=== PATIENT | male | born 1940 | race Caucasian/White ===

== ENCOUNTER → 2020-01-28 | Outpatient (CLI) | payer MEDICARE, OTHER ==
--- NOTE | 2020-01-28 11:30 | Diagnostic Imaging Report ---
INDICATION: BILATERAL POST TRAUMATIC OSTEOARTHRITIS TECHNIQUE: 2 views of the bilateral knee CORRELATION STUDY: None FINDINGS: Both knees demonstrate rather marked narrowing at the medial and to lesser degree lateral compartment. Medially, there is nearly gpdx-[id number] present of both knees. There is moderate calcinosis of the lateral compartments as well. Very mild marginal osteophyte formation is noted bilaterally. Additionally, there is marked narrowing at the patellofemoral compartments again of both knees. This includes prominent osteophyte formation of the distal anterior femur as well as superior and inferior pole of patella. IMPRESSION: 1. Rather markedly advanced tricompartment degenerative changes of both knees. The overall severity appears to be fairly similar between both sides. Dictated by: Dictated on workstation # [id number]
== END ==
LOC: RAD FS 10:49
PROVIDERS: ATTEND Emergency Medicine
DX: M17.0 Bilateral primary osteoarthritis of knee (principal)

== ENCOUNTER 2022-12-31 15:13 | Inpatient (IN) | payer MEDICARE, OTHER ==
[~2022-12-31] VITALS: Ht 172 cm; Wt 91.1 kg
[2022-12-31] MEDS ORDERED: NS IV 1000 ML 1,000 ML IV STA (15:24)
[2022-12-31] MEDS ORDERED: ASPIRIN 81 MG CHEWABLE TABLET PO ONE (15:30)
--- NOTE | 2022-12-31 15:43 | ED General ---
General Chief Complaint: Neurological Problems Stated Complaint: GEN WEAKNESS Nursing Triage Note: ARRIVED VIA EMS FROM HOME. EMS REPORTS PT BEING IN BED X2 DAYS ET COVERED IN URINE. PT COMPLAINS OF WEAKNESS AND CHEST PAIN. ALERT BUT REPEATS QUESTIONS. Source of Information: Patient, EMS History of Present Illness Date Seen by Provider: Dec 31, 2022 Time Seen by Provider: 15:13 Initial Comments 82-year-old male presenting by EMS with complaints of generalized weakness. He was also complaining of chest pain. He had not been out of bed for 2 days. He had been urinating on himself in bed. He is alert and awake but does ask repetitive questions. He states that he was also having back pain. He had denied any headache or fall or injury. He felt like he was having some shortness of breath. He has a history of hyperlipidemia, hypothyroid, type 2 diabetes, BPH, COPD, arrhythmia and has a pacemaker. He has chronic edema and takes Lasix. He usually follows with Dr. Oswald. He could not say why he could not get up and get out of bed or to walk. Family reports that he does have a history of recurrent urinary tract infections as well. Timing/Duration: 1-2 Days Severity: Severe Associated Systoms: Chest Pain; No Cough, No Diaphoresis, No Fever/Chills, No Headaches, No Loss of Appetite; Malaise; No Nausea/Vomiting, No Rash, No Seizure; Shortness of Air; No Syncope; Weakness Allergies and Home Medications Allergies Coded Allergies: No Known Drug Allergies (Unverified , 12/31/22) Patient Home Medication List Home Medication List Reviewed: Yes Review of Systems Review of Systems Constitutional: No chills, No fever; malaise, weakness EENTM: no symptoms reported Respiratory: see HPI Cardiovascular: see HPI Gastrointestinal: no symptoms reported Genitourinary: No dysuria Musculoskeletal: back pain Skin: no symptoms reported Psychiatric/Neurological: Weakness Past Lzpezse-Ncatol-Xulurv Hx Patient Social History Tobacco Use?: No Substance use?: No Alcohol Use?: Yes Alcohol Frequency: Couple times a week Physical Exam Vital Signs Vital Signs - First Documented 12/31/22 15:13 Temp 36.5 Pulse 39 Resp 16 B/P (MAP) 135/54 (81) Pulse Ox 96 O2 Delivery Room Air Capillary Refill : Less Than 3 Seconds Height, Weight, BMI Height: '" Weight: lbs. oz. kg; 31.00 BMI Method: General Appearance: No Apparent Distress, Other (Disheveled appearance and smells strongly of urine as he is in urine soaked clothing) HEENT: PERRL/EOMI, Pharynx Normal Neck: Full Range of Motion, Normal Inspection, Non Tender, Supple Respiratory: Chest Non Tender, Lungs Clear, Normal Breath Sounds, No Accessory Muscle Use, No Respiratory Distress Cardiovascular: Regular Rate, Rhythm, Normal Peripheral Pulses, Extra Beats Gastrointestinal: Normal Bowel Sounds, No Pulsatile Mass, Non Tender, Soft Rectal: Deferred Extremity: Normal Capillary Refill, Pedal Edema (2 + pitting edema to BLE) Neurologic/Psychiatric: Alert, Oriented x3, No Motor/Sensory Deficits, rolloff driver II- XII Norm as Tested Skin: Warm/Dry, Erythema (mild erythema to groin and buttocks from sitting in urine soaked clothing) Focused Exam Lactate Level 12/31/22 15:25: Lactic Acid Level 2.06*H Lactic Acid Level Laboratory Tests Test 12/31/22 15:25 Lactic Acid Level 2.06 MMOL/L (0.50-2.00) *H Progress/Results/Core Measures Suspected Sepsis SIRS Temperature: Pulse: 39 Respiratory Rate: 16 Laboratory Tests 12/31/22 16:05: White Blood Count 11.8H Blood Pressure 135 /54 Mean: 81 12/31/22 15:25: Lactic Acid Level 2.06*H Laboratory Tests 12/31/22 16:05: Creatinine 1.10, Platelet Count 200, Total Bilirubin 0.6 12/31/22 16:50: INR Comment 1.1 Results/Orders Lab Results Laboratory Tests Test 12/31/22 15:25 12/31/22 15:56 12/31/22 16:05 12/31/22 16:50 Range/Units Urine Color YELLOW Urine Clarity CLEAR Urine pH 5.5 5-9 Urine Specific [place] 1.025 H 1.016-1.022 Urine Protein NEGATIVE NEGATIVE Urine Glucose (UA) NEGATIVE NEGATIVE Urine Ketones 2+ H NEGATIVE Urine Nitrite NEGATIVE NEGATIVE Urine Bilirubin 1+ H NEGATIVE Urine Urobilinogen 0.2 < = 1.0 MG/DL Urine Leukocyte Esterase NEGATIVE NEGATIVE Urine RBC (Auto) NEGATIVE NEGATIVE Urine RBC 10-25 H /HPF Urine WBC 0-2 /HPF Urine Squamous Epithelial Cells NONE /HPF Urine Crystals NONE /LPF Urine Bacteria TRACE /HPF Urine Casts PRESENT /LPF Urine Hyaline Casts 0-2 H /LPF Urine Mucus NEGATIVE /LPF Urine Culture Indicated NO Lactic Acid Level 2.06 *H 0.50-2.00 MMOL/L Urine Opiates Screen NEGATIVE NEGATIVE Urine Oxycodone Screen NEGATIVE NEGATIVE Urine Methadone Screen NEGATIVE NEGATIVE Urine Barbiturates Screen POSITIVE H NEGATIVE Ur Tricyclic Antidepressants Screen NEGATIVE NEGATIVE Urine Phencyclidine Screen NEGATIVE NEGATIVE Urine Amphetamines Screen NEGATIVE NEGATIVE Urine Methamphetamines Screen NEGATIVE NEGATIVE Urine Benzodiazepines Screen NEGATIVE NEGATIVE Urine Cocaine Screen NEGATIVE NEGATIVE Urine Cannabinoids Screen POSITIVE H NEGATIVE Influenza Type A (RT-PCR) Not Detected Not Detecte Influenza Type B (RT-PCR) Not Detected Not Detecte SARS-CoV-2 RNA (RT-PCR) Not Detected Not Detecte White Blood Count 11.8 H 4.3-11.0 10^3/uL Red Blood Count 5.00 4.30-5.52 10^6/uL Hemoglobin 16.1 13.3-17.7 g/dL Hematocrit 49 40-54 % Mean Corpuscular Volume 97 80-99 fL Mean Corpuscular Hemoglobin 32 25-34 pg Mean Corpuscular Hemoglobin Concent 33 32-36 g/dL Red Cell Distribution Width 12.6 10.0-14.5 % Platelet Count 200 130-400 10^3/uL Mean Platelet Volume 9.0 9.0-12.2 fL Immature Granulocyte % (Auto) 1 % Neutrophils (%) (Auto) 87 H 42-75 % Lymphocytes (%) (Auto) 5 L 12-44 % Monocytes (%) (Auto) 7 0-12 % Eosinophils (%) (Auto) 0 0-10 % Basophils (%) (Auto) 0 0-10 % Neutrophils # (Auto) 10.3 H 1.8-7.8 10^3/uL Lymphocytes # (Auto) 0.6 L 1.0-4.0 10^3/uL Monocytes # (Auto) 0.9 0.0-1.0 10^3/uL Eosinophils # (Auto) 0.0 0.0-0.3 10^3/uL Basophils # (Auto) 0.0 0.0-0.1 10^3/uL Immature Granulocyte # (Auto) 0.1 0.0-0.1 10^3/uL Neutrophils % (Manual) 85 % Lymphocytes % (Manual) 7 % Monocytes % (Manual) 8 % Sodium Level 136 135-145 MMOL/L Potassium Level 4.2 3.6-5.0 MMOL/L Chloride Level 99 98-107 MMOL/L Carbon Dioxide Level 24 21-32 MMOL/L Anion Gap 13 5-14 MMOL/L Blood Urea Nitrogen 19 H 7-18 MG/DL Creatinine 1.10 0.60-1.30 MG/DL Estimat Glomerular Filtration Rate 67 BUN/Creatinine Ratio 17 Glucose Level 117 H 70-105 MG/DL Calcium Level 9.4 8.5-10.1 MG/DL Corrected Calcium 9.6 8.5-10.1 MG/DL Magnesium Level 2.3 1.6-2.4 MG/DL Total Bilirubin 0.6 0.1-1.0 MG/DL Aspartate Amino Transf (AST/SGOT) 19 5-34 U/L Alanine Aminotransferase (ALT/SGPT) 17 0-55 U/L Alkaline Phosphatase 96 40-136 U/L Total Creatine Kinase 152 30-200 U/L Myoglobin 99.0 H <72.0 NG/ML Troponin I < 0.30 <0.30 NG/ML Pro-B-Type Natriuretic Peptide 1999.0 H <450.0 PG/ML Total Protein 7.6 6.4-8.2 GM/DL Albumin 3.8 3.2-4.5 GM/DL Lipase 10 8-78 U/L Serum Alcohol < 10 <10 MG/DL Prothrombin Time 14.6 12.2-14.7 SEC INR Comment 1.1 0.8-1.4 Activated Partial Thromboplast Time 25 24-35 SEC D-Dimer 0.64 H 0.00-0.49 UG/ML My Orders Orders - MEET CHAPPELL MD Cbc And Automated Diff (12/31/22 15:19) Magnesium (12/31/22 15:19) Chest 1 View Ap/Pa Only (12/31/22 15:19) Ekg Tracing (12/31/22 15:19) Comprehensive Metabolic Panel (12/31/22 15:19) Myoglobin Serum (12/31/22 15:19) O2 (12/31/22 15:19) Monitor-Rhythm Ecg Trace Only (12/31/22 15:19) Aspirin Chewable Tablet (Aspirin Chewabl (12/31/22 15:30) Ed Iv/Invasive Line Start (12/31/22 15:19) Lipase (12/31/22 15:19) Troponin I Fs (12/31/22 15:19) Probnp Fs (12/31/22 15:19) Ua Culture If Indicated (12/31/22 15:19) Drug Screen Stat (Urine) (12/31/22 15:19) Alcohol (12/31/22 15:19) Blood Culture (12/31/22 15:19) Nichole Cath (12/31/22 15:19) Lactic Acid Analyzer (12/31/22 15:19) Covid 19 Inhouse Test (12/31/22 15:19) Influenza A And B By Pcr (12/31/22 15:19) Ct Head Wo (12/31/22 15:19) Ct Thoracic/Lumbar Spine Wo (12/31/22 15:19) Ns Iv 1000 Ml (Ns Iv 1000 Ml) (12/31/22 15:24) Creatine Kinase (12/31/22 15:55) Manual Differential (12/31/22 16:05) Creatine Kinase Mb (12/31/22 16:05) Protime With Inr (12/31/22 16:50) Partial Thromboplastin Time (12/31/22 16:50) Fibrin Degradation Products (12/31/22 16:50) Ketorolac Injection (Ketorolac Injection (12/31/22 17:22) Ed Admission (Communication) (12/31/22 18:14) Lactated Ringers 1,000 Ml (Lactated Ring (12/31/22 18:14) Medications Given in ED Current Medications Medications Dose Ordered Sig/Lora Route Start Time Stop Time Status Last Admin Dose Admin Aspirin 324 mg ONCE ONCE PO 12/31/22 15:30 12/31/22 15:31 DC 12/31/22 16:26 324 MG Vital Signs/I&O 12/31/22 15:13 Temp 36.5 Pulse 39 Resp 16 B/P (MAP) 135/54 (81) Pulse Ox 96 O2 Delivery Room Air Capillary Refill : Less Than 3 Seconds Blood Pressure Mean: 81 Progress Note #1: Progress Note Differential diagnosis includes stroke, myocardial infarction, electrolyte imbalance, UTI, sepsis, kidney failure, hepatic failure, alcohol abuse, drug abuse. Establish peripheral IV access and send labs for complete blood count, comprehensive metabolic profile, blood cultures, lactic acid, magnesium, troponin, proBNP, CK, CK-MB, myoglobin, alcohol, urinalysis, urine drug screen. Placed Nichole catheter as patient was having weakness where he could not get out of bed. Needed to obtain accurate ALBA's on the patient to see what is urine ou tput was. Concern for possible rhabdomyolysis. Obtain CT scan of the head, spine, Chest xray. Electrocardiogram to evaluate for ischemia, cardiac telemetry and watch his heart rate and rhythm. On my initial interpretation of his cardiac telemetry shows a paced rhythm with a heart rate of 73 bpm and bigeminy. There is no old tracings for comparison. Progress Note #2: Time: 16:35 Progress Note Labs show mild elevation of his white blood cell count of 11.8. He has 87% neutrophils. His comprehensive metabolic profile showed a BUN of 19 with a creatinine of 1.1. Glucose was slightly elevated at 117. Lactic acid was at the upper limit of normal at 2.06. His magnesium was normal at 2.3. Lipase also normal at 10. Alcohol level was normal at less than 10. His swab for COVID and flu was negative. Urinalysis had specific gravity 1.025 with 2+ ketones and 10-25 red blood cells. There is no leukocyte Estrace or nitrates and he had trace bacteria with 0-2 white blood cells. This did not appear to be an infected urine specimen that was obtained by catheterization. It did look like he had some dehydration with this elevated specific gravity. Awaiting imaging and cardiac enzymes. Progress Note #3: Time: 17:45 Progress Note His nephew has been sitting in the room with the patient and states that he has a DURABLE POWER OF WORKERS COMPENSATION CLAIMS ANALYST for the patient. Nephew reports that patient has no other family to help take care of him. Patient usually is living on his own and doing okay. He does state that the patient has been having hallucinations in the room which is new for him. He also stated that the patient has had a tremor for a long time and that he was prescribed medicine to help with that. The patient has never been diagnosed with Parkinson's or dementia. CTA scan imaging did not show any acute abnormality to account for his weakness, debility, delirium and hallucinations. His myoglobin was slightly elevated at 99 with the upper limit of normal at 72. His proBNP was slightly elevated at 1998. There is no previous labs for comparison. He was still too weak to try and stand or move in the room. He could barely sit up in the bed with assistance. [id number] Sheikh, the on-call hospitalist for [facility]. Patient history and presentation was reviewed with him. I reviewed relevant laboratory and imaging results as well as vital signs. Advised that patient was still too weak to get up and move here in the ED. He did want me to clarify with the family about DPOA, Dementia or parkinsons history, other family members or if only his Nephew to check on him. Will admit for delirium and hallucinations with debility and patient will likely require admit to penitentiary at discharge. will place queued orders on the patient. 1929 total CK was not elevated at 152. This helps to go against findings for rhabdomyolysis. 2209 EMS was finally able to come and take the patient for transport to [place]. ECG Initial ECG Impression Date: Dec 31, 2022 Initial ECG Impression Time: 15:31 Initial ECG Rate: 71 Initial ECG Comparisson: No Previous ECG Available Comment Paced rhythm with atrial and ventricular pacemaker. Heart rate 71 bpm. VT in terval [address] elevation. QT interval 445 ms with a QTc interval 467 ms. He has no prior tracing for comparison. He does have some artifact and wander on the tracing. Diagnostic Imaging Diagonstic Imaging: Xray Plain Films/CT/US/NM/MRI: chest Comments [facility]. [place], [place] NAME: HAWK NEVILLE [facility] REC#: [id number] PT STATUS: REG ER : 1940 PHYSICIAN: MEET CHAPPELL MD ADMIT DATE: 12/31/22/ER FS Draft Date of Exam:12/31/22 CHEST 1 VIEW AP/PA ONLY CLINICAL INDICATION: Patient with general weakness. EXAM: Portable chest x-ray upright view. COMPARISON: None. FINDINGS: Lungs/pleura: There is elevation of the right hemidiaphragm. There is mild right basilar atelectasis. There is no definite lung infiltrate. There is no pneumothorax. There is no pleural effusion. Mediastinum: Unremarkable. Pulmonary vasculature: There is mild pulmonary vascular congestion. Heart: There is cardiomegaly. Cardiac pacemaker is seen overlying the left chest with two leads projecting over the heart which appears intact. Bones/extrathoracic soft tissue: There are degenerative spurs involving the thoracic spine. IMPRESSION: 1: There is cardiomegaly with mild pulmonary vascular congestion which could be seen with congestive heart failure. 2: There is elevation of the right hemidiaphragm with mild right lung base atelectasis. Dictated on workstation # [id number] Dict: 12/31/221630 Trans: 12/31/221638 [id number] Interpreted by: JORDAN ESPINOZA MD Electronically signed by: Reviewed: Reviewed by Diagonstic Imaging: CT Plain Films/CT/US/NM/MRI: head Comments [facility] [place], [place] NAME: HAWK [facility]EV[facility]LE [facility] REC#: [id number] PT STATUS: REG ER : 1940 PHYSICIAN: MEET CHAPPELL MD ADMIT DATE: 12/31/22/ER FS Draft Date of Exam:12/31/22 CT HEAD WO PROCEDURE: CT head without contrast. TECHNIQUE: Multiple contiguous axial images were obtained through the brain without the use of intravenous contrast. Auto Exposure Controls were utilized during the CT exam to meet ALARA standards for radiation dose reduction. INDICATION: 68-year-old male with weakness. COMPARISONS: None. FINDINGS: Midline structures are not displaced. There are senescent changes in the brain with involutional changes and generalized atrophy. There is background chronic areas of microvascular ischemic change. Solis-white differentiation is maintained with no sulcal effacement. There are no abnormal extra-axial fluid collections or hemorrhage. Basilar cisterns appear normal. Sinuses, orbits and mastoid air cells are unremarkable. Bone windows show no calvarial changes IMPRESSION: Senescent brain with some mild involutional changes. Otherwise unremarkable nonenhanced CT brain. If symptoms warrant or persist, an MRI may be of further value. Dictated on workstation # [id number] Dict: 12/31/221629 Trans: 12/31/221632 PJE [id number] Interpreted by: GRECIA PERDUE MD Electronically signed by: Reviewed: Reviewed by Me Diagonstic Imaging: CT Plain Films/CT/US/NM/MRI: other (thoracic and lumbar spine) Comments [facility]. [place], [place] NAME: HAWK NEVILLE REC#: [id number] PT STATUS: REG ER : 1940 PHYSICIAN: MEET CHAPPELL MD ADMIT DATE: 12/31/22/ER FS Draft Date of Exam:12/31/22 CT THORACIC/LUMBAR SPINE WO CLINICAL INDICATION: Patient with weakness. Patient not able to get out of bed. Patient has back pain. EXAM: Axial CT scan of the thoracic and lumbar spine performed without IV contrast. Sagittal and coronal reformations were performed. Bone and soft tissue windows were created. Auto Exposure Controls were utilized during the CT exam to meet ALARA standards for radiation dose reduction. COMPARISON: None. FINDINGS: There is no acute thoracic or lumbar fracture or dislocation. There is chronic bilateral L5 spondylolysis with grade 1 anterolisthesis of L5 on S1. There are hypertrophic spurs throughout the thoracic and lumbar spine. There is severe bilateral L5-S1 neuroforamen narrowing. There is atelectasis involving the posterior aspects of both lungs. Thoracic and lumbar spine have normal alignment. The visualized extrathoracic, and lumbar soft tissue structures are unremarkable. IMPRESSION: 1: There is no acute thoracic spine and lumbar spine fracture or dislocation. 2: There is chronic bilateral L5 spondylolysis with grade 1 anterolisthesis of L5 on S1. Dictated on workstation # [id number] Dict: 12/31/22 1635 Trans: 12/31/[address] [facility] [id number] Interpreted by: JORDAN ESPINOZA MD Electronically signed by: Reviewed: Reviewed by Me Departure Communication (Admissions) Time/Spoke to Admitting Phy: 17:[phone] Sheikh, the on-call hospitalist for [facility]. Patient history and presentation was reviewed with him. I reviewed relevant laboratory and imaging results as well as vital signs. Advised that patient was still too weak to get up and move here in the ED. He did want me to clarify with the family about DPOA, Dementia or parkinsons history, other family members or if only his Nephew to check on him. Will admit for delirium and hallucinations with debility and patient will likely require admit to penitentiary at discharge. will place queued orders on the patient. Impression Primary Impression: Delirium Additional Impressions: Debilitated patient Weakness Dehydration Disposition: 30 STILL A PATIENT Condition: Stable Admissions Decision to Admit Reason: Admit from ER (General) Decision to Admit/Date: Dec 31, 2022 Time/Decision to Admit Time: 17:45 Departure-Patient Inst. Referrals: FEI OSWALD DO (PCP/Family) Primary Care Physician MEET CHAPPELL MD Dec 31, 2022 15:43
[2022-12-31 15:45] LABS: BILIRUBIN,URINE 1+ (NEGATIVE); CLARITY,URINE CLEAR; COLOR,URINE YELLOW; GLUCOSE, URINE (UA) NEGATIVE (NEGATIVE); KETONES,URINE 2+ (NEGATIVE); LEUKOCYTE ESTERASE ,URINE NEGATIVE (NEGATIVE); NITRITE,URINE NEGATIVE (NEGATIVE); PH,URINE 5.5 (5-9); PROTEIN,URINE NEGATIVE (NEGATIVE)
[2022-12-31 15:53] LABS: BACTERIA,URINE TRACE /HPF; HYALINE CASTS, URINE 0-2 /LPF; WBC,URINE 0-2 /HPF
[2022-12-31 15:56] LABS: BARBITURATE SCREEN URINE POSITIVE (NEGATIVE); CANNABINOID SCREEN, URINE POSITIVE (NEGATIVE)
[2022-12-31 15:57] LABS: AMPHETAMINE SCREEN, URINE NEGATIVE (NEGATIVE); COCAINE SCREEN URINE NEGATIVE (NEGATIVE); METHADONE STAT NEGATIVE (NEGATIVE); OPIATE SCREEN URINE NEGATIVE (NEGATIVE); OXYCODONE STAT NEGATIVE (NEGATIVE); TRICYCLIC ANTIDEPRESSANTS SCRE NEGATIVE (NEGATIVE)
[2022-12-31 16:09] LABS: BASOPHILS % (AUTO) 0 % (0-10); EOSINOPHILS % (AUTO) 0 % (0-10); HEMATOCRIT 49 % (40-54); HEMOGLOBIN 16.1 g/dL (13.3-17.7); LYMPHOCYTES # (AUTO) 0.6 10^3/uL (1.0-4.0); LYMPHOCYTES % (AUTO) 5 % (12-44); MEAN CORPUSCULAR HEMOGLOBIN 32 pg (25-34); MEAN CORPUSCULAR HGB CONC 33 g/dL (32-36); MEAN CORPUSCULAR VOLUME 97 fL (80-99); MONOCYTES # (AUTO) 0.9 10^3/uL (0.0-1.0); MONOCYTES % (AUTO) 7 % (0-12); NEUTROPHILS # (AUTO) 10.3 10^3/uL (1.8-7.8); NEUTROPHILS % (AUTO) 87 % (42-75); PLATELET COUNT 200 10^3/uL (130-400); WHITE BLOOD COUNT 11.8 10^3/uL (4.3-11.0)
[2022-12-31 16:30] LABS: BILIRUBIN,TOTAL 0.6 MG/DL (0.1-1.0); CALCIUM 9.4 MG/DL (8.5-10.1); CARBON DIOXIDE 24 MMOL/L (21-32); CHLORIDE 99 MMOL/L (98-107); MAGNESIUM 2.3 MG/DL (1.6-2.4); POTASSIUM 4.2 MMOL/L (3.6-5.0); SODIUM 136 MMOL/L (135-145); TOTAL PROTEIN 7.6 GM/DL (6.4-8.2)
[2022-12-31 16:34] LABS: ALKALINE PHOSPHATASE 96 U/L (40-136); BUN/CREATININE RATIO 17; GFR ESTIMATED 67; GLUCOSE 117 MG/DL (70-105)
--- NOTE | 2022-12-31 16:34 | Diagnostic Imaging Report ---
PROCEDURE: CT head without contrast. TECHNIQUE: Multiple contiguous axial images were obtained through the brain without the use of intravenous contrast. Auto Exposure Controls were utilized during the CT exam to meet ALARA standards for radiation dose reduction. INDICATION: 68-year-old male with weakness. COMPARISONS: None. FINDINGS: Midline structures are not displaced. There are senescent changes in the brain with involutional changes and generalized atrophy. There is background chronic areas of microvascular ischemic change. Solis-white differentiation is maintained with no sulcal effacement. There are no abnormal extra-axial fluid collections or hemorrhage. Basilar cisterns appear normal. Sinuses, orbits and mastoid air cells are unremarkable. Bone windows show no calvarial changes IMPRESSION: Senescent brain with some mild involutional changes. Otherwise unremarkable nonenhanced CT brain. If symptoms warrant or persist, an MRI may be of further value. Dictated by: Dictated on workstation # [id number]
[2022-12-31 16:35] LABS: ALANINE AMINOTRANSFERASE 17 U/L (0-55); ALBUMIN 3.8 GM/DL (3.2-4.5); LIPASE 10 U/L (8-78)
--- NOTE | 2022-12-31 16:39 | Diagnostic Imaging Report ---
CLINICAL INDICATION: Patient with general weakness. EXAM: Portable chest x-ray upright view. COMPARISON: None. FINDINGS: Lungs/pleura: There is elevation of the right hemidiaphragm. There is mild right basilar atelectasis. There is no definite lung infiltrate. There is no pneumothorax. There is no pleural effusion. Mediastinum: Unremarkable. Pulmonary vasculature: There is mild pulmonary vascular congestion. Heart: There is cardiomegaly. Cardiac pacemaker is seen overlying the left chest with two leads projecting over the heart which appears intact. Bones/extrathoracic soft tissue: There are degenerative spurs involving the thoracic spine. IMPRESSION: 1: There is cardiomegaly with mild pulmonary vascular congestion which could be seen with congestive heart failure. 2: There is elevation of the right hemidiaphragm with mild right lung base atelectasis. Dictated by: Dictated on workstation # [id number]
--- NOTE | 2022-12-31 16:47 | Diagnostic Imaging Report ---
CLINICAL INDICATION: Patient with weakness. Patient not able to get out of bed. Patient has back pain. EXAM: Axial CT scan of the thoracic and lumbar spine performed without IV contrast. Sagittal and coronal reformations were performed. Bone and soft tissue windows were created. Auto Exposure Controls were utilized during the CT exam to meet ALARA standards for radiation dose reduction. COMPARISON: None. FINDINGS: There is no acute thoracic or lumbar fracture or dislocation. There is chronic bilateral L5 spondylolysis with grade 1 anterolisthesis of L5 on S1. There are hypertrophic spurs throughout the thoracic and lumbar spine. There is severe bilateral L5-S1 neuroforamen narrowing. There is atelectasis involving the posterior aspects of both lungs. Thoracic and lumbar spine have normal alignment. The visualized extrathoracic, and lumbar soft tissue structures are unremarkable. IMPRESSION: 1: There is no acute thoracic spine and lumbar spine fracture or dislocation. 2: There is chronic bilateral L5 spondylolysis with grade 1 anterolisthesis of L5 on S1. Dictated by: Dictated on workstation # [id number]
[2022-12-31 17:06] LABS: INR 1.1 (0.8-1.4); PROTHROMBIN TIME PATIENT 14.6 SEC (12.2-14.7)
[2022-12-31 17:12] LABS: LYMPHOCYTES % (MANUAL) 7 %; MONOCYTES % (MANUAL) 8 %; NEUTROPHILS % (MANUAL) 85 %
[2022-12-31] MEDS ORDERED: KETOROLAC INJ 15 MG/ML VIAL IVP STA (17:22)
[2022-12-31] MEDS ORDERED: LACTATED RINGERS 1,000 ML 1,000 ML IV STA (18:14)
[2022-12-31] MEDS ORDERED: HALOPERIDOL INJECTION 5 MG/ML VIAL IM PRN (23:30)
[2022-12-31] MEDS ORDERED: ONDANSETRON 4 MG ORAL DISSOLVE TABLET PO PRN (23:30)
[2022-12-31] MEDS ORDERED: LACTULOSE SYRUP 10GM/15ML 30ML UDC PO PRN (23:30)
[2022-12-31] MEDS ORDERED: BISACODYL 10 MG SUPPOSITORY PR PRN (23:30)
[2022-12-31] MEDS ORDERED: ANTACID SUSPENSION 30 ML UDC PO PRN (23:30)
[2022-12-31] MEDS ORDERED: ONDANSETRON INJECTION 4 MG/2 ML (SDV) IV PRN (23:30)
[2023-01-01] VITALS (7 sets, daily range): BP systolic 103–142; BP diastolic 60–73
[2023-01-01 05:42] LABS: BASOPHILS % (AUTO) 0 % (0-10); EOSINOPHILS % (AUTO) 0 % (0-10); HEMATOCRIT 40 % (40-54); HEMOGLOBIN 13.5 g/dL (13.3-17.7); LYMPHOCYTES # (AUTO) 0.6 10^3/uL (1.0-4.0); LYMPHOCYTES % (AUTO) 6 % (12-44); MEAN CORPUSCULAR HEMOGLOBIN 32 pg (25-34); MEAN CORPUSCULAR HGB CONC 34 g/dL (32-36); MEAN CORPUSCULAR VOLUME 96 fL (80-99); MEAN PLATELET VOLUME 9.1 fL (9.0-12.2); MONOCYTES # (AUTO) 1.1 10^3/uL (0.0-1.0); MONOCYTES % (AUTO) 11 % (0-12); NEUTROPHILS # (AUTO) 8.5 10^3/uL (1.8-7.8); NEUTROPHILS % (AUTO) 83 % (42-75); PLATELET COUNT 178 10^3/uL (130-400); WHITE BLOOD COUNT 10.3 10^3/uL (4.3-11.0)
[2023-01-01 05:51] LABS: POTASSIUM 3.9 MMOL/L (3.6-5.0)
[2023-01-01 05:52] LABS: CALCIUM 8.4 MG/DL (8.5-10.1)
[2023-01-01 05:56] LABS: CREATININE SERUM 1.04 MG/DL (0.60-1.30)
[2023-01-01] MEDS: inSUlin ASPART 1 UNIT/0.01 ML (PER UNIT) SC SCH ×4 (06:00→21:18)
[2023-01-01] MEDS: LEVOTHYROXINE 75 MCG TABLET PO SCH (06:01)
[2023-01-01] MEDS: FUROSEMIDE 20 MG TABLET PO SCH ×2 (06:01→17:12)
[2023-01-01] MEDS: DOCUSATE SODIUM 100 MG CAPSULE PO SCH ×2 (08:12→20:51)
[2023-01-01] MEDS: APIXABAN 5 MG TABLET PO SCH ×2 (08:12→20:51)
[2023-01-01] MEDS ORDERED: SPIRONOLACTONE 25 MG TABLET PO SCH (09:00)
[2023-01-01] MEDS: ACETAMINOPHEN 325 MG TABLET PO PRN (09:27)
--- NOTE | 2023-01-01 09:54 | Physical Therapy Evaluation ---
PT Evaluation-General Medical Diagnosis Admission Date Dec 31, 2022 at 23:05 Medical Diagnosis: delirium, weakness, dehydration Onset Date: Dec 31, 2022 Therapy Diagnosis Therapy Diagnosis: debility Precautions Precautions/Isolations: Standard Precautions Weight Bear Status Right Lower Extremity: Right Full Weight Bearing Left Lower Extremity: Left Full Weight Bearing Referral Physician: Kori Reason for Referral: Evaluation/Treatment Medical History Pertinent Medical History: COPD, DM, Hypothroidism Additional Medical History HlP, BPH, arrhythmia, pacemaker, UTIs Current History EMS with c/o generalized weakness, chest pain. Pt. had been in bed for 2 days. Reviewed History: Yes Social History Home: Multilevel Current Living Status: Alone Entry Into Home: Stairs With Railing PT Steps Into Home: 4 PT Steps Inside Home: 10 Prior Prior Level of Function SCALE: Activities may be completed with or without assistive devices. 6-Ucqcfntpgy-tfnzcaq completes the activity by him/herself with no assistance from a helper. 5-Set-up or Clean-up Assistance-helper sets up or cleans up; patient completes activity. [place] assists only prior to or following the activity. 4-Supervision or Touching Assistance-helper provides verbal cues and/or touchin g/steadying and/or contact guard assistance as patient completes activity. Assistance may be provided throughout the activity or intermittently. 3-Partial/Moderate Assistance-helper does LESS THAN HALF the effort. [place] lifts, holds or supports trunk or limbs, but provides less than half the effort. 2-Substantial/Maximal Assistance-helper does MORE THAN HALF the effort. [place] lifts or holds trunk or limbs and provides more than half the effort. 3-Tarjhnxyb-lzghoo does ALL the effort. Patient does none of the effort to complete the activity. Or, the assistance of 2 or more helpers is required for the patient to complete the activity. If activity was not attempted, code reason: 7-Patient Refused. 9-Not Applicable-not attempted and the patient did not perform the activity before the current illness, exacerbation or injury. 10-Not Attempted due to Environmental Limitations-(lack of equipment, weather restraints, etc.). 88-Not Attempted due to Medical Conditions or Safety Concerns. Bed Mobility: 6 Transfers (B,C,W/C): 6 Gait: 6 Stairs: 6 Indoor Mobility (Ambulation): Independent Stairs: Independent Prior Devices Use: Walker PT Evaluation-Current Subjective Pt. c/o R ear/head pain and frequently asks for pain medicine. Nursing notified. Pt. agrees to sit up in chair. Objective Patient Orientation: Person Attachments: Nichole Catheter ROM/Strength ROM Upper Extremities WFL ROM Lower Extremities WFL Strength Upper Extremities n/a Strength Lower Extremities Grossly 2+/5 Integumentary/Posture Integumentary swelling (B) LE's Bowel Incontinence: No Bladder Incontinence: Nichole Cath Posture upright Neuromuscular (Tone, Coordination, Reflexes) diminished, occasional tremors observed Sensory Vision: Functional Hearing: Functional Sensation Right Upper Extremit: Intact Sensation Left Upper Extremity: Intact Sensation Right Lower Extremit: Intact Sensation Left Lower Extremity: Intact Transfers Lying to Sitting/Side of Bed(Q: 1 Sit to Stand (QC): 1 Chair/Obg-ub-Fczqg Xfer(QC): 1 Gait Does the Patient Walk?: No and Walking Goal IS indicated Balance Sitting Static: Fair Sitting Dynamic: Fair Standing Static: Poor Standing Dynamic: Poor Assessment/Needs Pt. is an 82 y.o. male with significant weakness and debility. He currently requires assist of 2-3 for transfers. Lyudmila sling placed under patient to aid in returned to bed from the chair. Pt. did have fair/good sitting balance at edge of bed but inability to stand. Pt. would benefit from skilled PT to improve strength and safe mobility. Likely will need detention care for discharge planning. Rehab Potential: Fair PT Casing Wringer Operator Goals Longterm Goals PT Casing Wringer Operator Goals Time Frame: Jan 08, 2023 Roll Left & Right (QC): 4 Sit to Lying (QC): 4 Lying-Sitting on Side/Bed(QC): 4 Sit to Stand (QC): 3 Chair/Cpx-id-Hswbq Xfer(QC): 3 Does the Patient Walk: Yes Walk 10 feet (QC): 3 PT Plan Problem List Problem List: Activity Tolerance, Functional Strength, Safety, Balance, Gait, Transfer, Bed Mobility, ROM Treatment/Plan Treatment Plan: Continue Plan of Care Treatment Plan: Bed Mobility, Concurrent Therapy, Education, Functional Activity Christelle, Functional Strength, Gait, Safety, Therapeutic Exercise, Transfers Treatment Duration: Jan 08, 2023 Frequency: 6 times per week Estimated Hrs Per Day: .25 hour per day Patient and/or Family Agrees t: Yes Time Time In: 899 Time Out: 924 DATE: Jan 01, 2023 Total Billed Treatment Time: 25 Total Billed Treatment 1, EVH 10', FA 15' BLANCO JOYNER PT Jan 01, 2023 09:54
[2023-01-01] MEDS ORDERED: FINA5TAB6 PO (11:46)
[2023-01-01] MEDS ORDERED: LEVO75TA PO (11:51)
[2023-01-01] MEDS ORDERED: EZET10TA49 PO (11:51)
[2023-01-01] MEDS ORDERED: TMSL.4C PO (11:51)
[2023-01-01] MEDS ORDERED: MIRA50TA PO (12:09)
[2023-01-01] MEDS ORDERED: PRIM125T PO (12:09)
[2023-01-01] MEDS ORDERED: APIX5TAB PO (12:09)
[2023-01-01] MEDS ORDERED: METF-397 PO (12:09)
[2023-01-01] MEDS ORDERED: FURO-124 PO (12:09)
[2023-01-01] MEDS: FINASTERIDE 5 MG TABLET PO SCH (12:24)
[2023-01-01] MEDS: oxyCODONE IMMEDIATE RELEASE 5 MG TABLET PO PRN ×3 (12:25→23:50)
[2023-01-01] MEDS: PRIMIDONE 250MG TABLET PO SCH (12:25)
[2023-01-01] MEDS: TAMSULOSIN 0.4 MG (FLOMAX) CAP PO SCH (17:12)
--- NOTE | 2023-01-01 18:27 | History & Physical-Hospitalist ---
History of Present Illness HPI/Chief Complaint William Flynn is an 82 year old male with PMH HTN, T2DM, HLD, AFib, CHF, pacemaker, BPH, obesity, who presented with weakness. He had reportedly not been out of bed for a couple days. He reportedly had urine on his clothing. He says he is normally able to walk, usually with a walker, but he can get around without any assistive device. He is currently unable to stand. He reports a right sided headache. he denies vision changes. He denies speech changes. He denies chest pain. He denies shortness of breath. He denies abdominal pain, nausea, vomiting, diarrhea. He denies dysuria. Source: patient Exam Limitations: no limitations Date Seen 01/01/23 Time Seen by a Provider: 10:50 Attending Physician Luis Fernando Oswald DO PCP Admitting Physician: Kayla Caro MD Attending Physician: Kayla Caro MD Referring Physician Date of Admission Dec 31, 2022 at 23:05 Home Medications & Allergies Home Medications Reviewed patient Home Medication Reconciliation performed by pharmacy medication reconciliations microbiology technician and/or nursing. Patients Allergies have been reviewed. Allergies Allergies Coded Allergies No Known Drug Allergies (Pmjyapymlb00/10/23) Past Bqqnjpw-Ybasfy-Vawylp Hx Patient Social History Tobacco Use?: No Use of E-Cig and/or Vaping dev: No Substance use?: No Alcohol Use?: Yes Alcohol Frequency: Couple times a week Pt feels they are or have been: No Current Status Advance Directives: Yes Advance Directive Location: Copy placed in chart Communicates: Verbally Primary Language: Malay Preferred Spoken Language: Malay Is interpretation needed?: No Implanted or Applied Medical D: Pacemaker Family Medical History No Pertinent Family Hx Review of Systems Constitutional: weakness Respiratory: no symptoms reported Cardiovascular: no symptoms reported Gastrointestinal: no symptoms reported Physical Exam Physical Exam Vital Signs Vital Signs - First Documented 12/31/22 01/01/23 15:13 09:55 Temp 36.5 Pulse 39 Resp 16 B/P (MAP) 135/54 (81) Pulse Ox 96 O2 Delivery Room Air O2 Flow Rate 0.00 Capillary Refill : Less Than 3 Seconds Height, Weight, BMI Height: '" Weight: lbs. oz. kg; 32.04 BMI Method: General Appearance: No Apparent Distress, Obese HEENT: PERRL/EOMI, Pharynx Normal Neck: Normal Inspection, Supple Respiratory: Lungs Clear, No Respiratory Distress Cardiovascular: Regular Rate, Rhythm, No Murmur Gastrointestinal: Normal Bowel Sounds, Non Tender, Soft Extremity: Normal Inspection, Pedal Edema Neurologic/Psychiatric: Alert, Depressed Affect, Motor Weakness (bilateral lower extremities R>L) Skin: Normal Color, Warm/Dry Results Results/Procedures Labs Laboratory Tests 12/31/22 16:05 01/01/23 05:33 Patient resulted labs reviewed. Imaging: Reviewed Imaging Report Assessment/Plan Admission Diagnosis Weakness Admission Status: Inpatient Order (span 2 midnights) Reason for Inpatient Admission: CHF Assessment and Plan Weakness Stroke like symptoms Debility Confusion CT head without acute abnormalities CT spine without cause for weakness Confusion resolved Aspirin Ezetimibe Lipid panel ordered MRI brain Tuesday Carotid ultrasound Echo with negative bubble study PT/OT Chest pain Elevated BNP Chronic HFpEF Chest pain resoved Troponin negative BNP elevated Echo with EF 70-75% Hold diuretics Lactic acidosis Hold diuretics HTN HLD AFib Pacemaker BPH Obesity Continue home meds as able Diagnosis/Problems Diagnosis/Problems (1) Weakness Status: Acute (2) Stroke-like symptoms Status: Acute (3) Delirium Status: Acute (4) Chest pain Status: Acute (5) Elevated brain natriuretic peptide (BNP) level Status: Acute (6) Chronic heart failure with preserved ejection fraction (HFpEF) Status: Chronic (7) HTN (hypertension) Status: Chronic (8) HLD (hyperlipidemia) (9) Afib Status: Chronic (10) BPH (benign prostatic hyperplasia) Status: Chronic (11) Obesity Status: Chronic (12) T2DM (type 2 diabetes mellitus) Status: Chronic Qualifiers: Diabetes mellitus rat exterminator insulin use: without rat exterminator use KAYLA CARO MD Jan 01, 2023 18:27
[2023-01-01] MEDS: MELATONIN 3 MG TABLET PO PRN (23:50)
[2023-01-02 04:00] VITALS: BP 113/60
[2023-01-02] MEDS: PRIMIDONE 250MG TABLET PO SCH (06:02)
[2023-01-02] MEDS: inSUlin ASPART 1 UNIT/0.01 ML (PER UNIT) SC SCH ×4 (06:02→20:44)
[2023-01-02] MEDS: LEVOTHYROXINE 75 MCG TABLET PO SCH (06:02)
[2023-01-02 06:05] LABS: BASOPHILS % (AUTO) 0 % (0-10); EOSINOPHILS % (AUTO) 0 % (0-10); HEMATOCRIT 40 % (40-54); HEMOGLOBIN 13.3 g/dL (13.3-17.7); LYMPHOCYTES # (AUTO) 0.7 10^3/uL (1.0-4.0); LYMPHOCYTES % (AUTO) 8 % (12-44); MEAN CORPUSCULAR HEMOGLOBIN 32 pg (25-34); MEAN CORPUSCULAR HGB CONC 34 g/dL (32-36); MEAN CORPUSCULAR VOLUME 95 fL (80-99); MEAN PLATELET VOLUME 9.3 fL (9.0-12.2); MONOCYTES % (AUTO) 10 % (0-12); NEUTROPHILS # (AUTO) 7.7 10^3/uL (1.8-7.8); NEUTROPHILS % (AUTO) 81 % (42-75); PLATELET COUNT 184 10^3/uL (130-400); WHITE BLOOD COUNT 9.5 10^3/uL (4.3-11.0)
[2023-01-02 06:24] LABS: POTASSIUM 3.5 MMOL/L (3.6-5.0)
[2023-01-02 06:25] LABS: CALCIUM 8.4 MG/DL (8.5-10.1)
[2023-01-02 06:30] LABS: CREATININE SERUM 1.07 MG/DL (0.60-1.30)
[2023-01-02 07:35] VITALS: BP 126/60
[2023-01-02] MEDS ORDERED: NS IV 500 ML 500 ML IV PRN (08:15)
[2023-01-02] MEDS ORDERED: POTASSIUM CHLORIDE 20 MEQ TABLET PO ONE (08:15)
[2023-01-02] MEDS: FINASTERIDE 5 MG TABLET PO SCH (08:16)
[2023-01-02] MEDS: ACETAMINOPHEN 325 MG TABLET PO PRN ×2 (08:16→14:56)
[2023-01-02] MEDS: oxyCODONE IMMEDIATE RELEASE 5 MG TABLET PO PRN ×3 (08:16→20:43)
[2023-01-02] MEDS: DOCUSATE SODIUM 100 MG CAPSULE PO SCH ×2 (08:16→20:44)
[2023-01-02] MEDS: ASPIRIN enteric coated 81MG TABLET PO SCH (08:16)
[2023-01-02] MEDS: APIXABAN 5 MG TABLET PO SCH ×2 (08:17→20:43)
[2023-01-02 11:30] VITALS: BP 114/72
[2023-01-02 15:22] VITALS: BP 90/57
--- NOTE | 2023-01-02 17:53 | Progress Note - Hospitalist ---
Subjective HPI/CC On Admission Date Seen by Provider: Jan 02, 2023 Time Seen by Provider: 09:55 William Flynn is an 82 year old male with PMH HTN, T2DM, HLD, AFib, CHF, pacemaker, BPH, obesity, who presented with weakness. He had reportedly not been out of bed for a couple days. He reportedly had urine on his clothing. He says he is normally able to walk, usually with a walker, but he can get around without any assistive device. He is currently unable to stand. He reports a right sided headache. he denies vision changes. He denies speech changes. He denies chest pain. He denies shortness of breath. He denies abdominal pain, na usea, vomiting, diarrhea. He denies dysuria. Subjective/Events-last exam He has no new complaints. His legs remain weak. He has no other complaints. Focused Exam Lactate Level 12/31/22 15:25: Lactic Acid Level 2.06*H Objective Exam Vital Signs Vital Signs Date Time Temp Pulse Resp B/P (MAP) Pulse Ox O2 Delivery O2 Flow Rate FiO2 01/02/23 15:22 37.0 65 16 90/57 (68) 94 Room Air 01/02/23 07:15 0.00 Capillary Refill : Less Than 3 Seconds General Appearance: No Apparent Distress, Obese Respiratory: Lungs Clear, No Respiratory Distress Cardiovascular: Regular Rate, Rhythm, No Murmur Gastrointestinal: Normal Bowel Sounds, Soft Extremity: Non Tender, Pedal Edema Neurologic/Psychiatric: Alert, Motor Weakness Skin: Normal Color, Warm/Dry Results/Procedures Lab Laboratory Tests 01/02/23 05:39 Patient resulted labs reviewed. Imaging: Reviewed Imaging Report Assessment/Plan Assessment and Plan Assess & Plan/Chief Complaint Weakness Stroke like symptoms Debility Confusion CT head without acute abnormalities CT spine without cause for weakness Confusion resolved Aspirin Ezetimibe MRI brain Tuesday Carotid ultrasound Echo with negative bubble study PT/OT Chest pain Elevated BNP Chronic HFpEF Chest pain resoved Troponin negative BNP elevated Echo with EF 70-75% Hold diuretics Lactic acidosis Hold diuretics HTN HLD AFib Pacemaker BPH Obesity Continue home meds as able Diagnosis/Problems Diagnosis/Problems (1) Weakness Status: Acute (2) Stroke-like symptoms Status: Acute (3) Delirium Status: Acute (4) Chest pain Status: Acute (5) Elevated brain natriuretic peptide (BNP) level Status: Acute (6) Chronic heart failure with preserved ejection fraction (HFpEF) Status: Chronic (7) HTN (hypertension) Status: Chronic (8) HLD (hyperlipidemia) (9) Afib Status: Chronic (10) BPH (benign prostatic hyperplasia) Status: Chronic (11) Obesity Status: Chronic (12) T2DM (type 2 diabetes mellitus) Status: Chronic Qualifiers: Diabetes mellitus terminal worker insulin use: without terminal worker use FRANCINE CARO MD Jan 02, 2023 17:52
[2023-01-02] MEDS: TAMSULOSIN 0.4 MG (FLOMAX) CAP PO SCH (18:17)
[2023-01-02 19:07] VITALS: BP 117/69
[2023-01-02] MEDS: MELATONIN 3 MG TABLET PO PRN (20:43)
[2023-01-02 23:35] VITALS: BP 140/68
[2023-01-03 03:29] VITALS: BP 134/61
[2023-01-03 04:57] LABS: BASOPHILS % (AUTO) 0 % (0-10); EOSINOPHILS # (AUTO) 0.1 10^3/uL (0.0-0.3); EOSINOPHILS % (AUTO) 1 % (0-10); HEMATOCRIT 38 % (40-54); HEMOGLOBIN 12.7 g/dL (13.3-17.7); LYMPHOCYTES # (AUTO) 0.7 10^3/uL (1.0-4.0); LYMPHOCYTES % (AUTO) 8 % (12-44); MEAN CORPUSCULAR HEMOGLOBIN 31 pg (25-34); MEAN CORPUSCULAR HGB CONC 33 g/dL (32-36); MEAN CORPUSCULAR VOLUME 94 fL (80-99); MEAN PLATELET VOLUME 10.1 fL (9.0-12.2); MONOCYTES # (AUTO) 0.8 10^3/uL (0.0-1.0); MONOCYTES % (AUTO) 9 % (0-12); NEUTROPHILS # (AUTO) 6.9 10^3/uL (1.8-7.8); NEUTROPHILS % (AUTO) 81 % (42-75); PLATELET COUNT 223 10^3/uL (130-400); WHITE BLOOD COUNT 8.5 10^3/uL (4.3-11.0)
[2023-01-03 05:19] LABS: POTASSIUM 4.1 MMOL/L (3.6-5.0)
[2023-01-03 05:20] LABS: CALCIUM 8.4 MG/DL (8.5-10.1)
[2023-01-03 05:24] LABS: CREATININE SERUM 1.07 MG/DL (0.60-1.30)
[2023-01-03 05:27] LABS: MAGNESIUM 2.1 MG/DL (1.6-2.4)
[2023-01-03] MEDS: POTASSIUM CL 10MEQ/50ML IVPB 50 ML IV SCH (05:44)
[2023-01-03] MEDS: POTASSIUM CHLORIDE 20 MEQ TABLET PO SCH (05:44)
[2023-01-03] MEDS: MAGNESIUM 1 GM/100 ML IVPB 100 ML IV SCH (05:44)
[2023-01-03] MEDS: POTASSIUM BICARB 20 MEQ effervescent TABLET PO SCH (05:44)
[2023-01-03] MEDS: inSUlin ASPART 1 UNIT/0.01 ML (PER UNIT) SC SCH ×4 (05:45→21:04)
[2023-01-03] MEDS: LEVOTHYROXINE 75 MCG TABLET PO SCH (06:38)
[2023-01-03] MEDS: PRIMIDONE 250MG TABLET PO SCH (06:38)
[2023-01-03 07:20] VITALS: BP 128/68
[2023-01-03] MEDS: DOCUSATE SODIUM 100 MG CAPSULE PO SCH ×2 (08:14→21:33)
[2023-01-03] MEDS: APIXABAN 5 MG TABLET PO SCH ×2 (08:14→21:33)
[2023-01-03] MEDS: FINASTERIDE 5 MG TABLET PO SCH (08:15)
[2023-01-03] MEDS: ASPIRIN enteric coated 81MG TABLET PO SCH (08:15)
[2023-01-03] MEDS: oxyCODONE IMMEDIATE RELEASE 5 MG TABLET PO PRN ×3 (08:15→21:34)
--- NOTE | 2023-01-03 09:57 | Physical Therapy Daily Note ---
PT Daily Note-Current Subjective Patient reluctantly agrees to PT. Pain Numeric Pain Scale: 10-Worst Possible Pain Location: Soft Tissue Location Body Site: Neck Pain Description: Chronic Section J - Health Conditions 1. Rarely or not at all 2. Occasionally 3. Frequently 4. Almost constantly 8. Unable to answer Pain Effect on Sleep: 4 Pain Interference with Therapy: 4 Pain Interference w/Day-to-Day: 4 Transfers SCALE: Activities may be completed with or without assistive devices. 5-Rlkmxzlzbp-gucsmea completes the activity by him/herself with no assistance from a helper. 5-Set-up or Clean-up Assistance-helper sets up or cleans up; patient completes activity. [place] assists only prior to or following the activity. 4-Supervision or Touching Assistance-helper provides verbal cues and/or touching/steadying and/or contact guard assistance as patient completes activity. Assistance may be provided throughout the activity or intermittently. 3-Partial/Moderate Assistance-helper does LESS THAN HALF the effort. [place] lifts, holds or supports trunk or limbs, but provides less than half the effort. 2-Substantial/Maximal Assistance-helper does MORE THAN HALF the effort. [place] lifts or holds trunk or limbs and provides more than half the effort. 1-Sktxzokxc-xutios does ALL the effort. Patient does none of the effort to complete the activity. Or, the assistance of 2 or more helpers is required for the patient to complete the activity. If activity was not attempted, code reason: 7-Patient Refused. 9-Not Applicable-not attempted and the patient did not perform the activity before the current illness, exacerbation or injury. 10-Not Attempted due to Environmental Limitations-(lack of equipment, weather restraints, etc.). 88-Not Attempted due to Medical Conditions or Safety Concerns. Sit to Lying (QC): 1 (x 2) Lying to Sitting/Side of Bed(Q: 1 (x 2) Sit to Stand (QC): 1 (x 2) Weight Bearing Right Lower Extremity: Right Full Weight Bearing Left Lower Extremity: Left Full Weight Bearing Exercises Seated Therapy Exercises: Long arc quads Seated Reps: 5 Assessment Patient sat EOB for several minutes SBA. Patient unable to perform cervical rotation due to muscle tightness. Patient very resistive with all mobility. Able to perform sit to stand with extreme flexed trunk and bilateral knees max assist of 2. PT Typing Section Chief Goals Intermediate Goals PT Typing Section Chief Goals Time Frame: Jan 08, 2023 Roll Left & Right (QC): 4 Sit to Lying (QC): 4 Lying-Sitting on Side/Bed(QC): 4 Sit to Stand (QC): 3 Chair/Lwc-vk-Iqxek Xfer(QC): 3 Does the Patient Walk: Yes Walk 10 feet (QC): 3 PT Plan Treatment/Plan Treatment Plan: Continue Plan of Care Treatment Plan: Bed Mobility, Concurrent Therapy, Education, Functional Activity Christelle, Functional Strength, Gait, Safety, Therapeutic Exercise, Transfers Treatment Duration: Jan 08, 2023 Frequency: 5 times per week Estimated Hrs Per Day: .25 hour per day Patient and/or Family Agrees t: Yes Time Time In: 855 Time Out: 910 DATE: Jan 03, 2023 Total Billed Treatment Time: 15 Total Billed Treatment 1 visit FA 15 min ALVIN CASIANO PT Jan 03, 2023 09:57
--- NOTE | 2023-01-03 10:07 | Occupational Therapy Eval ---
OT Evaluation-General/PLF Medical Diagnosis Admission Date Dec 31, 2022 at 23:05 Medical Diagnosis: delirium, weakness, dehydration Onset Date: Dec 31, 2022 Therapy Diagnosis Therapy Diagnosis: weakness Precautions Precautions/Isolations: Standard Precautions Weight Bear Status Weight Bearing Restriction: Full Weight Bearing WBS (Ord/Comment): sling under patient, patient is confused Referral Physician: Kori Referral Reason: Evaluation/Treatment Medical History Pertinent Medical History: COPD, DM, Hypothroidism Reviewed History: Yes Social History Home: Multilevel Current Living Status: Alone Entry Into Home: Stairs With Railing Steps Into Home: 4 Steps Inside Home: 10 Patient is inconsistent in hours he has for caregivers ADL-Prior Level of Function SCALE: Activities may be completed with or without assistive devices. 2-Hnesfbquxp-emxzivx completes the activity by him/herself with no assistance from a helper. 5-Set-up or Clean-up Assistance-helper sets up or cleans up; patient completes activity. [place] assists only prior to or following the activity. 4-Supervision or Touching Assistance-helper provides verbal cues and/or touching/steadying and/or contact guard assistance as patient completes activity. Assistance may be provided throughout the activity or intermittently. 3-Partial/Moderate Assistance-helper does LESS THAN HALF the effort. [place] lifts, holds or supports trunk or limbs, but provides less than half the effort. 2-Substantial/Maximal Assistance-helper does MORE THAN HALF the effort. [place] lifts or holds trunk or limbs and provides more than half the effort. 0-Qmhtgrdaj-kbyqxc does ALL the effort. Patient does none of the effort to compl ete the activity. Or, the assistance of 2 or more helpers is required for the patient to complete the activity. If activity was not attempted, code reason: 7-Patient Refused. 9-Not Applicable-not attempted and the patient did not perform the activity before the current illness, exacerbation or injury. 10-Not Attempted due to Environmental Limitations-(lack of equipment, weather restraints, etc.). 88-Not Attempted due to Medical Conditions or Safety Concerns. Self Care: Needed Some Help Functional Cognition: Needed Some Help Drive Self: No OT Current Status Subjective Agreeable to participate, confused w/ events and history timelines. Mental Status/Objective Patient Orientation: Person, Confused Attachments: Nichole Catheter, IV Current Glasses/Contacts: Yes Upper Extremity ROM Observed WFLs, does not fellow instruction for full assessment Upper Extremity Coordination impaired Upper Extremity Sensation impaired Upper Extremity Strength Observed WFLs, does not fellow instruction for full assessment, unable to perform Bed mobility w/o max-dependent care ADL-Treatment Eating (QC): 4 (special diet instruction) Oral Hygiene (QC): 4 Shower/Bathe Self (QC): 7 Upper Body Dressing (QC): 7 Lower Body Dressing (QC): 1 On/Off Footwear (QC): 1 Toileting Hygiene (QC): 1 Education OT Patient Education: Correct positioning, Modified ADL techniques, Progress toward Goal/Update tx plan, Purpose of tx/functional activities, Reviewed preca utions, Rehab process, Safety issues, Transfer techniques, Use of adapted equipment Teaching Recipient: Patient Teaching Methods: Demonstration, Discussion Response to Teaching: Unable to Comprehend OT Pediatric Oncology Nurse Goals Pediatric Oncology Nurse Goals Eating (QC): 4 Oral Hygiene (QC): 4 Toileting Hygiene (QC): 4 Shower/Bathe Self (QC): 3 Upper Body Dressing (QC): 4 Lower Body Dressing (QC): 3 On/Off Footwear (QC): 3 1=Demonstrate adherence to instructed precautions during ADL tasks. 2=Patient will verbalize/demonstrate understanding of assistive devices/modifications for ADL. 3=Patient will improve strength/tolerance for activity to enable patient to perform ADL's. OT Education/Plan Problem List/Assessment Assessment: Decreased Activ Tolerance, Decreased Safety Aware, Decreased UE Strength, Dependent Transfers, Impaired Bed Mobility, Impaired Cognition, Impaired Coordination, Impaired Funct Balance, Impaired Self-Care Skills Discharge Recommendations Plan/Recommendations: Continue POC Therapy Discharge Recommendati: Post Acute OT Treatment Plan/Plan of Care Treatment,Training & Education: Yes Patient would benefit from OT for education, treatment and training to promote independence in ADL's, mobility, safety and/or upper extremity function for ADL's. Plan of Care: ADL Retraining, Functional Mobility, Group Exercise/Act as Ind, UE Funct Exercise/Act, UE Neuromus Re-Ed/Coord Treatment Duration: Jan 07, 2023 Frequency: 3 times per week (3-5 times per week) Estimated Hrs Per Day: .25 hour per day Rehab Potential: Fair Time Start Time: 08:56 Stop Time: 09:11 DATE: Jan 03, 2023 Total Time Billed (hr/min): 15 Billed Treatment Time EVM 15 min HAILE MONROY OT Jan 03, 2023 10:06
[2023-01-03] MEDS ORDERED: FURO20TA4 PO (11:15)
[2023-01-03] MEDS ORDERED: CETI10TA17 PO (11:18)
[2023-01-03] MEDS ORDERED: FLUT1DIS26 IH (11:18)
[2023-01-03 11:27] VITALS: BP 130/67
--- NOTE | 2023-01-03 15:48 | Progress Note - Hospitalist ---
Subjective HPI/CC On Admission Date Seen by Provider: Jan 03, 2023 William Flynn is an 82 year old male with PMH HTN, T2DM, HLD, AFib, CHF, pacemaker, BPH, obesity, who presented with weakness. He had reportedly not been out of bed for a couple days. He reportedly had urine on his clothing. He says he is normally able to walk, usually with a walker, but he can get around without any assistive device. He is currently unable to stand. He reports a right sided headache. he denies vision changes. He denies speech changes. He denies chest pain. He denies shortness of breath. He denies abdominal pain, nausea, vomiting, diarrhea. He denies dysuria. Subjective/Events-last exam Pt reports having a headache. Just received pain medicine for it though. No other complaints. Discussed plan for MRI Objective Exam Vital Signs Vital Signs Date Time Temp Pulse Resp B/P (MAP) Pulse Ox O2 Delivery O2 Flow Rate FiO2 01/03/23 13:01 78 01/03/23 11:27 36.7 16 130/67 (88) 94 Room Air 01/03/23 03:29 0.00 0.00 Capillary Refill : Less Than 3 Seconds General Appearance: No Apparent Distress Respiratory: Lungs Clear Cardiovascular: Regular Rate, Rhythm, No Murmur Neurologic/Psychiatric: Alert, Oriented x3 (but repetitive) Results/Procedures Lab Laboratory Tests 01/03/23 04:42 Patient resulted labs reviewed. Imaging: Reviewed Imaging Report Assessment/Plan Assessment and Plan Assess & Plan/Chief Complaint Weakness Stroke like symptoms Debility Confusion CT head without acute abnormalities CT spine without cause for weakness Confusion resolved Aspirin Ezetimibe MRI brain today Carotid ultrasound pending Echo with negative bubble study PT/OT IRF eval Chest pain Elevated BNP Chronic HFpEF Chest pain resoved Troponin negative BNP elevated Echo with EF 70-75% Hold diuretics Lactic acidosis Hold diuretics HTN HLD AFib Pacemaker BPH Obesity Continue home meds as able AMNA FLOR MD Jan 03, 2023 15:48
[2023-01-03 16:13] VITALS: BP 114/60
[2023-01-03] MEDS: TAMSULOSIN 0.4 MG (FLOMAX) CAP PO SCH (17:00)
--- NOTE | 2023-01-03 17:11 | Diagnostic Imaging Report ---
PROCEDURE: US carotid duplex, bilateral. TECHNIQUE: Multiple real-time grayscale images were obtained over the carotid arteries in various projections, bilaterally. Additional spectral analysis and color Doppler duplex images were also obtained. INDICATION: Acute neurologic deficit. Grayscale images show some atherosclerotic plaque at both carotid bifurcations. There is no alteration of the waveforms or velocities. Vertebral arteries are both patent with antegrade flow. IMPRESSION: Mild atherosclerotic plaque at both carotid bifurcations. There is no hemodynamically significant stenosis. Parameters based on the consensus panel [employer]-Scale and Doppler ultrasound criteria published December 2002, Radiology, Volume 229. DOPPLER (peak systolic velocity M/S Right Left CCA .87 .81 ICA Proximal .85 1.1 ICA Mid .86 .77 ICA Distal UNABLE TO OBTAIN-HIGH BIFURCATION .77 RATIO .97 1.35 ECA 1.8 1.2 VERT .48 .44 Dictated by: Dictated on workstation # [id number]
[2023-01-03 20:00] VITALS: BP 145/64
[2023-01-03] MEDS: MELATONIN 3 MG TABLET PO PRN (21:33)
[2023-01-04] VITALS (7 sets, daily range): BP systolic 115–141; BP diastolic 59–70
[2023-01-04 05:41] LABS: BASOPHILS % (AUTO) 0 % (0-10); EOSINOPHILS # (AUTO) 0.2 10^3/uL (0.0-0.3); EOSINOPHILS % (AUTO) 3 % (0-10); HEMATOCRIT 38 % (40-54); HEMOGLOBIN 12.8 g/dL (13.3-17.7); LYMPHOCYTES # (AUTO) 0.8 10^3/uL (1.0-4.0); LYMPHOCYTES % (AUTO) 14 % (12-44); MEAN CORPUSCULAR HEMOGLOBIN 32 pg (25-34); MEAN CORPUSCULAR HGB CONC 33 g/dL (32-36); MEAN CORPUSCULAR VOLUME 96 fL (80-99); MEAN PLATELET VOLUME 9.2 fL (9.0-12.2); MONOCYTES # (AUTO) 0.7 10^3/uL (0.0-1.0); MONOCYTES % (AUTO) 11 % (0-12); NEUTROPHILS # (AUTO) 4.4 10^3/uL (1.8-7.8); NEUTROPHILS % (AUTO) 73 % (42-75); PLATELET COUNT 222 10^3/uL (130-400); WHITE BLOOD COUNT 6.1 10^3/uL (4.3-11.0)
[2023-01-04 06:07] LABS: CALCIUM 8.8 MG/DL (8.5-10.1); CREATININE SERUM 0.94 MG/DL (0.60-1.30); MAGNESIUM 2.2 MG/DL (1.6-2.4); POTASSIUM 4.2 MMOL/L (3.6-5.0)
[2023-01-04] MEDS: POTASSIUM BICARB 20 MEQ effervescent TABLET PO SCH (06:43)
[2023-01-04] MEDS: POTASSIUM CL 10MEQ/50ML IVPB 50 ML IV SCH (06:43)
[2023-01-04] MEDS: inSUlin ASPART 1 UNIT/0.01 ML (PER UNIT) SC SCH ×4 (06:44→20:14)
[2023-01-04] MEDS: POTASSIUM CHLORIDE 20 MEQ TABLET PO SCH (06:44)
[2023-01-04] MEDS: MAGNESIUM 1 GM/100 ML IVPB 100 ML IV SCH (06:44)
[2023-01-04] MEDS: PRIMIDONE 250MG TABLET PO SCH (06:50)
[2023-01-04] MEDS: LEVOTHYROXINE 75 MCG TABLET PO SCH (06:50)
[2023-01-04] MEDS: APIXABAN 5 MG TABLET PO SCH ×2 (09:02→20:13)
[2023-01-04] MEDS: ASPIRIN enteric coated 81MG TABLET PO SCH (09:02)
[2023-01-04] MEDS: DOCUSATE SODIUM 100 MG CAPSULE PO SCH ×2 (09:03→20:13)
[2023-01-04] MEDS: FINASTERIDE 5 MG TABLET PO SCH (09:24)
--- NOTE | 2023-01-04 10:52 | Progress Note - Hospitalist ---
Subjective HPI/CC On Admission Date Seen by Provider: Jan 04, 2023 William Flynn is an 82 year old male with PMH HTN, T2DM, HLD, AFib, CHF, pacemaker, BPH, obesity, who presented with weakness. He had reportedly not been out of bed for a couple days. He reportedly had urine on his clothing. He says he is normally able to walk, usually with a walker, but he can get around without any assistive device. He is currently unable to stand. He reports a right sided headache. he denies vision changes. He denies speech changes. He denies chest pain. He denies shortness of breath. He denies abdominal pain, nausea, vomiting, diarrhea. He denies dysuria. Subjective/Events-last exam Pt reports doing better today. Still has a headache but not as bad. Planning for MRI today. Objective Exam Vital Signs Vital Signs Date Time Temp Pulse Resp B/P (MAP) Pulse Ox O2 Delivery O2 Flow Rate FiO2 01/04/23 08:15 65 01/04/23 08:00 Room Air 01/04/23 07:17 35.8 16 127/70 (89) 94 01/03/23 03:29 0.00 0.00 Capillary Refill : Less Than 3 Seconds General Appearance: No Apparent Distress, Chronically ill Cardiovascular: Regular Rate, Rhythm, No Murmur Gastrointestinal: Normal Bowel Sounds, Soft Neurologic/Psychiatric: Alert, Oriented x3 Results/Procedures Lab Laboratory Tests 01/04/23 05:15 Patient resulted labs reviewed. Imaging: Reviewed Imaging Report Assessment/Plan Assessment and Plan Assess & Plan/Chief Complaint Weakness Stroke like symptoms Debility Confusion CT head without acute abnormalities CT spine without cause for weakness Aspirin Ezetimibe MRI brain today- was unable to get yesterday Carotid ultrasound mild disease noted Echo with negative bubble study PT/OT IRF eval Chest pain Elevated BNP Chronic HFpEF Chest pain resoved Troponin negative BNP elevated Echo with EF 70-75% Hold diuretics Lactic acidosis Hold diuretics HTN HLD AFib Pacemaker BPH Obesity Continue home meds as able AMNA FLOR MD Jan 04, 2023 10:51
--- NOTE | 2023-01-04 11:39 | Physical Therapy Daily Note ---
PT Daily Note-Current Subjective Patient more cooperative on this date. Agrees to therapy. Pain Section J - Health Conditions 1. Rarely or not at all 2. Occasionally 3. Frequently 4. Almost constantly 8. Unable to answer Pain Effect on Sleep: 2 Pain Interference with Therapy: 2 Pain Interference w/Day-to-Day: 2 Transfers SCALE: Activities may be completed with or without assistive devices. 0-Xnjnieajux-menvqcw completes the activity by him/herself with no assistance from a helper. 5-Set-up or Clean-up Assistance-helper sets up or cleans up; patient completes activity. [place] assists only prior to or following the activity. 4-Supervision or Touching Assistance-helper provides verbal cues and/or touching/steadying and/or contact guard assistance as patient completes activity. Assistance may be provided throughout the activity or intermittently. 3-Partial/Moderate Assistance-helper does LESS THAN HALF the effort. [place] lifts, holds or supports trunk or limbs, but provides less than half the effort. 2-Substantial/Maximal Assistance-helper does MORE THAN HALF the effort. [place] lifts or holds trunk or limbs and provides more than half the effort. 0-Jfhhlofvi-bbvmus does ALL the effort. Patient does none of the effort to com plete the activity. Or, the assistance of 2 or more helpers is required for the patient to complete the activity. If activity was not attempted, code reason: 7-Patient Refused. 9-Not Applicable-not attempted and the patient did not perform the activity before the current illness, exacerbation or injury. 10-Not Attempted due to Environmental Limitations-(lack of equipment, weather restraints, etc.). 88-Not Attempted due to Medical Conditions or Safety Concerns. Lying to Sitting/Side of Bed(Q: 3 Sit to Stand (QC): 3 Chair/Zkc-ob-Uphbi Xfer(QC): 3 mod assist with all mobility on this date. Weight Bearing Right Lower Extremity: Right Full Weight Bearing Left Lower Extremity: Left Full Weight Bearing Gait Training Distance: 5 steps Gait Assistive Device: FWW shuffle gait sequence Exercises Seated Therapy Exercises: Long arc quads Seated Reps: 12 Assessment Patient up in recliner with needs met. Patient much improved on this date. Continue to increase activity. Patient is mod assist with all mobility on this date. PT Government Program Manager Goals Government Program Manager Goals PT [facility]pc Goals Time Frame: Jan 08, 2023 Roll Left & Right (QC): 4 Sit to Lying (QC): 4 Lying-Sitting on Side/Bed(QC): 4 Sit to Stand (QC): 3 Chair/Nxk-zo-Vtgex Xfer(QC): 3 Does the Patient Walk: Yes Walk 10 feet (QC): 3 PT Plan Treatment/Plan Treatment Plan: Continue Plan of Care Treatment Plan: Bed Mobility, Concurrent Therapy, Education, Functional Activity Christelle, Functional Strength, Gait, Safety, Therapeutic Exercise, Transfers Treatment Duration: Jan 08, 2023 Frequency: 5 times per week Estimated Hrs Per Day: .25 hour per day Patient and/or Family Agrees t: Yes Time Time In: 1051 Time Out: 1102 DATE: Jan 04, 2023 Total Billed Treatment Time: 11 Total Billed Treatment 1 visit FA 11 min ALVIN CASIANO PT Jan 04, 2023 11:39
[2023-01-04] MEDS: oxyCODONE IMMEDIATE RELEASE 5 MG TABLET PO PRN ×2 (12:30→19:05)
--- NOTE | 2023-01-04 13:00 | Occupational Ther Daily Note ---
OT Current Status-Daily Note Subjective Required extra time to process request and perform mobility. Mental Status/Objective Patient Orientation: Person, Place, Situation Attachments: Nichole Catheter ADL-Treatment Fumbles with socks. OT dons socks while patient sustains sitting balance EOB. Patient required extensive verbal instruction to position self EOB for ADLS and transfers. Therapy Code Descriptions/Definitions Functional [place] Measure: 0=Not Assessed/NA 4=Minimal Assistance 1=Total Assistance 5=Supervision or Setup 2=Maximal Assistance 6=Modified [place] 3=Moderate Assistance 7=Complete IndependenceSCALE: Activities may be completed with or without assistive devices. 4-Xdqadfdjqx-njfayfq completes the activity by him/herself with no assistance from a helper. 5-Set-up or Clean-up Assistance-helper sets up or cleans up; patient completes activity. [place] assists only prior to or following the activity. 4-Supervision or Touching Assistance-helper provides verbal cues and/or touching/steadying and/or contact guard assistance as patient completes activity. Assistance may be provided throughout the activity or intermittently. 3-Partial/Moderate Assistance-helper does LESS THAN HALF the effort. [place] lifts, holds or supports trunk or limbs, but provides less than half the effort. 2-Substantial/Maximal Assistance-helper does MORE THAN HALF the effort. [place] lifts or holds trunk or limbs and provides more than half the effort. 3-Nvxzoybaa-tbjock does ALL the effort. Patient does none of the effort to complete the activity. Or, the assistance of 2 or more helpers is required for the patient to complete the activity. If activity was not attempted, code reason: 7-Patient Refused. 9-Not Applicable-not attempted and the patient did not perform the activity before the current illness, exacerbation or injury. 10-Not Attempted due to Environmental Limitations-(lack of equipment, weather restraints, etc.). 88-Not Attempted due to Medical Conditions or Safety Concerns. Eating (QC): 5 Oral Hygiene (QC): 4 Lower Body Dressing (QC): 1 On/Off Footwear: 1 Education OT Patient Education: Correct positioning, Modified ADL techniques, Progress toward Goal/Update tx plan, Purpose of tx/functional activities, Reviewed precautions, Rehab process, Safety issues, Transfer techniques, Use of adapted equipment Teaching Recipient: Patient Teaching Methods: Demonstration, Discussion Response to Teaching: Unable to Comprehend, Reinforcement Needed OT Shelter Goals Hyperion Analyst Goals Eating (QC): 4 Oral Hygiene (QC): 4 Toileting Hygiene (QC): 4 Shower/Bathe Self (QC): 3 Upper Body Dressing (QC): 4 Lower Body Dressing (QC): 3 On/Off Footwear (QC): 3 1=Demonstrate adherence to instructed precautions during ADL tasks. 2=Patient will verbalize/demonstrate understanding of assistive devices/modifications for ADL. 3=Patient will improve strength/tolerance for activity to enable patient to perform ADL's. OT Education/Plan Problem List/Assessment Assessment: Decreased Activ Tolerance, Decreased Safety Aware, Decreased UE Strength, Dependent Transfers, Impaired Cognition, Impaired Coordination, Impaired Funct Balance, Impaired Self-Care Skills Discharge Recommendations Plan/Recommendations: Continue POC Treatment Plan/Plan of Care Treatment,Training & Education: Yes Patient would benefit from OT for education, treatment and training to promote independence in ADL's, mobility, safety and/or upper extremity function for ADL's. Plan of Care: ADL Retraining, Functional Mobility, Group Exercise/Act as Ind, UE Funct Exercise/Act, UE Neuromus Re-Ed/Coord Treatment Duration: Jan 07, 2023 Frequency: 3 times per week (3-5 times per week) Estimated Hrs Per Day: .25 hour per day Rehab Potential: Fair Time Start Time: 10:54 Stop Time: 11:05 DATE: Jan 04, 2023 Total Time Billed (hr/min): 16 Billed Treatment Time ADL 16 HAILE MONROY OT Jan 04, 2023 13:00
[2023-01-04] MEDS: ACETAMINOPHEN 325 MG TABLET PO PRN ×2 (16:19→23:33)
[2023-01-04] MEDS: TAMSULOSIN 0.4 MG (FLOMAX) CAP PO SCH (18:01)
[2023-01-05] MEDS: IBUPROFEN 600 MG TABLET PO PRN (01:36)
[2023-01-05] MEDS: MELATONIN 3 MG TABLET PO PRN ×2 (01:37→20:06)
[2023-01-05 04:20] VITALS: BP 136/70
[2023-01-05 05:40] LABS: BASOPHILS % (AUTO) 0 % (0-10); EOSINOPHILS # (AUTO) 0.2 10^3/uL (0.0-0.3); EOSINOPHILS % (AUTO) 3 % (0-10); HEMATOCRIT 37 % (40-54); HEMOGLOBIN 12.1 g/dL (13.3-17.7); LYMPHOCYTES # (AUTO) 1.2 10^3/uL (1.0-4.0); LYMPHOCYTES % (AUTO) 18 % (12-44); MEAN CORPUSCULAR HEMOGLOBIN 31 pg (25-34); MEAN CORPUSCULAR HGB CONC 32 g/dL (32-36); MEAN CORPUSCULAR VOLUME 96 fL (80-99); MEAN PLATELET VOLUME 9.2 fL (9.0-12.2); MONOCYTES # (AUTO) 0.7 10^3/uL (0.0-1.0); MONOCYTES % (AUTO) 10 % (0-12); NEUTROPHILS # (AUTO) 4.5 10^3/uL (1.8-7.8); NEUTROPHILS % (AUTO) 68 % (42-75); PLATELET COUNT 235 10^3/uL (130-400); WHITE BLOOD COUNT 6.6 10^3/uL (4.3-11.0)
[2023-01-05 05:51] LABS: POTASSIUM 4.4 MMOL/L (3.6-5.0)
[2023-01-05 05:53] LABS: CALCIUM 8.4 MG/DL (8.5-10.1)
[2023-01-05 05:57] LABS: CREATININE SERUM 1.04 MG/DL (0.60-1.30)
[2023-01-05 05:59] LABS: MAGNESIUM 2.1 MG/DL (1.6-2.4)
[2023-01-05] MEDS: inSUlin ASPART 1 UNIT/0.01 ML (PER UNIT) SC SCH ×4 (06:03→21:46)
[2023-01-05] MEDS: LEVOTHYROXINE 75 MCG TABLET PO SCH (06:03)
[2023-01-05] MEDS: PRIMIDONE 250MG TABLET PO SCH (06:03)
[2023-01-05] MEDS: POTASSIUM CL 10MEQ/50ML IVPB 50 ML IV SCH (06:08)
[2023-01-05] MEDS: POTASSIUM BICARB 20 MEQ effervescent TABLET PO SCH (06:09)
[2023-01-05] MEDS: MAGNESIUM 1 GM/100 ML IVPB 100 ML IV SCH (06:09)
[2023-01-05] MEDS: POTASSIUM CHLORIDE 20 MEQ TABLET PO SCH (06:09)
[2023-01-05 07:00] VITALS: BP 125/77
[2023-01-05] MEDS: DOCUSATE SODIUM 100 MG CAPSULE PO SCH ×2 (08:56→20:06)
[2023-01-05] MEDS: APIXABAN 5 MG TABLET PO SCH ×2 (08:56→20:06)
[2023-01-05] MEDS: ASPIRIN enteric coated 81MG TABLET PO SCH (08:56)
[2023-01-05] MEDS: FINASTERIDE 5 MG TABLET PO SCH (08:56)
[2023-01-05] MEDS: oxyCODONE IMMEDIATE RELEASE 5 MG TABLET PO PRN ×3 (08:56→23:29)
--- NOTE | 2023-01-05 09:26 | Physical Therapy Progress Note ---
Therapy Progress Note Attempted numerous times to wake patient up for PT. He awoke only to tell this PT to "Leave me alone". Attempted to educate patient on benefits of activity to promote healing, however patient refused to stay awake. Will attempt again tomorrow and progress per patient tolerance. MARIA DE JESUS GILMORE PT Jan 05, 2023 09:26
--- NOTE | 2023-01-05 10:28 | Progress Note - Hospitalist ---
Subjective HPI/CC On Admission Date Seen by Provider: Jan 05, 2023 William Flynn is an 82 year old male with PMH HTN, T2DM, HLD, AFib, CHF, pacemaker, BPH, obesity, who presented with weakness. He had reportedly not been out of bed for a couple days. He reportedly had urine on his clothing. He says he is normally able to walk, usually with a walker, but he can get around without any assistive device. He is currently unable to stand. He reports a right sided headache. he denies vision changes. He denies speech changes. He denies chest pain. He denies shortness of breath. He denies abdominal pain, nausea, vomiting, diarrhea. He denies dysuria. Subjective/Events-last exam Pt reports doing better today. Still h aving a headache but no new complaints. Discussed plan to find out the kind of pacemaker he has and see if we can proc eed with MRI. Updated his nephew Niall as well. Discussed potential DC plan for IRF vs SNF as well. Objective Exam Vital Signs Vital Signs Date Time Temp Pulse Resp B/P (MAP) Pulse Ox O2 Delivery O2 Flow Rate FiO2 01/05/23 07:00 36.4 56 16 125/77 (93) 95 Room Air 01/03/23 03:29 0.00 0.00 Capillary Refill : Less Than 3 Seconds General Appearance: No Apparent Distress Respiratory: Lungs Clear, No Respiratory Distress Cardiovascular: Regular Rate, Rhythm, No Murmur Gastrointestinal: Normal Bowel Sounds, Soft Neurologic/Psychiatric: Alert, Oriented x3 (mentation much better) Results/Procedures Lab Laboratory Tests 01/05/23 04:56 Patient resulted labs reviewed. Imaging: Reviewed Imaging Report Assessment/Plan Assessment and Plan Assess & Plan/Chief Complaint Weakness Stroke like symptoms Debility Confusion CT head without acute abnormalities CT spine without cause for weakness Aspirin Ezetimibe MRI brain today if able to get ahold of [employer] rep- was unable to the last two days Carotid ultrasound mild disease noted Echo with negative bubble study PT/OT IRF eval, had decent improvement from Tuesday to yesterday- await today's PT notes, if denied by IRF may need SNF Chest pain Elevated BNP Chronic HFpEF Chest pain resoved Troponin negative BNP elevated Echo with EF 70-75% Hold diuretics Lactic acidosis Hold diuretics HTN HLD AFib Pacemaker BPH Obesity Continue home meds as able AMNA FLOR MD Jan 05, 2023 10:28
--- NOTE | 2023-01-05 10:34 | Occ Therapy Progress Note ---
[place] [id number], patient request OT return at 0930. OT returned at 1000 and patient again refused. Education for roles of therapy and benefits provided to patient , Patient closed his eyes an OT exited room. OT to attempt next available opportunity HAILE MONROY OT Jan 05, 2023 10:34
[2023-01-05 11:40] VITALS: BP 122/76
--- NOTE | 2023-01-05 14:23 | Diagnostic Imaging Report ---
CHEST 1 VIEW, AP/PA ONLY Indication: Pre-MRI workup for pacemaker clear Comparison: 12/31/2022 Findings: Left pectoral dual chamber pacemaker has intact leads and there are no abandoned leads. A small amount of atelectasis has developed the right midlung. No pleural effusion or pneumothorax. Heart is normal in size. Impression: 1. Pacemaker leads are intact and not abandoned. Okay to proceed with MRI. Dictated by: Dictated on workstation # [id number]
[2023-01-05 15:35] VITALS: BP 136/86
[2023-01-05] MEDS: ACETAMINOPHEN 325 MG TABLET PO PRN (15:36)
--- NOTE | 2023-01-05 16:18 | Diagnostic Imaging Report ---
PROCEDURE: MR imaging of the brain without contrast. TECHNIQUE: Multiplanar, multisequence MR imaging of the brain was performed without contrast. INDICATION: Weakness, pacemaker placement. COMPARISON: CT of the head on 12/31/2022. FINDINGS: Patient motion artifact degrades image quality. No acute infarct. No acute or chronic hemorrhage. Scattered T2/FLAIR hyperintense signal within the periventricular and subcortical white matter. Mild general prominence of ventricles and cortical sulci. No midline shift or mass effect. No intracranial mass or fluid collection. Mild mucosal thickening within the right maxillary sinus. The expected flow voids are maintained. The paranasal sinuses and mastoids are clear. The globes and orbits are normal. Right posterior scalp lipoma is noted. IMPRESSION: No acute infarct, hemorrhage, or hydrocephalus. Mild chronic small vessel ischemic disease. Mild global volume loss. Dictated by: Dictated on workstation # [id number]
[2023-01-05] MEDS: TAMSULOSIN 0.4 MG (FLOMAX) CAP PO SCH (17:44)
[2023-01-05 19:03] VITALS: BP 121/68
[2023-01-05 23:45] VITALS: BP 101/55
[2023-01-06 03:16] VITALS: BP 102/52
[2023-01-06] MEDS: ACETAMINOPHEN 325 MG TABLET PO PRN ×3 (04:04→17:17)
[2023-01-06] MEDS: inSUlin ASPART 1 UNIT/0.01 ML (PER UNIT) SC SCH ×4 (05:21→21:32)
[2023-01-06 05:38] LABS: BASOPHILS % (AUTO) 1 % (0-10); EOSINOPHILS # (AUTO) 0.3 10^3/uL (0.0-0.3); EOSINOPHILS % (AUTO) 4 % (0-10); HEMATOCRIT 36 % (40-54); HEMOGLOBIN 12.1 g/dL (13.3-17.7); LYMPHOCYTES # (AUTO) 1.1 10^3/uL (1.0-4.0); LYMPHOCYTES % (AUTO) 17 % (12-44); MEAN CORPUSCULAR HEMOGLOBIN 32 pg (25-34); MEAN CORPUSCULAR HGB CONC 34 g/dL (32-36); MEAN CORPUSCULAR VOLUME 95 fL (80-99); MONOCYTES # (AUTO) 0.6 10^3/uL (0.0-1.0); MONOCYTES % (AUTO) 9 % (0-12); NEUTROPHILS # (AUTO) 4.4 10^3/uL (1.8-7.8); NEUTROPHILS % (AUTO) 69 % (42-75); PLATELET COUNT 225 10^3/uL (130-400); WHITE BLOOD COUNT 6.4 10^3/uL (4.3-11.0)
[2023-01-06 05:55] LABS: POTASSIUM 4.2 MMOL/L (3.6-5.0)
[2023-01-06 05:56] LABS: CALCIUM 8.3 MG/DL (8.5-10.1)
[2023-01-06 06:00] LABS: CREATININE SERUM 0.87 MG/DL (0.60-1.30)
[2023-01-06 06:02] LABS: MAGNESIUM 1.9 MG/DL (1.6-2.4)
[2023-01-06] MEDS: LEVOTHYROXINE 75 MCG TABLET PO SCH (06:09)
[2023-01-06] MEDS: PRIMIDONE 250MG TABLET PO SCH (06:09)
[2023-01-06] MEDS: MAGNESIUM 1 GM/100 ML IVPB 100 ML IV SCH (06:10)
[2023-01-06] MEDS: POTASSIUM CL 10MEQ/50ML IVPB 50 ML IV SCH (06:10)
[2023-01-06] MEDS: POTASSIUM BICARB 20 MEQ effervescent TABLET PO SCH (06:11)
[2023-01-06] MEDS: POTASSIUM CHLORIDE 20 MEQ TABLET PO SCH (06:11)
[2023-01-06 07:45] VITALS: BP 130/74
[2023-01-06] MEDS: DOCUSATE SODIUM 100 MG CAPSULE PO SCH ×2 (08:35→20:21)
[2023-01-06] MEDS: FINASTERIDE 5 MG TABLET PO SCH (08:36)
[2023-01-06] MEDS: ASPIRIN enteric coated 81MG TABLET PO SCH (08:36)
[2023-01-06] MEDS: APIXABAN 5 MG TABLET PO SCH ×2 (08:36→20:22)
--- NOTE | 2023-01-06 10:31 | Physical Therapy Daily Note ---
PT Daily Note-Current Subjective Patient agrees to therapy. Pain Section J - Health Conditions 1. Rarely or not at all 2. Occasionally 3. Frequently 4. Almost constantly 8. Unable to answer Pain Effect on Sleep: 2 Pain Interference with Therapy: 2 Pain Interference w/Day-to-Day: 2 Transfers SCALE: Activities may be completed with or without assistive devices. 6-Rfekrszesu-saljjsj completes the activity by him/herself with no assistance from a helper. 5-Set-up or Clean-up Assistance-helper sets up or cleans up; patient completes activity. [place] assists only prior to or following the activity. 4-Supervision or Touching Assistance-helper provides verbal cues and/or touching/steadying and/or contact guard assistance as patient completes activity. Assistance may be provided throughout the activity or intermittently. 3-Partial/Moderate Assistance-helper does LESS THAN HALF the effort. [place] lifts, holds or supports trunk or limbs, but provides less than half the effort. 2-Substantial/Maximal Assistance-helper does MORE THAN HALF the effort. [place] lifts or holds trunk or limbs and provides more than half the effort. 3-Kgruvxeqa-mnledc does ALL the effort. Patient does none of the effort to complete the activity. Or, the assistance of 2 or more helpers is required for the patient to complete the activity. If activity was not attempted, code reason: 7-Patient Refused. 9-Not Applicable-not attempted and the patient did not perform the activity before the current illness, exacerbation or injury. 10-Not Attempted due to Environmental Limitations-(lack of equipment, weather restraints, etc.). 88-Not Attempted due to Medical Conditions or Safety Concerns. Lying to Sitting/Side of Bed(Q: 6 Sit to Stand (QC): 3 Chair/Kpu-oa-Ndium Xfer(QC): 3 Weight Bearing Right Lower Extremity: Right Full Weight Bearing Left Lower Extremity: Left Full Weight Bearing Gait Training Distance: 30' Walk 10 feet (QC): 2 Gait Assistive Device: FWW very slow, antalgic gait sequence Assessment Patient much improved on this date. Requires time to complete all functional tasks. Patient up in recliner with chair alarm activated and needs met. Increase activity as tolerated by patient. PT Alf Goals Alf Goals PT Insecticide Expert Goals Time Frame: Jan 08, 2023 Roll Left & Right (QC): 4 Sit to Lying (QC): 4 Lying-Sitting on Side/Bed(QC): 4 Sit to Stand (QC): 3 Chair/Naz-dm-Xtybp Xfer(QC): 3 Does the Patient Walk: Yes Walk 10 feet (QC): 3 PT Plan Treatment/Plan Treatment Plan: Continue Plan of Care Treatment Plan: Bed Mobility, Concurrent Therapy, Education, Functional Activity Christelle, Functional Strength, Gait, Safety, Therapeutic Exercise, Transfers Treatment Duration: Jan 08, 2023 Frequency: 5 times per week Estimated Hrs Per Day: .25 hour per day Patient and/or Family Agrees t: Yes Time Time In: 915 Time Out: 930 DATE: Jan 06, 2023 Total Billed Treatment Time: 15 Total Billed Treatment 1 visit GT 15 min ALVIN CASIANO PT Jan 06, 2023 10:31
--- NOTE | 2023-01-06 10:33 | Occupational Ther Daily Note ---
OT Current Status-Daily Note Subjective Agreeable to participate, unaware of day or days in hospital Mental Status/Objective Patient Orientation: Person, Confused ADL-Treatment Therapy Code Descriptions/Definitions Functional [place] Measure: 0=Not Assessed/NA 4=Minimal Assistance 1=Total Assistance 5=Supervision or Setup 2=Maximal Assistance 6=Modified [place] 3=Moderate Assistance 7=Complete IndependenceSCALE: Activities may be completed with or without assistive devices. 3-Stqlmabkca-kqonexq completes the activity by him/herself with no assistance from a helper. 5-Set-up or Clean-up Assistance-helper sets up or cleans up; patient completes activity. [place] assists only prior to or following the activity. 4-Supervision or Touching Assistance-helper provides verbal cues and/or touching/steadying and/or contact guard assistance as patient completes activity. Assistance may be provided throughout the activity or intermittently. 3-Partial/Moderate Assistance-helper does LESS THAN HALF the effort. [place] lifts, holds or supports trunk or limbs, but provides less than half the effort. 2-Substantial/Maximal Assistance-helper does MORE THAN HALF the effort. [place] lifts or holds trunk or limbs and provides more than half the effort. 5-Iztpfnqit-mxqfai does ALL the effort. Patient does none of the effort to complete the activity. Or, the assistance of 2 or more helpers is required for the patient to complete the activity. If activity was not attempted, code reason: 7-Patient Refused. 9-Not Applicable-not attempted and the patient did not perform the activity before the current illness, exacerbation or injury. 10-Not Attempted due to Environmental Limitations-(lack of equipment, weather restraints, etc.). 88-Not Attempted due to Medical Conditions or Safety Concerns. Other Treatment Visual scanning, safety scenarios, navigation and route planning w/ FWW, requires 2 persons for safety. Education OT Patient Education: Home exercise program, Progress toward Goal/Update tx plan, Purpose of tx/functional activities, Reviewed precautions, Rehab process, Safety issues, Transfer techniques, Use of adapted equipment Teaching Recipient: Patient Teaching Methods: Demonstration, Discussion Response to Teaching: Reinforcement Needed OT Slab Miller Operator Goals Slab Miller Operator Goals Eating (QC): 4 Oral Hygiene (QC): 4 Toileting Hygiene (QC): 4 Shower/Bathe Self (QC): 3 Upper Body Dressing (QC): 4 Lower Body Dressing (QC): 3 On/Off Footwear (QC): 3 1=Demonstrate adherence to instructed precautions during ADL tasks. 2=Patient will verbalize/demonstrate understanding of assistive devices/modifications for ADL. 3=Patient will improve strength/tolerance for activity to enable patient to perform ADL's. OT Education/Plan Problem List/Assessment Assessment: Decreased Activ Tolerance, Decreased Safety Aware, Decreased UE Strength, Impaired Cognition, Impaired Coordination, Impaired Funct Balance, Impaired Self-Care Skills Discharge Recommendations Plan/Recommendations: Continue POC Therapy Discharge Recommendati: Post Acute OT Treatment Plan/Plan of Care Treatment,Training & Education: Yes Patient would benefit from OT for education, treatment and training to promote independence in ADL's, mobility, safety and/or upper extremity function for ADL's. Plan of Care: ADL Retraining, Functional Mobility, Group Exercise/Act as Ind, UE Funct Exercise/Act, UE Neuromus Re-Ed/Coord Treatment Duration: Jan 07, 2023 Frequency: 3 times per week (3-5 times per week) Estimated Hrs Per Day: .25 hour per day Agreement: Yes Rehab Potential: Fair Time Start Time: 09:15 Stop Time: 09:30 DATE: Jan 06, 2023 Total Time Billed (hr/min): 15 Billed Treatment Time FA 15 min HAILE MONROY OT Jan 06, 2023 10:33
[2023-01-06 11:33] VITALS: BP 122/77
[2023-01-06] MEDS: oxyCODONE IMMEDIATE RELEASE 5 MG TABLET PO PRN ×2 (12:48→17:18)
--- NOTE | 2023-01-06 14:49 | Progress Note - Hospitalist ---
Subjective HPI/CC On Admission Date Seen by Provider: Jan 06, 2023 William Flynn is an 82 year old male with PMH HTN, T2DM, HLD, AFib, CHF, pacemaker, BPH, obesity, who presented with weakness. He had reportedly not been out of bed for a couple days. He reportedly had urine on his clothing. He says he is normally able to walk, usually with a walker, but he can get around without any assistive device. He is currently unable to stand. He reports a right sided headache. he denies vision changes. He denies speech changes. He denies chest pain. He denies shortness of breath. He denies abdominal pain, nausea, vomiting, diarrhea. He denies dysuria. Subjective/Events-last exam Pt reports doing ok but having ear pain. No other compalints. Objective Exam Vital Signs Vital Signs Date Time Temp Pulse Resp B/P (MAP) Pulse Ox O2 Delivery O2 Flow Rate FiO2 01/06/23 11:33 36.2 52 16 122/77 (92) 96 Room Air 01/06/23 03:16 0.00 0.00 Capillary Refill : Less Than 3 Seconds General Appearance: No Apparent Distress, Chronically ill Respiratory: Lungs Clear, No Respiratory Distress Cardiovascular: Regular Rate, Rhythm, No Murmur Neurologic/Psychiatric: Alert, Oriented x3 Results/Procedures Lab Laboratory Tests 01/06/23 05:28 Patient resulted labs reviewed. Imaging: Reviewed Imaging Report Assessment/Plan Assessment and Plan Assess & Plan/Chief Complaint Weakness Stroke like symptoms Debility Confusion CT head without acute abnormalities CT spine without cause for weakness Aspirin Ezetimibe MRI brain- no evidence of stroke Carotid ultrasound mild disease noted Echo with negative bubble study PT/OT IRF evaluated and accepted for Tuesday Chest pain Elevated BNP Chronic HFpEF Chest pain resoved Troponin negative BNP elevated Echo with EF 70-75% Lactic acidosis, resolved HTN HLD AFib Pacemaker BPH Obesity Continue home meds as able AMNA FLOR MD Jan 06, 2023 14:49
[2023-01-06] MEDS ORDERED: CARBAMIDE PEROXIDE 6.5% EACH EAR PRN (15:00)
[2023-01-06 16:45] VITALS: BP 129/71
[2023-01-06] MEDS: TAMSULOSIN 0.4 MG (FLOMAX) CAP PO SCH (17:06)
[2023-01-06 19:52] VITALS: BP 119/69
[2023-01-06] MEDS: IBUPROFEN 600 MG TABLET PO PRN (20:22)
[2023-01-07 03:31] VITALS: BP 128/78
[2023-01-07] MEDS: LEVOTHYROXINE 75 MCG TABLET PO SCH (05:11)
[2023-01-07] MEDS: inSUlin ASPART 1 UNIT/0.01 ML (PER UNIT) SC SCH ×4 (05:24→20:28)
[2023-01-07 05:59] LABS: BASOPHILS # (AUTO) 0.1 10^3/uL (0.0-0.1); BASOPHILS % (AUTO) 1 % (0-10); EOSINOPHILS # (AUTO) 0.2 10^3/uL (0.0-0.3); EOSINOPHILS % (AUTO) 3 % (0-10); HEMATOCRIT 38 % (40-54); HEMOGLOBIN 12.5 g/dL (13.3-17.7); LYMPHOCYTES # (AUTO) 0.9 10^3/uL (1.0-4.0); LYMPHOCYTES % (AUTO) 11 % (12-44); MEAN CORPUSCULAR HEMOGLOBIN 31 pg (25-34); MEAN CORPUSCULAR HGB CONC 33 g/dL (32-36); MEAN CORPUSCULAR VOLUME 95 fL (80-99); MEAN PLATELET VOLUME 9.5 fL (9.0-12.2); MONOCYTES # (AUTO) 0.6 10^3/uL (0.0-1.0); MONOCYTES % (AUTO) 8 % (0-12); NEUTROPHILS # (AUTO) 5.7 10^3/uL (1.8-7.8); NEUTROPHILS % (AUTO) 76 % (42-75); PLATELET COUNT 250 10^3/uL (130-400); WHITE BLOOD COUNT 7.6 10^3/uL (4.3-11.0)
[2023-01-07 06:08] LABS: POTASSIUM 4.3 MMOL/L (3.6-5.0)
[2023-01-07 06:09] LABS: CALCIUM 8.3 MG/DL (8.5-10.1)
[2023-01-07 06:13] LABS: CREATININE SERUM 0.86 MG/DL (0.60-1.30)
[2023-01-07] MEDS: POTASSIUM CL 10MEQ/50ML IVPB 50 ML IV SCH (06:14)
[2023-01-07] MEDS: POTASSIUM BICARB 20 MEQ effervescent TABLET PO SCH (06:14)
[2023-01-07] MEDS: POTASSIUM CHLORIDE 20 MEQ TABLET PO SCH (06:14)
[2023-01-07 06:15] LABS: MAGNESIUM 1.9 MG/DL (1.6-2.4)
[2023-01-07] MEDS: PRIMIDONE 250MG TABLET PO SCH (06:17)
[2023-01-07] MEDS: ACETAMINOPHEN 325 MG TABLET PO PRN ×2 (06:18→19:49)
[2023-01-07] MEDS: MAGNESIUM 1 GM/100 ML IVPB 100 ML IV SCH (06:19)
[2023-01-07 07:37] VITALS: BP 124/78
--- NOTE | 2023-01-07 08:40 | Progress Note - Hospitalist ---
Subjective HPI/CC On Admission Date Seen by Provider: Jan 07, 2023 William Flynn is an 82 year old male with PMH HTN, T2DM, HLD, AFib, CHF, pacemaker, BPH, obesity, who presented with weakness. He had reportedly not been out of bed for a couple days. He reportedly had urine on his clothing. He says he is normally able to walk, usually with a walker, but he can get around without any assistive device. He is currently unable to stand. He reports a right sided headache. he denies vision changes. He denies speech changes. He denies chest pain. He denies shortness of breath. He denies abdominal pain, nausea, vomiting, diarrhea. He denies dysuria. Subjective/Events-last exam Pt reports doing well. No complaints. Discussed plan for DC to IRF tomorrow. He is agreeable. Objective Exam Vital Signs Vital Signs Date Time Temp Pulse Resp B/P (MAP) Pulse Ox O2 Delivery O2 Flow Rate FiO2 01/07/23 07:37 36.1 67 18 124/78 (93) 93 Room Air 01/07/23 03:31 0.00 0.00 Capillary Refill : Less Than 3 Seconds General Appearance: No Apparent Distress, WD/WN Respiratory: Lungs Clear, No Respiratory Distress Cardiovascular: Regular Rate, Rhythm, No Murmur Neurologic/Psychiatric: Alert, Oriented x3 Results/Procedures Lab Laboratory Tests 01/07/23 05:17 Patient resulted labs reviewed. Imaging: Reviewed Imaging Report Assessment/Plan Assessment and Plan Assess & Plan/Chief Complaint Weakness Debility Confusion- resolved CT head without acute abnormalities CT spine without cause for weakness Aspirin Ezetimibe MRI brain- no evidence of stroke Carotid ultrasound mild disease noted Echo with negative bubble study PT/OT IRF evaluated and accepted for Tuesday Chest pain Elevated BNP Chronic HFpEF Chest pain resoved Troponin negative BNP elevated Echo with EF 70-75% HTN HLD AFib Pacemaker BPH Obesity Continue home meds as able AMNA FLOR MD Jan 07, 2023 08:40
[2023-01-07] MEDS: APIXABAN 5 MG TABLET PO SCH ×2 (08:59→19:46)
[2023-01-07] MEDS: ASPIRIN enteric coated 81MG TABLET PO SCH (08:59)
[2023-01-07] MEDS: FINASTERIDE 5 MG TABLET PO SCH (08:59)
[2023-01-07] MEDS: oxyCODONE IMMEDIATE RELEASE 5 MG TABLET PO PRN ×2 (08:59→18:35)
[2023-01-07] MEDS: DOCUSATE SODIUM 100 MG CAPSULE PO SCH ×2 (08:59→19:46)
--- NOTE | 2023-01-07 10:17 | Physical Therapy Daily Note ---
PT Daily Note-Current Subjective Patient reluctantly agrees to therapy. Pain Section J - Health Conditions 1. Rarely or not at all 2. Occasionally 3. Frequently 4. Almost constantly 8. Unable to answer Pain Effect on Sleep: 2 Pain Interference with Therapy: 2 Pain Interference w/Day-to-Day: 2 Transfers SCALE: Activities may be completed with or without assistive devices. 8-Klneimjevs-bgnihyo completes the activity by him/herself with no assistance from a helper. 5-Set-up or Clean-up Assistance-helper sets up or cleans up; patient completes activity. [place] assists only prior to or following the activity. 4-Supervision or Touching Assistance-helper provides verbal cues and/or touching/steadying and/or contact guard assistance as patient completes activity. Assistance may be provided throughout the activity or intermittently. 3-Partial/Moderate Assistance-helper does LESS THAN HALF the effort. [place] lifts, holds or supports trunk or limbs, but provides less than half the effort. 2-Substantial/Maximal Assistance-helper does MORE THAN HALF the effort. [place] lifts or holds trunk or limbs and provides more than half the effort. 1-Yiiancoqc-rejeiz does ALL the effort. Patient does none of the effort to complete the activity. Or, the assistance of 2 or more helpers is required for the patient to complete the activity. If activity was not attempted, code reason: 7-Patient Refused. 9-Not Applicable-not attempted and the patient did not perform the activity before the current illness, exacerbation or injury. 10-Not Attempted due to Environmental Limitations-(lack of equipment, weather restraints, etc.). 88-Not Attempted due to Medical Conditions or Safety Concerns. Lying to Sitting/Side of Bed(Q: 4 Sit to Stand (QC): 3 Chair/Imr-bf-Ooiuv Xfer(QC): 3 Weight Bearing Right Lower Extremity: Right Full Weight Bearing Left Lower Extremity: Left Full Weight Bearing Gait Training Distance: 50' Walk 10 feet (QC): 3 Walk 50 ft with 2 Turns(QC): 3 Walk 150 ft (QC): 7 Gait Assistive Device: FWW improved gait sequence Exercises Seated Therapy Exercises: Ankle pumps, Long arc quads, Hip flexion Seated Reps: 15 Assessment Patient tolerated treatment well and is up in recliner with chair alarm activated. PT to increase activity as tolerated by patient. Plan dismissal to [facility] tomorrow per report. PT Detention Goals Detention Goals PT Payroll Professional Goals Time Frame: Jan 08, 2023 Roll Left & Right (QC): 4 Sit to Lying (QC): 4 Lying-Sitting on Side/Bed(QC): 4 Sit to Stand (QC): 3 Chair/Plm-qr-Wkpfv Xfer(QC): 3 Does the Patient Walk: Yes Walk 10 feet (QC): 3 PT Plan Treatment/Plan Treatment Plan: Continue Plan of Care Treatment Plan: Bed Mobility, Concurrent Therapy, Education, Functional Activity Christelle, Functional Strength, Gait, Safety, Therapeutic Exercise, Transfers Treatment Duration: Jan 08, 2023 Frequency: 5 times per week Estimated Hrs Per Day: .25 hour per day Patient and/or Family Agrees t: Yes Time Time In: 855 Time Out: 910 DATE: Jan 07, 2023 Total Billed Treatment Time: 15 Total Billed Treatment 1 visit FA 15 min ALVIN CASIANO PT Jan 07, 2023 10:17
--- NOTE | 2023-01-07 10:34 | Occupational Ther Daily Note ---
OT Current Status-Daily Note Subjective Difficulty w/ participation, Patient request therapy another time. Therapist [id number] therapy now Mental Status/Objective Patient Orientation: Person, Confused ADL-Treatment Sitting EOB performs own sock management. declines al oth DL, assistance require d for PT Therapy Code Descriptions/Definitions Functional Reading Measure: 0=Not Assessed/NA 4=Minimal Assistance 1=Total Assistance 5=Supervision or Setup 2=Maximal Assistance 6=Modified Reading 3=Moderate Assistance 7=Complete IndependenceSCALE: Activities may be completed with or without assistive devices. 7-Ysylxeirtv-muiqana completes the activity by him/herself with no assistance from a helper. 5-Set-up or Clean-up Assistance-helper sets up or cleans up; patient completes activity. [place] assists only prior to or following the activity. 4-Supervision or Touching Assistance-helper provides verbal cues and/or touching/steadying and/or contact guard assistance as patient completes activity. Assistance may be provided throughout the activity or intermittently. 3-Partial/Moderate Assistance-helper does LESS THAN HALF the effort. [place] lifts, holds or supports trunk or limbs, but provides less than half the effort. 2-Substantial/Maximal Assistance-helper does MORE THAN HALF the effort. [place] lifts or holds trunk or limbs and provides more than half the effort. 3-Ckereaapt-okwnhh does ALL the effort. Patient does none of the effort to com plete the activity. Or, the assistance of 2 or more helpers is required for the patient to complete the activity. If activity was not attempted, code reason: 7-Patient Refused. 9-Not Applicable-not attempted and the patient did not perform the activity before the current illness, exacerbation or injury. 10-Not Attempted due to Environmental Limitations-(lack of equipment, weather restraints, etc.). 88-Not Attempted due to Medical Conditions or Safety Concerns. Eating (QC): 7 Oral Hygiene (QC): 7 Upper Body Dressing (QC): 3 Lower Body Dressing (QC): 3 On/Off Footwear: 5 Education OT Patient Education: Correct positioning, Modified ADL techniques, Progress toward Goal/Update tx plan, Purpose of tx/functional activities, Safety issues, Transfer techniques Teaching Recipient: Patient, Family OT Hemstitcher Goals Half-Way Goals Eating (QC): 4 Oral Hygiene (QC): 4 Toileting Hygiene (QC): 4 Shower/Bathe Self (QC): 3 Upper Body Dressing (QC): 4 Lower Body Dressing (QC): 3 On/Off Footwear (QC): 3 1=Demonstrate adherence to instructed precautions during ADL tasks. 2=Patient will verbalize/demonstrate understanding of assistive devices/modifications for ADL. 3=Patient will improve strength/tolerance for activity to enable patient to perform ADL's. OT Education/Plan Problem List/Assessment Assessment: Decreased Activ Tolerance, Decreased Safety Aware, Impaired Bed Mobility, Impaired Cognition, Impaired Coordination, Impaired Funct Balance, Impaired Self-Care Skills Discharge Recommendations Plan/Recommendations: Continue POC Treatment Plan/Plan of Care Treatment,Training & Education: Yes Patient would benefit from OT for education, treatment and training to promote independence in ADL's, mobility, safety and/or upper extremity function for ADL's. Plan of Care: ADL Retraining, Functional Mobility, Group Exercise/Act as Ind, UE Funct Exercise/Act, UE Neuromus Re-Ed/Coord Treatment Duration: Jan 07, 2023 Frequency: 3 times per week (3-5 times per week) Estimated Hrs Per Day: .25 hour per day Agreement: Yes Rehab Potential: Fair Required increased amount of time to motivate to move Time Start Time: 08:55 Stop Time: 09:10 DATE: Jan 07, 2023 Total Time Billed (hr/min): 15 Billed Treatment Time ADL 15 min HAILE MONROY OT Jan 07, 2023 10:33
[2023-01-07 11:46] VITALS: BP 116/70
[2023-01-07 16:19] VITALS: BP 114/74
[2023-01-07] MEDS: TAMSULOSIN 0.4 MG (FLOMAX) CAP PO SCH (18:35)
[2023-01-07 20:54] VITALS: BP 128/79
[2023-01-07 23:32] VITALS: BP 119/76
[2023-01-08 03:49] VITALS: BP 110/64
[2023-01-08] MEDS: oxyCODONE IMMEDIATE RELEASE 5 MG TABLET PO PRN ×2 (03:57→10:16)
[2023-01-08 05:32] LABS: BASOPHILS % (AUTO) 1 % (0-10); EOSINOPHILS # (AUTO) 0.2 10^3/uL (0.0-0.3); EOSINOPHILS % (AUTO) 3 % (0-10); HEMATOCRIT 39 % (40-54); LYMPHOCYTES # (AUTO) 0.9 10^3/uL (1.0-4.0); LYMPHOCYTES % (AUTO) 13 % (12-44); MEAN CORPUSCULAR HEMOGLOBIN 32 pg (25-34); MEAN CORPUSCULAR HGB CONC 34 g/dL (32-36); MEAN CORPUSCULAR VOLUME 95 fL (80-99); MEAN PLATELET VOLUME 8.8 fL (9.0-12.2); MONOCYTES # (AUTO) 0.5 10^3/uL (0.0-1.0); MONOCYTES % (AUTO) 8 % (0-12); NEUTROPHILS # (AUTO) 4.7 10^3/uL (1.8-7.8); NEUTROPHILS % (AUTO) 74 % (42-75); PLATELET COUNT 253 10^3/uL (130-400); WHITE BLOOD COUNT 6.4 10^3/uL (4.3-11.0)
[2023-01-08 05:43] LABS: POTASSIUM 4.3 MMOL/L (3.6-5.0)
[2023-01-08 05:44] LABS: CALCIUM 8.4 MG/DL (8.5-10.1)
[2023-01-08] MEDS: POTASSIUM CL 10MEQ/50ML IVPB 50 ML IV SCH (05:46)
[2023-01-08] MEDS: POTASSIUM BICARB 20 MEQ effervescent TABLET PO SCH (05:47)
[2023-01-08] MEDS: POTASSIUM CHLORIDE 20 MEQ TABLET PO SCH (05:47)
[2023-01-08] MEDS: inSUlin ASPART 1 UNIT/0.01 ML (PER UNIT) SC SCH ×2 (05:47→11:04)
[2023-01-08 05:49] LABS: CREATININE SERUM 0.85 MG/DL (0.60-1.30)
[2023-01-08] MEDS: MAGNESIUM 1 GM/100 ML IVPB 100 ML IV SCH (06:18)
[2023-01-08] MEDS: PRIMIDONE 250MG TABLET PO SCH (06:30)
[2023-01-08] MEDS: LEVOTHYROXINE 75 MCG TABLET PO SCH (06:30)
[2023-01-08 07:20] VITALS: BP 102/58
[2023-01-08] MEDS: FINASTERIDE 5 MG TABLET PO SCH (09:31)
[2023-01-08] MEDS: ASPIRIN enteric coated 81MG TABLET PO SCH (09:31)
[2023-01-08] MEDS: APIXABAN 5 MG TABLET PO SCH (09:31)
[2023-01-08] MEDS: DOCUSATE SODIUM 100 MG CAPSULE PO SCH (09:32)
[2023-01-08 11:05] VITALS: BP 114/65
--- NOTE | 2023-01-09 13:20 | Discharge Summary ---
Diagnosis/Chief Complaint Date of Admission Dec 31, 2022 at 23:05 Date of Discharge Jan 08, 2023 at 12:10 Discharge Date: Jan 08, 2023 Admission Diagnosis Weakness Primary Care Luis Fernando Oswald DO Discharge Diagnosis (1) Weakness Status: Acute (2) Stroke-like symptoms Status: Acute (3) Delirium Status: Acute (4) Chest pain Status: Acute (5) Elevated brain natriuretic peptide (BNP) level Status: Acute (6) Chronic heart failure with preserved ejection fraction (HFpEF) Status: Chronic (7) HTN (hypertension) Status: Chronic (8) HLD (hyperlipidemia) (9) Afib Status: Chronic (10) BPH (benign prostatic hyperplasia) Status: Chronic (11) Obesity Status: Chronic (12) T2DM (type 2 diabetes mellitus) Status: Chronic Discharge Summary Discharge Physical Exam Allergies: Coded Allergies: No Known Drug Allergies (Unverified , 12/31/22) Vitals & I&Os Vital Signs Date Time Temp Pulse Resp B/P (MAP) Pulse Ox O2 Delivery O2 Flow Rate FiO2 01/08/23 12:10 01/08/23 11:05 36.5 74 18 94 Room Air 01/07/23 03:31 0.00 0.00 General Appearance: No Apparent Distress, Other (Frail) Respiratory: Chest Non Tender, Lungs Clear, No Accessory Muscle Use, No Respiratory Distress Cardiovascular: Regular Rate, Rhythm, No Gallop, No Murmur Hospital Course Was the Problem List Reviewed?: Yes Weakness Debility Confusion- resolved CT head without acute abnormalities CT spine without cause for weakness Aspirin Ezetimibe MRI brain- no evidence of stroke Carotid ultrasound mild disease noted Echo with negative bubble study PT/OT IRF evaluated and accepted for Tuesday Chest pain Elevated BNP Chronic HFpEF Chest pain resoved Troponin negative BNP elevated Echo with EF 70-75% HTN HLD AFib Pacemaker BPH Obesity Patient had an unremarkable hospital stay remained quite frail and significant fall risk with no help at home. He was felt to be a good candidate for acute rehab with a goal of return to home and is being transferred to our acute rehab facility on current hospital medication. Labs (last 24 hrs) Microbiology 12/31/22 Blood Culture - Final, Complete Patient resulted labs reviewed. Imaging: Reviewed Imaging Report Discussion & Recommendations Discharge Planning: <30 minutes discharge planning Discharge Home Medications: Active Scripts Active Reported Advair 250-50 Diskus (Fluticasone/Salmeterol) 250 Mcg-50 Mcg/Dose Blst.w.dev 1 Each IH DAILY PRN Cetirizine HCl 10 Mg Tablet 10 Mg PO DAILY PRN Eliquis (Apixaban) 5 Mg Tablet 5 Mg PO BID Metformin HCl 500 Mg Tablet 500 Mg PO BID Primidone 125 Mg Tablet 250 Mg PO HS Flomax (Tamsulosin HCl) 0.4 Mg Cap 0.4 Mg PO DAILY Synthroid (Levothyroxine Sodium) 75 Mcg Tablet 75 Mcg PO DAILY Ezetimibe 10 Mg Tablet 10 Mg PO DAILY Finasteride 5 Mg Tablet 5 Mg PO DAILY Instructions to patient/family Please see electronic discharge instructions given to patient. Copy Copies To 1: LUIS FERNANDO OSWALD DO Problem Qualifiers (1) T2DM (type 2 diabetes mellitus): Diabetes mellitus long term care phlebotomist insulin use: without alf use ARMIDA RUBIN MD Jan 09, 2023 13:20
== END 2023-01-08 12:10 | disposition home or self-care (01) | DRG 948 ==
LOC: EDUNIT# 15:13 → ER FS 15:14 → 4TH 23:05
PROVIDERS: ADMIT Internal Medicine; ATTEND Internal Medicine
DX: R53.1 Weakness (principal); E87.20 Acidosis, unspecified; R44.3 Hallucinations, unspecified; I50.32 Chronic diastolic (congestive) heart failure; I48.20 Chronic atrial fibrillation, unspecified; Z66 Do not resuscitate; R53.81 Other malaise; R41.0 Disorientation, unspecified; I11.0 Hypertensive heart disease with heart failure; E78.5 Hyperlipidemia, unspecified; Z95.0 Presence of cardiac pacemaker; N40.0 Benign prostatic hyperplasia without lower urinary tract symptoms; E66.9 Obesity, unspecified; J44.9 Chronic obstructive pulmonary disease, unspecified; E11.9 Type 2 diabetes mellitus without complications; I49.9 Cardiac arrhythmia, unspecified; Z11.52 Encounter for screening for COVID-19; E86.0 Dehydration; Z68.30 Body mass index [BMI] 30.0-30.9, adult
CPT/HCPCS: 36415; 51702; 70450; 70551; 71045; 72128; 72131; 80048; 80053; 80061; 80306; 80320; 81000; 82550; 82553; 82947; 83605; 83690; 83735; 83874; 83880; 84484; 85007; 85025; 85027; 85379; 85610; 85730; 87040; 87636; 93005; 93041; 93306; 93880; 94760; 96374

== ENCOUNTER 2023-01-08 12:11 | Inpatient (IN) | payer MEDICARE, OTHER ==
[~2023-01-08] VITALS: Ht 172.7 cm; Wt 90.8 kg
--- NOTE | 2023-01-08 07:35 | PM&R Post Admission Assessment ---
PM&R HP Date of Visit: Jan 08, 2023 Time of Visit: 12:15 History of Present Illness CC: Debility HPI: This is an 82yoWM clinic patient of Dr Oswald who goes by "Dona" and is a Section who presented to the ARU in need of aggressive therapy in order to regain function to go home. He is very independent and wants to gain strength to go home alone safely. I did note that he has a tremor when he moves and I will assess that for Parkinson's which it does not seem that he has a formal diagnosis of. Med surg HPI: William Flynn is an 82 year old male with PMH HTN, T2DM, HLD, AFib, CHF, pacemaker, BPH, obesity, who presented with weakness. He had reportedly not been out of bed for a couple days. He reportedly had urine on his clothing. He says he is normally able to walk, usually with a walker, but he can get around without any assistive device. He is currently unable to stand. He reports a right sided headache. he denies vision changes. He denies speech changes. He denies chest pain. He denies shortness of breath. He denies abdominal pain, nausea, vomiting, diarrhea. He denies dysuria. Weakness Debility Confusion- resolved CT head without acute abnormalities CT spine without cause for weakness Aspirin Ezetimibe MRI brain- no evidence of stroke Carotid ultrasound mild disease noted Echo with negative bubble study PT/OT IRF evaluated and accepted for Tuesday Chest pain Elevated BNP Chronic HFpEF Chest pain resoved Troponin negative BNP elevated Echo with EF 70-75% HTN HLD AFib Pacemaker BPH Obesity Continue home meds as able Past Mtheome-Olonua-Gwrnfe Hx Past Med/Social Hx: Reviewed Nursing Past Med/Soc Hx, Reviewed and Corrections made Patient Social History Marrital Status: single Employed/Student: retired Alcohol Use: Past History Smoking Status: Former Smoker Past Medical History Surgeries: Pacemaker Cardiac: Atrial Fibrillation, Chronic Edema/Swelling, High Cholesterol, Hypertension Genitourinary: Benign Prostatic Hyperpl Family History No Pertinent Family Hx PM&R Allergy/Meds/Data Review Allergies Coded Allergies: No Known Drug Allergies (Unverified , 12/31/22) Home Medications Scheduled Apixaban (Eliquis), 5 MG PO BID, (Reported) Ezetimibe (Ezetimibe), 10 MG PO DAILY, (Reported) Finasteride (Finasteride), 5 MG PO DAILY, (Reported) Levothyroxine Sodium (Synthroid), 75 MCG PO DAILY, (Reported) Metformin HCl (Metformin HCl), 500 MG PO BID, (Reported) Primidone (Primidone), 250 MG PO HS, (Reported) Tamsulosin HCl (Flomax), 0.4 MG PO DAILY, (Reported) Scheduled PRN Cetirizine HCl (Cetirizine HCl), 10 MG PO DAILY PRN for ALLERGIES, (Reported) Fluticasone/Salmeterol (Advair 250-50 Diskus), 1 EACH IH DAILY PRN for SHORTNESS OF BREATH, (Reported) Discontinued Medications Furosemide (Lasix), 40 MG PO BID, (Reported) Discontinued Reason: Prescription changed Furosemide (Furosemide), 40 MG PO DAILY, (Reported) Mirabegron (Myrbetriq), 50 MG PO DAILY, (Reported) Current Medications Current Medications Dementia Review of Systems Constitutional: see HPI, malaise, weakness EENTM: no symptoms reported Respiratory: no symptoms reported Cardiovascular: no symptoms reported Gastrointestinal: constipation Genitourinary: no symptoms reported Musculoskeletal: back pain, joint pain Skin: no symptoms reported Psychiatric/Neurological: Depressed All Other Systems Reviewed Negative Unless Noted: Yes Physical Exam Physical Exam Vital Signs Capillary Refill : Height, Weight, BMI Height: '" Weight: lbs. oz. kg; 32.04 BMI Method: General Appearance: No Apparent Distress, WD/WN, Anxious, Chronically ill Eyes: Bilateral Eye Normal Inspection, Bilateral Eye PERRL HEENT: PERRL/EOMI, Normal ENT Inspection, Pharynx Normal Neck: Full Range of Motion, Normal Inspection, Non Tender, Supple, Carotid Bruit Respiratory: Chest Non Tender, Lungs Clear, Normal Breath Sounds, No Accessory Muscle Use, No Respiratory Distress Cardiovascular: No Edema, No Gallop, No JVD, No Murmur, Normal Peripheral Pulses, Irregularly Irregular Gastrointestinal: Normal Bowel Sounds, No Organomegaly, No Pulsatile Mass, Non Tender, Soft Back: Normal Inspection, No CVA Tenderness, No Vertebral Tenderness Extremity: Normal Capillary Refill, Normal Inspection, Normal Range of Motion, Non Tender, No Calf Tenderness, No Pedal Edema Neurologic/Psychiatric: Alert, Oriented x3, Abnormal Gait, Depressed Affect, Motor Weakness (generalized 3/5) Skin: Normal Color, Warm/Dry Lymphatic: No Adenopathy PM&R Medical Assessment & Plan REHAB/MEDICAL ASSESSMENT AND PLAN: REHAB IMPAIRMENT GROUP: Debility (non-cardiac non-pulmonary) ETIOLOGIC DIAGNOSIS: Lactic acidosis The comorbidities that impact the patients function and/or functional outcome b y: tremor possible new dx of PD, HTN, HLP, CHF, pacemaker REHAB PLAN: The patient is being admitted to our comprehensive inpatient rehabilitation facility and can tolerate the intensity of service consisting of at least: 180 minutes of therapy a day, 5 out of 7 days a week Rehab treatment will consist of: PT OT will focus on regaining function with the use of AD in order to regain function to return home to live alone and increase ADL's The patient/family has a good understanding of our discharge process and will benefit from an interdisciplinary inpatient rehabilitation program. The patient has potential to make improvement and is in need of at least two of the following multidisciplinary therapies including but not limited to physical, occupational, speech, and prosthetics and orthotics. Additionally the patient will need services from respiratory, nutritional services, wound care, psychology, etc. (Customize this to each patient). Given the patients complex condition and risk of further medical complications, rehabilitation services cannot be safely or effectively provided at a lower level of care such as a jail facility. BARRIERS TO DISCHARGE: Lives alone and very debilitated ESTIMATED LOS: 10 days DISPOSITION: Home RELEVANT CHANGES SINCE PREADMISSION SCREENING: I have compared the patients medical and functional status at the time of the preadmission screening and there are: no changes PROGNOSIS: Good REHABILITATION GOALS: 1. PT OT will focus on regaining function with the use of AD in order to regain function to return home to live alone and increase ADL's All the above goals were reviewed with the patient and he/she is in agreement. By signing this document, I acknowledge that I have personally performed a full physical examination on this patient within 24 hours of admission to this inpatient rehabilitation facility and have determined the patient to be able to tolerate the above course of treatment at an intensive level for a reasonable period of time. I will be completing a detailed individualized Plan of Care for this patient by day #4 of the patients stay based upon the Preadmission Screen, the Post-Admission Evaluation, and the therapy evaluations. Admission Dx/Comorbidities: (1) Debilitated patient Status: Acute ICD Codes: R53.81 - Other malaise Assessment/Plan Assessment and Plan Assess & Plan/Chief Complaint Weakness Debility Confusion- resolved CT head without acute abnormalities CT spine without cause for weakness Aspirin Ezetimibe MRI brain- no evidence of stroke Carotid ultrasound mild disease noted Echo with negative bubble study PT/OT IRF evaluated and accepted for Tuesday Chest pain Elevated BNP Chronic HFpEF Chest pain resoved Troponin negative BNP elevated Echo with EF 70-75% HTN HLD AFib Pacemaker BPH Obesity Continue home meds as able Plan: PT OT Monitor BP Increase mobility EVELYN CASSIDY DO Jan 08, 2023 07:35
[~2023-01-08 12:11] MED LIST: APIX5TAB PO; BISACODYL 10 MG SUPPOSITORY PR PRN; CALCIUM CARBONATE 500 MG CHEW TABLET PO PRN; CETI10TA17 PO; DOCUSATE SODIUM 100 MG CAPSULE PO PRN; DOCUSATE SODIUM 100 MG CAPSULE PO SCH; EZET10TA49 PO; FINA5TAB6 PO; FLUT1DIS26 IH; FURO-124 PO; FURO20TA4 PO; LACTULOSE SYRUP 10GM/15ML 30ML UDC PO PRN; LEVO75TA PO; LOPERAMIDE 2 MG CAPSULE PO PRN; MELATONIN 3 MG TABLET PO PRN; METF-397 PO; MIRA50TA PO; ONDANSETRON 4 MG ORAL DISSOLVE TABLET PO PRN; PRIM125T PO; Sodium Phosphate/Sodium Biphosphate ADULT enema PR PRN; TMSL.4C PO; diphenhydrAMINE 25 MG TABLET PO PRN; guaiFENesin/CODEINE 10ML UDC PO PRN
[2023-01-08 12:15] VITALS: BP 118/55
--- OUTSIDE RECORDS SUMMARY | 2023-01-08 12:19 | XMS REPORT | Clinical Summary ---
Author Author [facility] Organization [facility] Address Unknown Phone Unavailable Care Team Providers Care Associate Professor Of Biostatistics Name Role Phone Luis Fernando Oswald MD PCP [phone] Allergies Active Allergy Reactions Criticality Noted Date Comments Doxycycline 01/12/2016 Medications Medication Sig Dispensed Refills Start Date End Date Status cetirizine (ZYRTEC) 5 MG tablet Take 5 mg by mouth daily. 5 04/08/2015 Active RESTASIS 0.05 % ophthalmic emulsion 3 04/01/2015 Active levothyroxine (SYNTHROID, LEVOTHROID) 50 MCG tablet 3 03/28/2015 Active metFORMIN (GLUCOPHAGE) 500 MG tablet 3 02/20/2015 Active traMADol (ULTRAM) 50 mg tablet 1 04/10/2015 Active fluticasone-drake meterol (ADVAIR) 250-50 mcg/dose DISKUS Inhale 1 puff. 0 Activ e esomeprazole (NEXIUM) 40 MG capsule Take 40 mg by mouth every morning before breakfast. 0 Active ezetimibe (ZETIA) 10 mg tablet Take 10 mg by mouth daily. 0 Active nystatin (MYCOSTATIN) ointment Apply topically 2 (two) times a day. 0 Active blood sugar diagnostic Strp by Miscellaneous route. 0 Active triamcinolone (KENALOG) 0.025 % cream Apply topically 2 (two) times a day. 0 Active amoxicillin-cla vulanate (AUGMENTIN) 875-125 mg per tablet TK 1 T PO BID 0 03/24/2018 Active ELIQUIS 5 mg tablet 5 mg 2 (two) times a day. 1 04/07/2018 Active cyclobenzaprine (FLEXERIL) 10 MG tablet 10 mg 3 (three) times a day. 1 02/08/2018 Active ALPRAZolam (XANAX) 0.25 MG tabletIndicatio ns:Primary insomnia Take 2 tablets (0.5 mg total) by mouth nightly as needed for sleep. 60 tablet 5 04/18/2018 Active cloNIDine HCl (CATAPRES) 0.1 mg tablet Take 2 tablets (0.2 mg total) by mouth nightly. 180 tablet 3 07/11/2018 Active primidone (MYSOLINE) 250 MG tabletIndicatio ns:essential tremor Take 1 tablet (250 mg total) by mouth at bedtime. 90 tablet 2 12/26/2018 Active clonazePAM (KLONOPIN) 0.5 MG tabletIndicatio ns:essential tremor Take 1 tablet (0.5 mg total) by mouth 2 (two) times a day. 180 tablet 1 12/26/2018 Active topiramate (TOPAMAX) 25 MG tablet TAKE 2 TABLETS BY MOUTH EVERY NIGHT 180 tablet 3 08/02/2018 12/27/19 19 Discontinued Active Problems Problem Noted Date Diagnosed Date Tremor, essential 02/16/2017 Resolved Problems Problem Noted Date Diagnosed Date Resolved Date Other specified forms of tremor 02/07/2014 04/17/2018 Overview: IMO Update Family History Medical History Relation Name Comments Other Mother Diagnosed with HTN, Relation Name Status Comments Father (Age 80 ) Cause of was CVA at age 80. Mother Social History Tobacco Use Types Packs/Day Years Used Date Smoking Tobacco: Never Smokeless Tobacco: Never Tobacco Cessation:Counseling Given: No Alcohol Use Standard Drinks/Week Comments Yes 0 (1 standard drink = 0.6 oz pur e alcohol) Sex and Gender Information Value Date Recorded Sex Assigned at Not on file Gender Identity Not on file Sexual Orientation Not on file Last Filed Vital Signs Vital Sign Reading Time Taken Comments Blood Pressure 129/76 12/26/2018 3:21 PM CANOPY INSPECTOR Pulse 58 12/26/2018 3:21 PM CANOPY INSPECTOR Temperature 36.4 C (97.6 F) 07/31/2013 2:03 PM C DT Respiratory Rate 16 02/07/2014 2:25 PM CANOPY INSPECTOR Oxygen Saturation - - Inhaled Oxygen Concentration - - Weight 88 kg (194 lb) 12/26/2018 3:21 PM CANOPY INSPECTOR Height 174 cm (5' 8.5") 12/26/2018 3:21 PM CANOPY INSPECTOR Body Mass Index 29.07 12/26/2018 3:21 PM CANOPY INSPECTOR Plan of Treatment Health Maintenance Due Date Last Done Comments Td/Tdap# 1940 COVID-19 Vaccine (#1) 1940 Depression Screening PHQ-9 # 2006 Fall Risk Assessment # 2006 Advance Care Planning Conversation# 02/21/2022 Medicare Annual Wellness 02/21/2022 Social Determinants of Health# 02/21/2022 Influenza Vaccine (#1) 2022 9, 11/17/2017, 11/25/2016, Additional history exists Pneumococcal Vaccine: 65+ Years Completed 5, 01/25/2012 Zoster Vaccine# Completed 05/19/2018, 03/2017, 12/19/2014 Advance Directives For more information, please contact: [phone] Documents on File Type Date Recorded Patient [facility] Expl anation Health Care Directive 06/04/2013 7:59 AM Care Teams Associate Professor Of Biostatistics Relationship Specialty Start Date End Date Luis Fernando Oswald MD PCP - General 06/06/14
[2023-01-08] MEDS: ACETAMINOPHEN 325 MG TABLET PO PRN ×2 (15:05→21:07)
[2023-01-08] MEDS ORDERED: MELATONIN 3 MG TABLET PO PRN (15:45)
[2023-01-08] MEDS ORDERED: ONDANSETRON 4 MG ORAL DISSOLVE TABLET PO PRN (15:45)
[2023-01-08] MEDS ORDERED: CARBAMIDE PEROXIDE 6.5% EACH EAR PRN (15:45)
[2023-01-08] MEDS ORDERED: ACETAMINOPHEN 325 MG TABLET PO PRN (15:45)
[2023-01-08] MEDS ORDERED: ANTACID SUSPENSION 30 ML UDC PO PRN (15:45)
[2023-01-08] MEDS ORDERED: ONDANSETRON INJECTION 4 MG/2 ML (SDV) IV PRN (15:45)
[2023-01-08] MEDS ORDERED: BISACODYL 10 MG SUPPOSITORY PR PRN (15:45)
[2023-01-08] MEDS ORDERED: LACTULOSE SYRUP 10GM/15ML 30ML UDC PO PRN (15:45)
[2023-01-08] MEDS: SENNA W/DOCUSATE TABLET PO SCH ×2 (15:52→21:13)
[2023-01-08] MEDS: oxyCODONE IMMEDIATE RELEASE 5 MG TABLET PO PRN (16:00)
[2023-01-08 16:47] VITALS: BP 118/55
[2023-01-08] MEDS: inSUlin ASPART 1 UNIT/0.01 ML (PER UNIT) SC SCH ×2 (16:54→20:55)
[2023-01-08] MEDS: TAMSULOSIN 0.4 MG (FLOMAX) CAP PO SCH (17:09)
[2023-01-08 20:55] VITALS: BP 119/76
[2023-01-08] MEDS: APIXABAN 5 MG TABLET PO SCH (21:07)
[2023-01-08] MEDS: DOCUSATE SODIUM 100 MG CAPSULE PO SCH (21:13)
[2023-01-09] MEDS: oxyCODONE IMMEDIATE RELEASE 5 MG TABLET PO PRN ×4 (04:38→20:17)
[2023-01-09 05:29] LABS: BASOPHILS # (AUTO) 0.1 10^3/uL (0.0-0.1); BASOPHILS % (AUTO) 1 % (0-10); EOSINOPHILS # (AUTO) 0.2 10^3/uL (0.0-0.3); EOSINOPHILS % (AUTO) 3 % (0-10); HEMATOCRIT 37 % (40-54); HEMOGLOBIN 12.6 g/dL (13.3-17.7); LYMPHOCYTES # (AUTO) 0.9 10^3/uL (1.0-4.0); LYMPHOCYTES % (AUTO) 13 % (12-44); MEAN CORPUSCULAR HEMOGLOBIN 32 pg (25-34); MEAN CORPUSCULAR HGB CONC 34 g/dL (32-36); MEAN CORPUSCULAR VOLUME 95 fL (80-99); MEAN PLATELET VOLUME 9.2 fL (9.0-12.2); MONOCYTES # (AUTO) 0.6 10^3/uL (0.0-1.0); MONOCYTES % (AUTO) 9 % (0-12); NEUTROPHILS # (AUTO) 5.2 10^3/uL (1.8-7.8); NEUTROPHILS % (AUTO) 74 % (42-75); PLATELET COUNT 286 10^3/uL (130-400); WHITE BLOOD COUNT 7.1 10^3/uL (4.3-11.0)
[2023-01-09 05:47] LABS: ALBUMIN 2.9 GM/DL (3.2-4.5); POTASSIUM 4.1 MMOL/L (3.6-5.0)
[2023-01-09 05:48] LABS: CALCIUM 8.4 MG/DL (8.5-10.1)
[2023-01-09 05:49] LABS: TOTAL PROTEIN 5.5 GM/DL (6.4-8.2)
[2023-01-09 05:51] LABS: BILIRUBIN,TOTAL 0.3 MG/DL (0.1-1.0)
[2023-01-09 05:53] LABS: CREATININE SERUM 0.86 MG/DL (0.60-1.30)
[2023-01-09] MEDS: inSUlin ASPART 1 UNIT/0.01 ML (PER UNIT) SC SCH ×4 (05:58→20:56)
[2023-01-09] MEDS: LEVOTHYROXINE 75 MCG TABLET PO SCH (06:37)
[2023-01-09] MEDS: PRIMIDONE 250MG TABLET PO SCH (06:37)
[2023-01-09 07:30] VITALS: BP 113/76
[2023-01-09] MEDS: DOCUSATE SODIUM 100 MG CAPSULE PO SCH ×2 (08:44→20:17)
[2023-01-09] MEDS: SENNA W/DOCUSATE TABLET PO SCH ×2 (08:44→20:17)
[2023-01-09] MEDS: APIXABAN 5 MG TABLET PO SCH ×2 (08:44→20:17)
[2023-01-09] MEDS: ASPIRIN enteric coated 81MG TABLET PO SCH (08:44)
[2023-01-09] MEDS: FINASTERIDE 5 MG TABLET PO SCH (08:44)
--- NOTE | 2023-01-09 13:37 | PM&R Progress Note ---
Subjective HPI/CC On Admission Date Seen by Provider: Jan 09, 2023 Time Seen by Provider: 08:15 Subjective/Events-last exam 01/09/2023: Patient doing about the same Reviewed meds and labs No falls Pain is pretty well controlled Labs reviewed No hypoxia Review of Systems General: Fatigue, Malaise Neurological: Weakness Objective Exam Vital Signs Vital Signs Date Time Temp Pulse Resp B/P (MAP) Pulse Ox O2 Delivery O2 Flow Rate FiO2 01/09/23 09:40 Room Air 01/09/23 07:30 37.2 65 16 113/76 (88) 95 Capillary Refill : General Appearance: No Apparent Distress, WD/WN, Anxious, Chronically ill HEENT: PERRL/EOMI, Normal ENT Inspection, Pharynx Normal Neck: Full Range of Motion, Normal Inspection, Non Tender, Supple, Carotid Bruit Respiratory: Chest Non Tender, Lungs Clear, Normal Breath Sounds, No Accessory Muscle Use, No Respiratory Distress Cardiovascular: No Edema, No Gallop, No JVD, No Murmur, Normal Peripheral Pulses, Irregularly Irregular Gastrointestinal: Normal Bowel Sounds, No Organomegaly, No Pulsatile Mass, Non Tender, Soft Back: Normal Inspection, No CVA Tenderness, No Vertebral Tenderness Extremity: Normal Capillary Refill, Normal Inspection, Normal Range of Motion, Non Tender, No Calf Tenderness, No Pedal Edema Neurologic/Psychiatric: Alert, Oriented x3, Abnormal Gait, Depressed Affect, Motor Weakness (generalized 3/5) Skin: Normal Color, Warm/Dry Lymphatic: No Adenopathy Results/Procedures Lab Laboratory Tests 01/09/23 05:12 Patient resulted labs reviewed. FIM Transfers Therapy Code Descriptions/Definitions Functional [place] Measure: 0=Not Assessed/NA 4=Minimal Assistance 1=Total Assistance 5=Supervision or Setup 2=Maximal Assistance 6=Modified [place] 3=Moderate Assistance 7=Complete IndependenceSCALE: Activities may be completed with or without assistive devices. 6-Ngdljwaooq-vyxmvgb completes the activity by him/herself with no assistance from a helper. 5-Set-up or Clean-up Assistance-helper sets up or cleans up; patient completes activity. [place] assists only prior to or following the activity. 4-Supervision or Touching Assistance-helper provides verbal cues and/or touching/steadying and/or contact guard assistance as patient completes activity. Assistance may be provided throughout the activity or intermittently. 3-Partial/Moderate Assistance-helper does LESS THAN HALF the effort. [place] li fts, holds or supports trunk or limbs, but provides less than half the effort. 2-Substantial/Maximal Assistance-helper does MORE THAN HALF the effort. [place] lifts or holds trunk or limbs and provides more than half the effort. 5-Wuubvxbhh-tpeqmg does ALL the effort. Patient does none of the effort to complete the activity. Or, the assistance of 2 or more helpers is required for the patient to complete the activity. If activity was not attempted, code reason: 7-Patient Refused. 9-Not Applicable-not attempted and the patient did not perform the activity before the current illness, exacerbation or injury. 10-Not Attempted due to Environmental Limitations-(lack of equipment, weather restraints, etc.). 88-Not Attempted due to Medical Conditions or Safety Concerns. Assessment/Plan Assessment and Plan Assess & Plan/Chief Complaint Weakness Debility Confusion- resolved CT head without acute abnormalities CT spine without cause for weakness Aspirin Ezetimibe MRI brain- no evidence of stroke Carotid ultrasound mild disease noted Echo with negative bubble study PT/OT IRF evaluated and accepted for Tuesday Chest pain Elevated BNP Chronic HFpEF Chest pain resoved Troponin negative BNP elevated Echo with EF 70-75% HTN HLD AFib Pacemaker BPH Obesity Continue home meds as able Plan: PT OT Monitor BP Increase mobility 01/09/2023: Supportive care Monitor blood pressure closely (1) Debilitated patient Status: EVELYN Arias DO Jan 09, 2023 13:37
[2023-01-09] MEDS ORDERED: CATHETER FLUSH 10 ML SYR IVP PRN (16:15)
[2023-01-09] MEDS: TAMSULOSIN 0.4 MG (FLOMAX) CAP PO SCH (18:57)
[2023-01-09 19:35] VITALS: BP 136/75
[2023-01-09] MEDS: CATHETER FLUSH 10 ML SYR IVP SCH (21:01)
[2023-01-09] MEDS: ACETAMINOPHEN 325 MG TABLET PO PRN (22:57)
[2023-01-10] MEDS: PRIMIDONE 250MG TABLET PO SCH (05:02)
[2023-01-10] MEDS: CATHETER FLUSH 10 ML SYR IVP SCH ×3 (05:02→20:46)
[2023-01-10] MEDS: LEVOTHYROXINE 75 MCG TABLET PO SCH (05:02)
[2023-01-10] MEDS: oxyCODONE IMMEDIATE RELEASE 5 MG TABLET PO PRN ×4 (05:02→20:46)
[2023-01-10] MEDS: inSUlin ASPART 1 UNIT/0.01 ML (PER UNIT) SC SCH ×4 (05:05→20:46)
--- NOTE | 2023-01-10 05:14 | PM&R Progress Note ---
Subjective HPI/CC On Admission Date Seen by Provider: Jan 10, 2023 Time Seen by Provider: 09:00 Subjective/Events-last exam 01/10/2023: Doing well Edema still present Labs stable No falls Participation is good 01/09/2023: Patient doing about the same Reviewed meds and labs No falls Pain is pretty well controlled Labs reviewed No hypoxia Objective Exam Vital Signs Vital Signs Date Time Temp Pulse Resp B/P (MAP) Pulse Ox O2 Delivery O2 Flow Rate FiO2 01/10/23 20:32 36.3 67 20 138/75 (96) 95 Room Air Capillary Refill : General Appearance: No Apparent Distress, WD/WN, Anxious, Chronically ill HEENT: PERRL/EOMI, Normal ENT Inspection, Pharynx Normal Neck: Full Range of Motion, Normal Inspection, Non Tender, Supple, Carotid Bruit Respiratory: Chest Non Tender, Lungs Clear, Normal Breath Sounds, No Accessory Muscle Use, No Respiratory Distress Cardiovascular: No Edema, No Gallop, No JVD, No Murmur, Normal Peripheral Pulses, Irregularly Irregular Gastrointestinal: Normal Bowel Sounds, No Organomegaly, No Pulsatile Mass, Non Tender, Soft Back: Normal Inspection, No CVA Tenderness, No Vertebral Tenderness Extremity: Normal Capillary Refill, Normal Inspection, Normal Range of Motion, Non Tender, No Calf Tenderness, No Pedal Edema Neurologic/Psychiatric: Alert, Oriented x3, Abnormal Gait, Depressed Affect, Motor Weakness (generalized 3/5) Skin: Normal Color, Warm/Dry Lymphatic: No Adenopathy Results/Procedures Lab Patient resulted labs reviewed. FIM Transfers Therapy Code Descriptions/Definitions Functional [place] Measure: 0=Not Assessed/NA 4=Minimal Assistance 1=Total Assistance 5=Supervision or Setup 2=Maximal Assistance 6=Modified [place] 3=Moderate Assistance 7=Complete IndependenceSCALE: Activities may be completed with or without assistive devices. 3-Agzwgymdbm-qvyltbd completes the activity by him/herself with no assistance from a helper. 5-Set-up or Clean-up Assistance-helper sets up or cleans up; patient completes activity. [place] assists only prior to or following the activity. 4-Supervision or Touching Assistance-helper provides verbal cues and/or touching/steadying and/or contact guard assistance as patient completes activity. Assistance may be provided throughout the activity or intermittently. 3-Partial/Moderate Assistance-helper does LESS THAN HALF the effort. [place] lifts, holds or supports trunk or limbs, but provides less than half the effort. 2-Substantial/Maximal Assistance-helper does MORE THAN HALF the effort. [place] lifts or holds trunk or limbs and provides more than half the effort. 4-Yrcnructa-pfdvaw does ALL the effort. Patient does none of the effort to c omplete the activity. Or, the assistance of 2 or more helpers is required for the patient to complete the activity. If activity was not attempted, code reason: 7-Patient Refused. 9-Not Applicable-not attempted and the patient did not perform the activity before the current illness, exacerbation or injury. 10-Not Attempted due to Environmental Limitations-(lack of equipment, weather restraints, etc.). 88-Not Attempted due to Medical Conditions or Safety Concerns. Assessment/Plan Assessment and Plan Assess & Plan/Chief Complaint Weakness Debility Confusion- resolved CT head without acute abnormalities CT spine without cause for weakness Aspirin Ezetimibe MRI brain- no evidence of stroke Carotid ultrasound mild disease noted Echo with negative bubble study PT/OT IRF evaluated and accepted for Tuesday Chest pain Elevated BNP Chronic HFpEF Chest pain resoved Troponin negative BNP elevated Echo with EF 70-75% HTN HLD AFib Pacemaker BPH Obesity Continue home meds as able Plan: PT OT Monitor BP Increase mobility 01/09/2023: Supportive care Monitor blood pressure closely 01/10/2023: Continue treatment Monitor closely (1) Debilitated patient Status: EVELYN Arias DO Jan 10, 2023 05:14
[2023-01-10 08:00] VITALS: BP 133/67
[2023-01-10] MEDS: APIXABAN 5 MG TABLET PO SCH ×2 (09:00→20:45)
[2023-01-10] MEDS: FINASTERIDE 5 MG TABLET PO SCH (09:00)
[2023-01-10] MEDS: SENNA W/DOCUSATE TABLET PO SCH ×2 (09:00→20:45)
[2023-01-10] MEDS: ASPIRIN enteric coated 81MG TABLET PO SCH (09:00)
[2023-01-10] MEDS: DOCUSATE SODIUM 100 MG CAPSULE PO SCH ×2 (09:02→20:46)
--- NOTE | 2023-01-10 12:33 | Physical Therapy Evaluation ---
PT Evaluation-General Medical Diagnosis Admission Date Jan 08, 2023 at 12:11 Medical Diagnosis: Debility Onset Date: Dec 31, 2022 Therapy Diagnosis Therapy Diagnosis: debility, impaired balance/coordination, mobility deficit, fall risk Precautions Precautions/Isolations: Fall Prevention, Standard Precautions Weight Bear Status Right Lower Extremity: Right Full Weight Bearing Left Lower Extremity: Left Full Weight Bearing Referral Physician: Hamzah Reason for Referral: Evaluation/Treatment Medical History Pertinent Medical History: Atrial Fib, COPD, DM, Hypothroidism Additional Medical History HLD, CHF, pacemaker, BPH, obesity, UTIs, (L) knee surgery. Current History Patient states he could not get out of bed for 2 days and a family member took him to the ER. Social History Home: Multilevel Current Living Status: Alone Entry Into Home: Stairs With Railing PT Steps Into Home: 4 PT Steps Inside Home: 14 (but he is able to live on 1 level) Prior Prior Level of Function SCALE: Activities may be completed with or without assistive devices. 5-Kelywylobi-xzxfxyw completes the activity by him/herself with no assistance from a helper. 5-Set-up or Clean-up Assistance-helper sets up or cleans up; patient completes activity. [place] assists only prior to or following the activity. 4-Supervision or Touching Assistance-helper provides verbal cues and/or touching/steadying and/or contact guard assistance as patient completes activity. Assistance may be provided throughout the activity or intermittently. 3-Partial/Moderate Assistance-helper does LESS THAN HALF the effort. [place] lifts, holds or supports trunk or limbs, but provides less than half the effort. 2-Substantial/Maximal Assistance-helper does MORE THAN HALF the effort. [place] lifts or holds trunk or limbs and provides more than half the effort. 0-Ascciulbc-qxeydf does ALL the effort. Patient does none of the effort to complete the activity. Or, the assistance of 2 or more helpers is required for the patient to complete the activity. If activity was not attempted, code reason: 7-Patient Refused. 9-Not Applicable-not attempted and the patient did not perform the activity before the current illness, exacerbation or injury. 10-Not Attempted due to Environmental Limitations-(lack of equipment, weather restraints, etc.). 88-Not Attempted due to Medical Conditions or Safety Concerns. Bed Mobility: 6 Transfers (B,C,W/C): 6 Gait: 6 Stairs: 6 Wheelchair Mobility: 9 Indoor Mobility (Ambulation): Independent Stairs: Independent Prior Devices Use: None Drove, would work out at [employer] in [place] every other day. Has a cleaning lady M-W-F who also helps with cooking and laundry. PT Evaluation-Current Subjective Patient has no real c/o pain- "nothing new". Pain Section J - Health Conditions 1. Rarely or not at all 2. Occasionally 3. Frequently 4. Almost constantly 8. Unable to answer Pain Effect on Sleep: 1 Pain Interference with Therapy: 1 Pain Interference w/Day-to-Day: 1 Pt/Family Goals To return to his home. Objective Patient Orientation: Person, Confused (high level), Place Attachments: Nichole Catheter ROM/Strength ROM Upper Extremities Defer to OT ROM Lower Extremities Genu varus deformities (B), (L) greater than (R) Strength Upper Extremities defer to OT Strength Lower Extremities 4 to 4+/5 (B) ankles, knees. Hip flexion/abd/add 3+/5 (B). Integumentary/Posture Bladder Incontinence: Nichole Cath Sensory Vision: Functional Hearing: Functional Sensation Right Lower Extremit: Intact Sensation Left Lower Extremity: Intact Transfers Roll Left & Right (QC): 6 ((I) using bed rail) Sit to Lying (QC): 6 Lying to Sitting/Side of Bed(Q: 4 (/c vc to use railing) Sit to Stand (QC): 3 (min (A) from recliner and EOB, cues for hand placement) Chair/Jzr-lt-Vzeej Xfer(QC): 3 (min (A) /c FWW) Toilet Transfer (QC): 3 (Min (A) /c FWW) Car Transfer (QC): 3 (min (A) /c cues) Gait Walk 10 feet (QC): 3 (min (A) /c FWW. Has tremors when walking that were not apparent with LE MMT nor bed mobility.) Walk 50 ft with 2 Turns(QC): 3 (Min (A) /c FWW - tremors noted) Walk 150 ft (QC): 88 (unable to meet distance due to fatigue) Walking 10ft/uneven surface-QC: 3 (Mod (A) to step up onto uneven surface) Distance: 68', 44' Gait Assistive Device: FWW Wheelchair Training Does the Pt Use a Wheelchair?: Yes Distance: 20' SBA to propel /c (B) UE's, distance limited by fatgiue Wheel 50 ft with 2 turns (QC): 88 (unable to meet distance) Wheel 150 ft (QC): 88 (unable to meet distance) Type of Wheelchair: Manual Stairs 1 Step (curb) (QC): 1 (mod (A) of 2 for safety - froze at front of step and required extensive cues, assist with walker due to tremors, and assist to accomplish) 4 Steps (QC): 88 12 Steps (QC): 88 Walking Assistive Device: Walker Balance Sitting Static: Good Sitting Dynamic: Fair Standing Static: Fair Picking up an Object (QC): 3 (min (A) using washtub worker) Special Test Comments Elderly Mobility Scale: 09/09 Assessment/Needs 82 year old male admitted to ARU after hospitalization with dx of debility. Has extensive tremors when upright/walking. No resting tremor noted. No tremor with LE MMT noted. Has mobility deficits that require ARU therapy intervention in attempt to improve strength/coordination/balance so that patient can return home at a safe maximum functional level. 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 Goals Time Frame: Jan 24, 2023 Roll Left to Right (QC): 6 Sit to Lying (QC): 6 Lying-Sitting on Side/Bed(QC): 6 Sit to Stand (QC): 6 Chair/Awz-bp-Bqgng Xfer(QC): 6 (/c FWW) Toilet/Commode Transfer (QC): 6 Car Transfer (QC): 5 Does the Patient Walk: Yes Walk 10 feet (QC): 6 (/c FWW) Walk 10ft-Uneven Surface(QC): 4 (SBA /c FWW) Walk 50ft with 2 Turns (QC): 6 (/c FWW) Walk 150 ft (QC): 6 (/c FWW) Does the Pt use WC or Scooter?: Yes Wheel 50 feet with 2 turns (QC: 6 Type: Manual Wheel 150 feet: 6 Type: Manual 1 Step (curb) (QC): 4 (CGA /c cues and FWW) 4 Steps (QC): 4 (/c (B) rails) 12 Steps (QC): 4 (/c (B) rails) Picking up an Object (QC): 5 (/c washtub worker) Elderly Mobility Scale 12/10 PT Plan Problem List Problem List: Activity Tolerance, Functional Strength, Safety, Balance, Gait, Transfer, Bed Mobility Treatment/Plan Treatment Plan: Continue Plan of Care Treatment Plan: Bed Mobility, Concurrent Therapy, Education, Functional Activity Christelle, Functional Strength, Group Therapy, Gait, Safety, Therapeutic Exercise, Transfers Treatment Duration: Jan 24, 2023 Frequency: At least 5 of 7 days/Wk (IRF) Estimated Hrs Per Day: 1.5 hours per day Patient and/or Family Agrees t: Yes Safety Risks/Education Patient Education: Gait Training, Transfer Techniques, Steps Teaching Recipient: Patient Teaching Methods: Demonstration, Discussion Response to Teaching: Reinforcement Needed Discharge Recommendations Therapy Discharge Recommendati: Post Acute PT Equpiment Recommendations-D/C: Front Wheeled Walker, Manual Wheelchair Target Placement TBD Time Time In: 1015 Time Out: 1130 DATE: Jan 10, 2023 Total Billed Treatment Time: 75 Total Billed Treatment 1, PAIGE, Gt, FA Shirley Lamb PT Jan 10, 2023 12:33
--- NOTE | 2023-01-10 13:52 | Occupational Therapy Eval ---
OT Evaluation-General/PLF Medical Diagnosis Admission Date Jan 08, 2023 at 12:11 Medical Diagnosis: Debility Onset Date: Dec 31, 2022 Therapy Diagnosis Therapy Diagnosis: decreased activity tolerance, decreased ADL independence Precautions Precautions/Isolations: Fall Prevention, Standard Precautions Referral Physician: Hamzah Medical History Pertinent Medical History: Atrial Fib, COPD, DM, Hypothroidism Reviewed History: Yes Social History Home: Multilevel Current Living Status: Alone Entry Into Home: Stairs With Railing Steps Into Home: 4 Steps Inside Home: 14 (but he is able to live on 1 level) ADL-Prior Level of Function SCALE: Activities may be completed with or without assistive devices. 4-Ggzhgbndeb-gpbueli completes the activity by him/herself with no assistance from a helper. 5-Set-up or Clean-up Assistance-helper sets up or cleans up; patient completes a ctivity. [place] assists only prior to or following the activity. 4-Supervision or Touching Assistance-helper provides verbal cues and/or touching/steadying and/or contact guard assistance as patient completes activity. Assistance may be provided throughout the activity or intermittently. 3-Partial/Moderate Assistance-helper does LESS THAN HALF the effort. [place] lifts, holds or supports trunk or limbs, but provides less than half the effort. 2-Substantial/Maximal Assistance-helper does MORE THAN HALF the effort. [place] lifts or holds trunk or limbs and provides more than half the effort. 3-Ewveqtagi-kerzji does ALL the effort. Patient does none of the effort to complete the activity. Or, the assistance of 2 or more helpers is required for the patient to complete the activity. If activity was not attempted, code reason: 7-Patient Refused. 9-Not Applicable-not attempted and the patient did not perform the activity before the current illness, exacerbation or injury. 10-Not Attempted due to Environmental Limitations-(lack of equipment, weather restraints, etc.). 88-Not Attempted due to Medical Conditions or Safety Concerns. ADL PLOF Comments Pt reports independence with ADLs, though has an aide who comes 3x/wk to clean and help with meal preparation. Pt reports he used a FWW PRN prior to hospitalization. Self Care: Needed Some Help Functional Cognition: Needed Some Help DME/Equipment: Shower Occupation: retired [address] Self: Yes Leisure Interests: working out, watching TV OT Current Status Subjective Pt received lying supine in bed with RN at bedside. Pt very pleasant and willing to participate in therapy. Pain Numeric Pain Scale: 3 Location Body Site: Shoulder (and hip) Pain Description: Ache Mental Status/Objective Patient Orientation: Person, Place, Time, Situation Attachments: Nichole Catheter, IV Current Glasses/Contacts: No Hearing Aids: No Dentures/Partials: No Hand Dominance: Right Upper Extremity ROM WFL in bilateral shoulders, elbow and hand ROM Upper Extremity Coordination Tremors when active, though no resting tremors noted this session Upper Extremity Sensation WFL Upper Extremity Strength Bilateral strength: Shoulders: 4-/5 Elbows: 4/5 Substation Manager: 3+/5 ADL-Treatment Eating (QC): 5 Oral Hygiene (QC): 4 (sitting at sink ) Shower/Bathe Self (QC): 2 Upper Body Dressing (QC): 4 Lower Body Dressing (QC): 3 (required assistance threading RLE; able to thread LLE and pull up pants) On/Off Footwear (QC): 3 (to don/doff socks and compression socks) Toileting Hygiene (QC): 3 (for thoroughness ) Other Treatments Pt completed bed mobility with supervision and no cues for safety. Pt completed 3 functional transfers with use of FWW and Max A for balance, requiring min cues for posture and safety. Introduced sock aid, though pt requires reinforcement and additional education. Pt completed dynamic sitting activity with #2 wrist weights in unsupported sitting for ~5mins with supervision. Throughout session pt demonstrated poor short term memory by consistently asking for names multiple times throughout the session, asking for repeat of instructions etc. Education OT Patient Education: Correct positioning, Energy conservation, Modified ADL techniques, Progress toward Goal/Update tx plan, Purpose of tx/functional activities, Rehab process, Safety issues, Transfer techniques, Use of adapted equipment, W/C management Teaching Recipient: Patient Teaching Methods: Demonstration, Discussion Response to Teaching: Verbalize Understanding, Return Demonstration, Reinforcement Needed BIMS CAM BIMS Expression of Ideas and Wants: Without Difficulty Understanding Verbal Content: Usually Understands Brief Interview/Mental Status: Yes IRF KATHARINA BIMS: IRF KATHARINA BIMS Response (Comments) Value Repitition of Three Words Three 3 Recalls Socks Yes, No Cue Required 2 Recalls Blue Yes, No Cue Required 2 Recalls Bed Yes, No Cue Required 2 Year Correct 3 Month Accurate Within 5 Days 2 Day Correct 1 Total 15 Patient Normally Able to Recal: Current Session, Location of own room, That he/she in a hsp Should Staff Asses. 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 2=Patient will verbalize/demonstrate understanding of assistive devices/modifications for ADL. 3=Patient will improve strength/tolerance for activity to enable patient to perform ADL's. OT Education/Plan Problem List/Assessment Assessment: Decreased Activ Tolerance, Decreased Safety Aware, Decreased UE Strength, Impaired Cognition, Impaired Coordination, Impaired Funct Balance, Impaired I ADL's, Impaired Self-Care Skills Discharge Recommendations Plan/Recommendations: Continue POC Comment will make additional recommendations closer to d/c date Barriers to Progress cognition, pain Treatment Plan/Plan of Care Treatment,Training & Education: Yes Patient would benefit from OT for education, treatment and training to promote independence in ADL's, mobility, safety and/or upper extremity function for ADL's. Plan of Care: ADL Retraining, Cognitive Retraining, Concurrent Therapy, Functional Mobility, Group Exercise/Act as Ind, UE Funct Exercise/Act Treatment Duration: Feb 07, 2023 Frequency: At least 5 of 7 days/Wk (IRF) Estimated Hrs Per Day: Other (75 minutes per day ) Agreement: Yes Rehab Potential: Fair Time Start Time: 08:00 Stop Time: 09:15 DATE: Jan 10, 2023 Total Time Billed (hr/min): 75 Billed Treatment Time 1, EVM, ADL 3, FA 1 Kavitha Coelho OTR/L Jan 10, 2023 13:52
--- NOTE | 2023-01-10 14:12 | Occupational Ther Daily Note ---
OT Current Status-Daily Note Subjective Pt received sitting in recliner with RN at bedside. Pt pleasant and willing to participate in therapy. Pain Numeric Pain Scale: 4 Location Body Site: Hip Mental Status/Objective Patient Orientation: Person, Place, Time, Situation Attachments: Nichole Catheter, IV ADL-Treatment Therapy Code Descriptions/Definitions Functional [place] Measure: 0=Not Assessed/NA 4=Minimal Assistance 1=Total Assistance 5=Supervision or Setup 2=Maximal Assistance 6=Modified [place] 3=Moderate Assistance 7=Complete IndependenceSCALE: Activities may be completed with or without assistive devices. 2-Ogpsorbnhs-cmckuqu completes the activity by him/herself with no assistance from a helper. 5-Set-up or Clean-up Assistance-helper sets up or cleans up; patient completes activity. [place] assists only prior to or following the activity. 4-Supervision or Touching Assistance-helper provides verbal cues and/or touching/steadying and/or contact guard assistance as patient completes activity. Assistance may be provided throughout the activity or intermittently. 3-Partial/Moderate Assistance-helper does LESS THAN HALF the effort. [place] lifts, holds or supports trunk or limbs, but provides less than half the effort. 2-Substantial/Maximal Assistance-helper does MORE THAN HALF the effort. [place] lifts or holds trunk or limbs and provides more than half the effort. 1-Aoxgmfler-hshqyx does ALL the effort. Patient does none of the effort to complete the activity. Or, the assistance of 2 or more helpers is required for the patient to complete the activity. If activity was not attempted, code reason: 7-Patient Refused. 9-Not Applicable-not attempted and the patient did not perform the activity before the current illness, exacerbation or injury. 10-Not Attempted due to Environmental Limitations-(lack of equipment, weather restraints, etc.). 88-Not Attempted due to Medical Conditions or Safety Concerns. Other Treatment Pt educated on UE strengthening HEP. Pt completed UE exercises with yellow theraband and yellow flex bar with emphasis on shoulder flexion, abduction and adduction; elbow flexion/extension; tobacco stripper strength. Pt requiring moderate verbal and tactile cueing for proper execution and mechanics. Education OT Patient Education: Correct positioning, Energy conservation, Home exercise program, Progress toward Goal/Update tx plan, Purpose of tx/functional activities, Rehab process, Safety issues Teaching Recipient: Patient Teaching Methods: Demonstration, Discussion Response to Teaching: Verbalize Understanding, Return Demonstration, Reinforcement Needed OT Short Term Goals Short Term Goals Time Frame: Jan 17, 2023 Eatin Oral hygiene: 5 Toileting hygiene: 5 Shower/bathe self: 3 Upper body dressin Lower body dressin Putting on/taking off footwear: 4 OT Residential Goals Sampler And Test Preparer Goals Time Frame: Jan 24, 2023 Acute change in mental status: 1 Inattention: 2 Disorganized thinkin Altered level of consciousness: 0 Eating (QC): 6 Oral Hygiene (QC): 6 Toileting Hygiene (QC): 6 Shower/Bathe Self (QC): 6 Upper Body Dressing (QC): 6 Lower Body Dressing (QC): 6 On/Off Footwear (QC): 6 1=Demonstrate adherence to instructed precautions during ADL tasks. 2=Patient will verbalize/demonstrate understanding of assistive devices/modifications for ADL. 3=Patient will improve strength/tolerance for activity to enable patient to perform ADL's. OT Education/Plan Problem List/Assessment Assessment: Decreased Activ Tolerance, Decreased Safety Aware, Decreased UE Strength, Impaired Cognition, Impaired Coordination, Impaired Funct Balance, Impaired I ADL's, Impaired Self-Care Skills Discharge Recommendations Plan/Recommendations: Continue POC Treatment Plan/Plan of Care Treatment,Training & Education: Yes Patient would benefit from OT for education, treatment and training to promote independence in ADL's, mobility, safety and/or upper extremity function for ADL's. Plan of Care: ADL Retraining, Cognitive Retraining, Concurrent Therapy, Functional Mobility, Group Exercise/Act as Ind, UE Funct Exercise/Act Treatment Duration: Feb 07, 2023 Frequency: At least 5 of 7 days/Wk (IRF) Estimated Hrs Per Day: Other (75 minutes per day ) Agreement: Yes Rehab Potential: Fair Time Start Time: 13:00 Stop Time: 13:30 DATE: Jan 10, 2023 Total Time Billed (hr/min): 30 Billed Treatment Time 1, EX 2 Kavitha Coelho OTR/L Jan 10, 2023 14:12
--- NOTE | 2023-01-10 15:27 | ST Cognitive Linguistic Eval ---
Speech Evaluation-General Medical Diagnosis Debility Onset Date: Dec 31, 2022 Therapy Diagnosis Therapy Diagnosis: Mental Status Change Precautions Precautions: Fall Precautions/Isolations: Standard Precautions Referral Referring Physician: Dr. Goodson Reason for Referral: Evaluation/Treatment Medical History Pertinent Medical History: Atrial Fib, COPD, DM, Hypothroidism Atrial Fib, COPD, DM, Hypothroidism Current History Pt reports feeling dizzy and going to bed for 2 days. Pt's nephew found him and called EMS. Pt has been hospitalized since 12/31/22. Reviewed History: Yes Social History Current Living Status: Alone Speech PLF-Current Status Prior Level of Function Pt reports independence with most ADLs. Pt states he has a woman who comes MWF to clean and cook meals for him. Pt's nephew and completes medication organization for him. Pt does drive. Subjective Pt was sitting in bedside chair and agreed to a session. Language Eval: Auditory Comprehends Simple Yes/No Ques: Functional Follows 1-Step Commands: Functional Follows Complex Directions: Mild Follows General Conversations: Functional Language Eval: Verbal Language Completes Spontaneous Greeting: Functional Requests Basic Needs: Functional States Basic Personal Info: Mild (Difficulty with recall of address) Language Evaluation: Reading Follows Simple Written Direct: Functional Language Evaluation: Writing Writes to Simple Dictation: Severe Cognitive Patient Orientation Pt oriented to year, season, [place], month, state, hospital, and floor. Pt not oriented to date, [facility], or [facility]. Objective Cognitive Domain Memory: Mild Objective Formal/Standardized Tests MMSE and bedside swallow screen Results Due to tremors, pt is unable to write, last two items on MMSE were omitted. Pt scores 18/28 on MMSE,placing him in the mild to moderate range for cognition. Pt scores 7/10 on orientation, 4/5 on attention task, 0/3 on delayed recall, 0/1 on language task, and 1/3 on following 3 step directions. Bedside swallow screen was given. Swallow appears WFL and pt does not report s/s of aspiration. Impression Pt demonstrates deficits in orientation, delayed recall, and following multi- step directions. Speech Long-Term Goals Long-Term Goals Pt will complete simple reasoning tasks to improve orientation and problem solving with 80% accuracy. Pt will demonstrate the ability to follow multi-step directions related to functional living with 80% accuracy. Pt will demonstrate recall of functional information following a short-term and long-term delay with 80% accuracy. Speech-Plan Patient/Family Goals Patient/Family Goals: To return to his home Treatment Plan Speech Therapy Treatment Plan: Continue Plan of Care Treatment Duration: Jan 10, 2023 Frequency: At least 5 of 7 days/Wk (IRF) Estimated Hrs Per Day: .5 hour per day Rehab Potential: Fair Pt/Family Agrees to Plan: Yes Time Speech Therapy Time In: 14:00 Speech Therapy Time Out: 14:30 DATE: Jan 10, 2023 Total Billed Time: 30 Billed Treatment Time 1 SPSNDCOMP 30 min Jessica Tran Jan 10, 2023 15:27
[2023-01-10] MEDS: TAMSULOSIN 0.4 MG (FLOMAX) CAP PO SCH (18:00)
[2023-01-10 20:32] VITALS: BP 138/75
[2023-01-11] MEDS: oxyCODONE IMMEDIATE RELEASE 5 MG TABLET PO PRN ×2 (05:49→21:50)
[2023-01-11] MEDS: CATHETER FLUSH 10 ML SYR IVP SCH ×3 (05:49→21:02)
[2023-01-11] MEDS: PRIMIDONE 250MG TABLET PO SCH (05:49)
[2023-01-11] MEDS: LEVOTHYROXINE 75 MCG TABLET PO SCH (05:49)
--- NOTE | 2023-01-11 07:37 | Occupational Ther Daily Note ---
OT Current Status-Daily Note Subjective Pt. alert laying in bed, No c/o pain, Pt. agreed to therapy. Mental Status/Objective Patient Orientation: Person, Place, Time, Situation Attachments: Nichole Catheter ADL-Treatment Pt. IND with bed mobility from supine to EOB. CGA x2 for safety with sit to stands. Min A x2 with SPT from EOB to w/c using FWW. Mod A with SPT from w/c to recliner. Pt takes increased time to complete tasks on own due to tremors. After session, pt in recliner with call light and phone in reach and all needs met. Therapy Code Descriptions/Definitions Functional [place] Measure: 0=Not Assessed/NA 4=Minimal Assistance 1=Total Assistance 5=Supervision or Setup 2=Maximal Assistance 6=Modified [place] 3=Moderate Assistance 7=Complete IndependenceSCALE: Activities may be completed with or without assistive devices. 4-Tamqwzzlem-nwftfdn completes the activity by him/herself with no assistance from a helper. 5-Set-up or Clean-up Assistance-helper sets up or cleans up; patient completes activity. [place] assists only prior to or following the activity. 4-Supervision or Touching Assistance-helper provides verbal cues and/or touching/steadying and/or contact guard assistance as patient completes activity. Assistance may be provided throughout the activity or intermittently. 3-Partial/Moderate Assistance-helper does LESS THAN HALF the effort. [place] lifts, holds or supports trunk or limbs, but provides less than half the effort. 2-Substantial/Maximal Assistance-helper does MORE THAN HALF the effort. [place] lifts or holds trunk or limbs and provides more than half the effort. 4-Tnndrwwtn-hhcsco does ALL the effort. Patient does none of the effort to compl ete the activity. Or, the assistance of 2 or more helpers is required for the patient to complete the activity. If activity was not attempted, code reason: 7-Patient Refused. 9-Not Applicable-not attempted and the patient did not perform the activity before the current illness, exacerbation or injury. 10-Not Attempted due to Environmental Limitations-(lack of equipment, weather restraints, etc.). 88-Not Attempted due to Medical Conditions or Safety Concerns. Eating (QC): 5 (Assist with opening packets and lids. Uses regular utensil eat.) Oral Hygiene (QC): 5 (Pt. able to complete grooming/oral hygiene while sitting at sink. Required assist with squeezing toothpaste onto toothbrush due tremors. ) OT Short Term Goals Short Term Goals Time Frame: Jan 17, 2023 Eatin Oral hygiene: 5 Toileting hygiene: 5 Shower/bathe self: 3 Upper body dressin Lower body dressin Putting on/taking off footwear: 4 OT Skilled Nursing Goals Unit Clerk Goals Time Frame: Jan 24, 2023 Acute change in mental status: 1 Inattention: 2 Disorganized thinkin Altered level of consciousness: 0 Eating (QC): 6 Oral Hygiene (QC): 6 Toileting Hygiene (QC): 6 Shower/Bathe Self (QC): 6 Upper Body Dressing (QC): 6 Lower Body Dressing (QC): 6 On/Off Footwear (QC): 6 1=Demonstrate adherence to instructed precautions during ADL tasks. 2=Patient will verbalize/demonstrate understanding of assistive d evices/modifications for ADL. 3=Patient will improve strength/tolerance for activity to enable patient to perform ADL's. OT Education/Plan Problem List/Assessment Assessment: Decreased Safety Aware, Decreased UE Strength, Impaired Funct Balance, Impaired Self-Care Skills Discharge Recommendations Plan/Recommendations: Continue POC Treatment Plan/Plan of Care Patient would benefit from OT for education, treatment and training to promote independence in ADL's, mobility, safety and/or upper extremity function for ADL's. Plan of Care: ADL Retraining, Cognitive Retraining, Concurrent Therapy, Functional Mobility, Group Exercise/Act as Ind, UE Funct Exercise/Act Treatment Duration: Feb 07, 2023 Frequency: At least 5 of 7 days/Wk (IRF) Estimated Hrs Per Day: Other (75 minutes per day ) Agreement: Yes Rehab Potential: Fair Time Start Time: 07:00 Stop Time: 08:15 DATE: Jan 11, 2023 Total Time Billed (hr/min): 75 Billed Treatment Time 1 visit- ADL 5 (75 mins) BRIA LISA Jan 11, 2023 07:37
[2023-01-11 08:00] VITALS: BP 110/67
--- NOTE | 2023-01-11 08:03 | Individualized Plan of Care ---
Individualized Plan of Care Rehab Nursing IPOC Order Admission Date Jan 08, 2023 at 12:11 Current Orders Orders Admission Order(Inpt,Obs,Sdc) (01/08/23 07:33) Vital Signs: Per Unit Policy ( 08,16,00 (01/08/23 07:33) Joao Mccain 09,21 (01/08/23 07:33) Sequential Compression Device [id number] (01/08/23 07:33) Sports Journalist-Inpt Rehab Con (01/08/23 07:33) Rehab Nursing Orders-Ipoc (01/08/23 07:33) Physical Therapy Rehab Orders (01/08/23 07:33) Occupational Therapy Rehab Ord (01/08/23 07:33) Speech Therapy Rehab Orders (01/08/23 07:33) Cbc And Automated Diff (01/09/23 06:00) Comprehensive Metabolic Panel (01/09/23 06:00) Precautions (Aru) (01/08/23 07:33) Weekly Weight WEEK (01/08/23 07:33) Rehab-Intensity Of Therapy (01/08/23 07:33) Initiate Admission Nursing Pro .admission (01/08/23 07:33) Calcium Carbonate Chew Tablet (Calcium C (01/08/23 07:45) Diphenhydramine Tablet (Diphenhydramine (01/08/23 07:45) Docusate Sodium Capsule (Docusate Sodium (01/08/23 09:00) Docusate Sodium Capsule (Docusate Sodium (01/08/23 07:45) Bisacodyl Suppository (Bisacodyl Supposi (01/08/23 07:45) Lactulose Oral Solution (Enulose Oral So (01/08/23 07:45) Na Phos/Na Biphos Adult Enema (Na Phos/N (01/08/23 07:45) Guaifenesin/Codeine Syrup (Guaifenesin/C (01/08/23 07:45) Loperamide Capsule (Loperamide Capsule) (01/08/23 07:45) Melatonin Tablet (Melatonin Tablet) (01/08/23 07:45) Polyethylene Glycol Powder (Polyethylen (01/08/23 09:00) Ondansetron Oral Dissolve Tab (Ondanset (01/08/23 07:45) Senna W/Docusate Tablet (Senna W/Docusat (01/08/23 09:00) Acetaminophen Tablet (Acetaminophen Ta (01/08/23 07:45) Initiate Admission Nursing Pro .admission (01/08/23 07:33) Admission Arrival Bed Request (01/08/23 12:11) Code/Resuscitation (01/08/23 15:35) Cho 60g/M 1snack (16-2000 Philip) (01/08/23 Dinner) Apixaban Tablet (Apixaban Tablet) (01/08/23 21:00) Aspirin Enteric Coated Tablet (Ecotrin T (01/09/23 09:00) Carbamide Peroxide Ear Drops (Carbamide (01/08/23 15:45) Docusate Sodium Capsule (Docusate Sodium (01/08/23 21:00) Bisacodyl Suppository (Bisacodyl Supposi (01/08/23 15:45) Lactulose Oral Solution (Enulose Oral So (01/08/23 15:45) Finasteride Tablet (Finasteride Tablet) (01/09/23 09:00) Levothyroxine Tablet (Levothyroxine Tabl (01/09/23 06:30) Melatonin Tablet (Melatonin Tablet) (01/08/23 15:45) Polyethylene Glycol Powder (Polyethylen (01/08/23 15:45) Antacid Suspension (Antacid Suspension (01/08/23 15:45) Primidone Tablet (Primidone Tablet) (01/09/23 07:00) Tamsulosin Capsule (Flomax Capsule) (01/08/23 18:00) Acetaminophen Tablet (Acetaminophen Ta (01/08/23 15:45) Ondansetron Injection (Ondansetron Inj (01/08/23 15:45) Ondansetron Oral Dissolve Tab (Ondanset (01/08/23 15:45) Ezetimibe Tablet (Ezetimibe Tablet) (01/08/23 21:00) Oxycodone Immediate Rel Tablet (Oxycodon (01/08/23 15:45) Mat Initiate Protocol (01/08/23 15:35) Insulin Aspart (Per Unit) (Insulin Aspar (01/08/23 16:00) Sodium Chloride Flush (Catheter Flush Sy (01/09/23 16:15) Sodium Chloride Flush (Catheter Flush Sy (01/09/23 22:00) Patient Visit (01/10/23 ) Pt Eval Moderate Complexity (01/10/23 ) Gait Training, Ea 15 Min (01/10/23 ) Functional Activities, Ea 15 (01/10/23 ) Patient Visit (01/10/23 ) Speech Sound Lang Comp (01/10/23 ) Patient Visit (01/11/23 ) Gait Training, Ea 15 Min (01/11/23 ) Exercise Therap, Ea 15 Min (01/11/23 ) Wheelchair Mgmt/Propulsn 15min (01/11/23 ) Patient Visit (01/11/23 ) Exercise Therap, Ea 15 Min (01/11/23 ) Rehab Nursing Orders: Ongoing Assess. of Cognitive Status, Ongoing Assess. of Function Status, Bladder Management, Bladder Scan, Bladder Training, Bowel Management, Bowel Training, Disease Management & Educaiton, DVT Prophylaxis, Fall Prevention, Fluid/Electrolyte/Nutrition Mgmt, Infection Prevention, Medication Management & Education, Management of Risks & Complications, Management of Skin Intergrity, Nutrition Management, Pain Management, Patient/Family Support, Safety Management, Wound Management Intensity of Therapy to be met Patient to be seen: Min.3h per day/5 of 7d PT IPOC Problem List: Activity Tolerance, Functional Strength, Safety, Balance, Gait, Transfer, Bed Mobility Treatment Plan: Continue Plan of Care Bed Mobility, Concurrent Therapy, Education, Functional Activity Christelle, Functional Strength, Group Therapy, Gait, Safety, Therapeutic Exercise, Transfers Treatment Duration: Jan 24, 2023 Frequency: At least 5 of 7 days/Wk (IRF) Estimated Hrs Per Day: 1.5 hours per day OT IPOC Problems: Decreased Safety Aware, Decreased UE Strength, Impaired Funct Balance, Impaired Self-Care Skills OT Treatment, Training and Edu: Yes Plan of Care: ADL Retraining, Cognitive Retraining, Concurrent Therapy, Functional Mobility, Group Exercise/Act as Ind, UE Funct Exercise/Act Treatment Duration: Feb 07, 2023 Frequency: At least 5 of 7 days/Wk (IRF) Estimated Hrs Per Day: Other (75 minutes per day ) ST IPOC Speech Therapy Treatment Plan: Continue Plan of Care Treatment Duration: Jan 10, 2023 Frequency: At least 5 of 7 days/Wk (IRF) Estimated Hrs Per Day: .5 hour per day Sports Journalist/Case Mgmt Sports Journalist/Case Managemen: Discharge Planning Dietitian/Direct Sales Consultant Dietitian/Direct Sales Consultant to monitor nutritional status and make changes and/or recommendations as needed and work with speech pathology on dietary upgrades as the occur. Physician IPOC Medical Issues being managed closely and that require the 24 hour availability of a physician: Recent confusion along with falls and edema and overall decompensation and suspicion for tremor of Parkinson's will require close monitoring for increased risk for decompensation Medical Issues: Bowel/Bladder Function, DVT Prophylaxis, Falls Precautions, Fluid/Electrolyte/Nutrition Balance, Infection Protection, Pain Management Brief Synthesis of Preadmission Screen, Post-Admission Evaluation, and Therapy Evaluations: PT OT will focus on regaining function along with increasing stamina for ambulation and help increase independence of ADL's Medical Prognosis: Good Anticipated Length of Stay: 10 days EVELYN CASSIDY DO Jan 11, 2023 08:03
--- NOTE | 2023-01-11 08:08 | PM&R Progress Note ---
Subjective HPI/CC On Admission Date Seen by Provider: Jan 11, 2023 Time Seen by Provider: 12:00 Subjective/Events-last exam 01/11/2023: Patient doing well Denies any new problems No falls Edema much improved 01/10/2023: Doing well Edema still present Labs stable No falls Participation is good 01/09/2023: Patient doing about the same Reviewed meds and labs No falls Pain is pretty well controlled Labs reviewed No hypoxia Review of Systems General: Fatigue, Malaise Objective Exam Vital Signs Vital Signs Date Time Temp Pulse Resp B/P (MAP) Pulse Ox O2 Delivery O2 Flow Rate FiO2 01/11/23 20:55 Room Air 01/11/23 19:46 35.9 63 20 121/72 (88) 94 Capillary Refill : General Appearance: No Apparent Distress, WD/WN, Anxious, Chronically ill HEENT: PERRL/EOMI, Normal ENT Inspection, Pharynx Normal Neck: Full Range of Motion, Normal Inspection, Non Tender, Supple, Carotid Bruit Respiratory: Chest Non Tender, Lungs Clear, Normal Breath Sounds, No Accessory Muscle Use, No Respiratory Distress Cardiovascular: No Edema, No Gallop, No JVD, No Murmur, Normal Peripheral Pulses, Irregularly Irregular Gastrointestinal: Normal Bowel Sounds, No Organomegaly, No Pulsatile Mass, Non Tender, Soft Back: Normal Inspection, No CVA Tenderness, No Vertebral Tenderness Extremity: Normal Capillary Refill, Normal Inspection, Normal Range of Motion, Non Tender, No Calf Tenderness, No Pedal Edema Neurologic/Psychiatric: Alert, Oriented x3, Abnormal Gait, Depressed Affect, Motor Weakness (generalized 3/5) Skin: Normal Color, Warm/Dry Lymphatic: No Adenopathy Results/Procedures Lab Patient resulted labs reviewed. FIM Transfers Therapy Code Descriptions/Definitions Functional [place] Measure: 0=Not Assessed/NA 4=Minimal Assistance 1=Total Assistance 5=Supervision or Setup 2=Maximal Assistance 6=Modified [place] 3=Moderate Assistance 7=Complete IndependenceSCALE: Activities may be completed with or without assistive devices. 2-Nznuzgyfei-wisyeao completes the activity by him/herself with no assistance from a helper. 5-Set-up or Clean-up Assistance-helper sets up or cleans up; patient completes activity. [place] assists only prior to or following the activity. 4-Supervision or Touching Assistance-helper provides verbal cues and/or touching/steadying and/or contact guard assistance as patient completes activity. Assistance may be provided throughout the activity or intermittently. 3-Partial/Moderate Assistance-helper does LESS THAN HALF the effort. [place] lifts, holds or supports trunk or limbs, but provides less than half the effort. 2-Substantial/Maximal Assistance-helper does MORE THAN HALF the effort. [place] lifts or holds trunk or limbs and provides more than half the effort. 9-Fszkzhcyj-sxuisl does ALL the effort. Patient does none of the effort to complete the activity. Or, the assistance of 2 or more helpers is required for the patient to complete the activity. If activity was not attempted, code reason: 7-Patient Refused. 9-Not Applicable-not attempted and the patient did not perform the activity before the current illness, exacerbation or injury. 10-Not Attempted due to Environmental Limitations-(lack of equipment, weather restraints, etc.). 88-Not Attempted due to Medical Conditions or Safety Concerns. Roll Left to Right (QC): 6 ((I) using bed rail) Sit to Lying (QC): 6 Sit to Stand (QC): 3 (min (A) from recliner and EOB, cues for hand placement) Chair/Xxd-wg-Abimm Xfer(QC): 3 (min (A) /c FWW) Car Transfer (QC): 3 (min (A) /c cues) Gait Training Walk 10 feet (QC): 3 (min (A) /c FWW. Has tremors when walking that were not apparent with LE MMT nor bed mobility.) Walk 50 ft with 2 Turns(QC): 3 (Min (A) /c FWW - tremors noted) Walk 150 ft (QC): 88 (unable to meet distance due to fatigue) Walking 10ft/uneven surface-QC: 3 (Mod (A) to step up onto uneven surface) Gait Assistive Device: FWW Wheelchair Training Does the Pt Use a Wheelchair?: Yes Distance: 20' SBA to propel /c (B) UE's, distance limited by fatgiue Wheel 50 ft with 2 turns (QC): 88 (unable to meet distance) Wheel 150 ft (QC): 88 (unable to meet distance) Type of Wheelchair: Manual Stair Training 1 Step (curb) (QC): 1 (mod (A) of 2 for safety - froze at front of step and required extensive cues, assist with walker due to tremors, and assist to accomplish) 4 Steps (QC): 88 12 Steps (QC): 88 Balance Picking up an Object (QC): 3 (min (A) using cook at school) ADL-Treatment Eating (QC): 5 (Needs assist with opening packets and lids. Pt. IND with eating.) Oral Hygiene (QC): 4 (sitting at sink ) Shower/Bathe Self (QC): 2 Upper Body Dressing (QC): 4 Lower Body Dressing (QC): 3 (required assistance threading RLE; able to thread LLE and pull up pants) On/Off Footwear (QC): 3 (to don/doff socks and compression socks) Toileting Hygiene (QC): 3 (for thoroughness ) Assessment/Plan Assessment and Plan Assess & Plan/Chief Complaint Weakness Debility Confusion- resolved CT head without acute abnormalities CT spine without cause for weakness Aspirin Ezetimibe MRI brain- no evidence of stroke Carotid ultrasound mild disease noted Echo with negative bubble study PT/OT IRF evaluated and accepted for Tuesday Chest pain Elevated BNP Chronic HFpEF Chest pain resoved Troponin negative BNP elevated Echo with EF 70-75% HTN HLD AFib Pacemaker BPH Obesity Continue home meds as able Plan: PT OT Monitor BP Increase mobility 01/09/2023: Supportive care Monitor blood pressure closely 01/10/2023: Continue treatment Monitor closely 01/11/2023: Supportive care Monitor closely (1) Debilitated patient Status: Acute EVELYN CASSIDY DO Jan 11, 2023 08:08
[2023-01-11] MEDS: DOCUSATE SODIUM 100 MG CAPSULE PO SCH ×2 (08:39→21:00)
[2023-01-11] MEDS: SENNA W/DOCUSATE TABLET PO SCH ×2 (08:39→21:00)
[2023-01-11] MEDS: ASPIRIN enteric coated 81MG TABLET PO SCH (08:39)
[2023-01-11] MEDS: FINASTERIDE 5 MG TABLET PO SCH (08:39)
[2023-01-11] MEDS: APIXABAN 5 MG TABLET PO SCH ×2 (08:39→21:00)
--- NOTE | 2023-01-11 12:15 | Physical Therapy Daily Note ---
PT Daily Note-Current Subjective Pt sitting in recliner upon arrival. Pt agrees to PT. Pain Location: No Pain Reported Section J - Health Conditions 1. Rarely or not at all 2. Occasionally 3. Frequently 4. Almost constantly 8. Unable to answer Pain Effect on Sleep: 1 Pain Interference with Therapy: 1 Pain Interference w/Day-to-Day: 1 Mental Status Patient Orientation: Person, Place, Situation Attachments: [place] Catheter Transfers SCALE: Activities may be completed with or without assistive devices. 4-Elbaopgxch-rbmddbe completes the activity by him/herself with no assistance from a helper. 5-Set-up or Clean-up Assistance-helper sets up or cleans up; patient completes activity. [place] assists only prior to or following the activity. 4-Supervision or Touching Assistance-helper provides verbal cues and/or touching/steadying and/or contact guard assistance as patient completes activity. Assistance may be provided throughout the activity or intermittently. 3-Partial/Moderate Assistance-helper does LESS THAN HALF the effort. [place] lifts, holds or supports trunk or limbs, but provides less than half the effort. 2-Substantial/Maximal Assistance-helper does MORE THAN HALF the effort. [place] lifts or holds trunk or limbs and provides more than half the effort. 2-Jqfuzngqm-bngpqy does ALL the effort. Patient does none of the effort to complete the activity. Or, the assistance of 2 or more helpers is required for the patient to complete the activity. If activity was not attempted, code reason: 7-Patient Refused. 9-Not Applicable-not attempted and the patient did not perform the activity before the current illness, exacerbation or injury. 10-Not Attempted due to Environmental Limitations-(lack of equipment, weather restraints, etc.). 88-Not Attempted due to Medical Conditions or Safety Concerns. Sit to Stand (QC): 4 (CGA) Weight Bearing Right Lower Extremity: Right Full Weight Bearing Left Lower Extremity: Left Full Weight Bearing Gait Training Does the Patient Walk?: Yes Distance: 90' Walk 10 feet (QC): 4 (CGA) Walk 50 ft with 2 Turns(QC): 4 (CGA) Walk 150 ft (QC): 4 (CGA) Gait Persons Needed: 1 Gait Assistive Device: FWW Wheelchair Training Does the Pt Use a Wheelchair?: Yes Wheel 50 ft with 2 turns (QC): 5 (SBA) Type of Wheelchair: Manual Exercises NuStep Minutes: 10 NuStep Workload: 4 Treatments TF from recliner to standing at [facility] then amb in hallway at [facility] using FWW. Pt uses NuStep then takes short RB before TF to w/c 2/2 fatigue. Pt propels w/c in hallway and TF back to reclienr in room for lunch. All needs met, call light next to pt. Assessment Pt needs VC for safety & sequencing as well as encouragement to complete tasks as indep. as possible (pt like to have staff help w/o trying). PT Agricultural Engineering Teacher Goals Jail Goals PT Agricultural Engineering Teacher Goals Time Frame: Jan 24, 2023 Roll Left & Right (QC): 6 Sit to Lying (QC): 6 Lying-Sitting on Side/Bed(QC): 6 Sit to Stand (QC): 6 Chair/Jiz-gu-Wuqop Xfer(QC): 6 (/c FWW) Toilet Transfer (QC): 6 Car Transfer (QC): 5 Does the Patient Walk: Yes Walk 10 feet (QC): 6 (/c FWW) Walk 50ft with 2 Turns (QC): 6 (/c FWW) Walk 150 ft (QC): 6 (/c FWW) Walking 10ft on Uneven Surface: 4 (SBA /c FWW) 1 Step (curb) (QC): 4 (CGA /c cues and FWW) 4 Steps (QC): 4 (/c (B) rails) 12 Steps (QC): 4 (/c (B) rails) Picking up an Object (QC): 5 (/c pickle pumper) Does the Pt use WC or Scooter?: Yes Wheel 50 feet with 2 turns (QC: 6 Type: Manual Wheel 150 feet: 6 Type: Manual PT Plan Problem List Problem List: Activity Tolerance, Safety Treatment/Plan Treatment Plan: Continue Plan of Care Treatment Plan: Bed Mobility, Concurrent Therapy, Education, Functional Activity Christelle, Functional Strength, Group Therapy, Gait, Safety, Therapeutic Exercise, Transfers Treatment Duration: Jan 24, 2023 Frequency: At least 5 of 7 days/Wk (IRF) Estimated Hrs Per Day: 1.5 hours per day Patient and/or Family Agrees t: Yes Safety Risks/Education Patient Education: Gait Training, Transfer Techniques, Correct Positioning, Safety Issues Teaching Recipient: Patient Teaching Methods: Discussion Response to Teaching: Verbalize Understanding Time Time In: 1100 Time Out: 1145 DATE: Jan 11, 2023 Total Billed Treatment Time: 45 Total Billed Treatment 1, GT (15m), EX (15m) & WCH (15m) AARON BELLA BULB PACKER Jan 11, 2023 12:15
[2023-01-11 14:02] VITALS: BP 110/67
--- NOTE | 2023-01-11 15:21 | Occupational Ther Daily Note ---
OT Current Status-Daily Note Subjective Pt alert, sitting in recliner watching basketball. Pt reluctantly agrees to therapy due to wanting to watch the game. No c/o pain. Mental Status/Objective Patient Orientation: Person, Place, Time, Situation ADL-Treatment Therapy Code Descriptions/Definitions Functional [place] Measure: 0=Not Assessed/NA 4=Minimal Assistance 1=Total Assistance 5=Supervision or Setup 2=Maximal Assistance 6=Modified [place] 3=Moderate Assistance 7=Complete IndependenceSCALE: Activities may be completed with or without assistive devices. 9-Guokurddig-lfbrbsk completes the activity by him/herself with no assistance from a helper. 5-Set-up or Clean-up Assistance-helper sets up or cleans up; patient completes activity. [place] assists only prior to or following the activity. 4-Supervision or Touching Assistance-helper provides verbal cues and/or touching/steadying and/or contact guard assistance as patient completes activity. Assistance may be provided throughout the activity or intermittently. 3-Partial/Moderate Assistance-helper does LESS THAN HALF the effort. [place] lifts, holds or supports trunk or limbs, but provides less than half the effort. 2-Substantial/Maximal Assistance-helper does MORE THAN HALF the effort. [place] lifts or holds trunk or limbs and provides more than half the effort. 3-Amxgvbmrv-dbezxx does ALL the effort. Patient does none of the effort to complete the activity. Or, the assistance of 2 or more helpers is required for the patient to complete the activity. If activity was not attempted, code reason: 7-Patient Refused. 9-Not Applicable-not attempted and the patient did not perform the activity before the current illness, exacerbation or injury. 10-Not Attempted due to Environmental Limitations-(lack of equipment, weather restraints, etc.). 88-Not Attempted due to Medical Conditions or Safety Concerns. Other Treatment Pt given HEP for B UE theraband exercises, completed with red theraband though requested to continue to use yellow. Skilled instruction for correct technique and positioning required. 5 exercises 1 set 10 reps then pt stopped exercises after 1 set. Discussed with pt about hand tremors and different techniques to use to complete fine motor tasks. Pt stated that he had tremors prior to this hospital stay. Pt has small walk-in shower and states that he will have sponge bathes instead of using the shower at home due to being too small. Pt wanting to get back to basketball game gave short answers and decreased attention to rest of therapy. After session, pt sitting in recliner with call light/phone in reach. All needs met in room. Education OT Patient Education: Exercise program, Modified ADL techniques, Use of adapted equipment Teaching Recipient: Patient Teaching Methods: Demonstration, Handout, Discussion Response to Teaching: Verbalize Understanding, Return Demonstration, Reinforcement Needed OT Short Term Goals Short Term Goals Time Frame: Jan 17, 2023 Eatin Oral hygiene: 5 Toileting hygiene: 5 Shower/bathe self: 3 Upper body dressin Lower body dressin Putting on/taking off footwear: 4 OT Tapper Operator Goals Shelter Goals Time Frame: Jan 24, 2023 Acute change in mental status: 1 Inattention: 2 Disorganized thinkin Altered level of consciousness: 0 Eating (QC): 6 Oral Hygiene (QC): 6 Toileting Hygiene (QC): 6 Shower/Bathe Self (QC): 6 Upper Body Dressing (QC): 6 Lower Body Dressing (QC): 6 On/Off Footwear (QC): 6 1=Demonstrate adherence to instructed precautions during ADL tasks. 2=Patient will verbalize/demonstrate understanding of assistive devices/modifications for ADL. 3=Patient will improve strength/tolerance for activity to enable patient to perform ADL's. OT Education/Plan Problem List/Assessment Assessment: Decreased Activ Tolerance, Decreased UE Strength, Impaired Self- Care Skills Discharge Recommendations Plan/Recommendations: Continue POC Treatment Plan/Plan of Care Patient would benefit from OT for education, treatment and training to promote independence in ADL's, mobility, safety and/or upper extremity function for ADL's. Plan of Care: ADL Retraining, Cognitive Retraining, Concurrent Therapy, Functional Mobility, Group Exercise/Act as Ind, UE Funct Exercise/Act Treatment Duration: Feb 07, 2023 Frequency: At least 5 of 7 days/Wk (IRF) Estimated Hrs Per Day: Other (75 minutes per day ) Agreement: Yes Rehab Potential: Fair Time Start Time: 14:50 Stop Time: 15:20 DATE: Jan 11, 2023 Total Time Billed (hr/min): 30 Billed Treatment Time 1 visit-FA 1 (10 min) EX 1 (20 min) BRIA LISA Jan 11, 2023 15:21
--- NOTE | 2023-01-11 15:41 | Physical Therapy Daily Note ---
PT Daily Note-Current Subjective Pt sitting in recliner after lunch upon arrival. Pt agrees to PT for Ex. Pain Location: No Pain Reported Section J - Health Conditions 1. Rarely or not at all 2. Occasionally 3. Frequently 4. Almost constantly 8. Unable to answer Pain Effect on Sleep: 1 Pain Interference with Therapy: 1 Pain Interference w/Day-to-Day: 1 Mental Status Patient Orientation: Person, Place Attachments: [place] Catheter Transfers SCALE: Activities may be completed with or without assistive devices. 0-Xrpkhefrvk-guvkynn completes the activity by him/herself with no assistance from a helper. 5-Set-up or Clean-up Assistance-helper sets up or cleans up; patient completes activity. [place] assists only prior to or following the activity. 4-Supervision or Touching Assistance-helper provides verbal cues and/or touching/steadying and/or contact guard assistance as patient completes activity. Assistance may be provided throughout the activity or intermittently. 3-Partial/Moderate Assistance-helper does LESS THAN HALF the effort. [place] lifts, holds or supports trunk or limbs, but provides less than half the effort. 2-Substantial/Maximal Assistance-helper does MORE THAN HALF the effort. [place] lifts or holds trunk or limbs and provides more than half the effort. 7-Oxsfpxlke-lxkbwn does ALL the effort. Patient does none of the effort to complete the activity. Or, the assistance of 2 or more helpers is required for the patient to complete the activity. If activity was not attempted, code reason: 7-Patient Refused. 9-Not Applicable-not attempted and the patient did not perform the activity before the current illness, exacerbation or injury. 10-Not Attempted due to Environmental Limitations-(lack of equipment, weather restraints, etc.). 88-Not Attempted due to Medical Conditions or Safety Concerns. Weight Bearing Right Lower Extremity: Right Full Weight Bearing Left Lower Extremity: Left Full Weight Bearing Exercises Supine Ex: Ankle pumps, Quad Set, Glut sets, Heel Slides, Hip abd/add Supine Reps: 15 Seated Therapy Exercises: Ankle pumps, Long arc quads, Hip flexion, Hamstring Curls, Hip abd/add Seated Reps: 15 Treatments Pt completes written HEP for Supine & Seated Ex w/RB as needed. Pt resting at end of tx w/all needs met, call light in hand. Assessment Current Status: Fair Progress Pt needs encouragement to participate as pt states he has nephew coming to visit soon. EMULSION COATER reminds pt that pt still has tx scheduled this afternoon and that is why pt is on ARU. PT Industrial Service Technician Goals Industrial Service Technician Goals PT Fdc Goals Time Frame: Jan 24, 2023 Roll Left & Right (QC): 6 Sit to Lying (QC): 6 Lying-Sitting on Side/Bed(QC): 6 Sit to Stand (QC): 6 Chair/Iqw-gu-Mwfoy Xfer(QC): 6 (/c FWW) Toilet Transfer (QC): 6 Car Transfer (QC): 5 Does the Patient Walk: Yes Walk 10 feet (QC): 6 (/c FWW) Walk 50ft with 2 Turns (QC): 6 (/c FWW) Walk 150 ft (QC): 6 (/c FWW) Walking 10ft on Uneven Surface: 4 (SBA /c FWW) 1 Step (curb) (QC): 4 (CGA /c cues and FWW) 4 Steps (QC): 4 (/c (B) rails) 12 Steps (QC): 4 (/c (B) rails) Picking up an Object (QC): 5 (/c television news anchor) Does the Pt use WC or Scooter?: Yes Wheel 50 feet with 2 turns (QC: 6 Type: Manual Wheel 150 feet: 6 Type: Manual PT Plan Problem List Problem List: Activity Tolerance, Functional Strength Treatment/Plan Treatment Plan: Continue Plan of Care Treatment Plan: Bed Mobility, Concurrent Therapy, Education, Functional A ctivity Christelle, Functional Strength, Group Therapy, Gait, Safety, Therapeutic Exercise, Transfers Treatment Duration: Jan 24, 2023 Frequency: At least 5 of 7 days/Wk (IRF) Estimated Hrs Per Day: 1.5 hours per day Patient and/or Family Agrees t: Yes Safety Risks/Education Patient Education: Correct Positioning Teaching Recipient: Patient Teaching Methods: Discussion Response to Teaching: Verbalize Understanding Time Time In: 1300 Time Out: 1330 DATE: Jan 11, 2023 Total Billed Treatment Time: 30 Total Billed Treatment 1, EX x2 (30m) AARON BELLA PTA Jan 11, 2023 15:41
[2023-01-11] MEDS: TAMSULOSIN 0.4 MG (FLOMAX) CAP PO SCH (17:04)
[2023-01-11 19:46] VITALS: BP 121/72
[2023-01-12] MEDS: oxyCODONE IMMEDIATE RELEASE 5 MG TABLET PO PRN ×3 (03:16→17:59)
--- NOTE | 2023-01-12 05:34 | PM&R Progress Note ---
Subjective HPI/CC On Admission Date Seen by Provider: Jan 12, 2023 Time Seen by Provider: 13:00 Subjective/Events-last exam 01/12/2023: Patient doing well Reviewed meds and labs No falls No pain Edema improved 01/11/2023: Patient doing well Denies any new problems No falls Edema much improved 01/10/2023: Doing well Edema still present Labs stable No falls Participation is good 01/09/2023: Patient doing about the same Reviewed meds and labs No falls Pain is pretty well controlled Labs reviewed No hypoxia Review of Systems General: Fatigue, Malaise Objective Exam Vital Signs Vital Signs Date Time Temp Pulse Resp B/P (MAP) Pulse Ox O2 Delivery O2 Flow Rate FiO2 01/12/23 09:59 Room Air 01/12/23 09:54 93 01/12/23 08:00 36.5 50 18 123/75 (91) Capillary Refill : General Appearance: No Apparent Distress, WD/WN, Anxious, Chronically ill HEENT: PERRL/EOMI, Normal ENT Inspection, Pharynx Normal Neck: Full Range of Motion, Normal Inspection, Non Tender, Supple, Carotid Bruit Respiratory: Chest Non Tender, Lungs Clear, Normal Breath Sounds, No Accessory Muscle Use, No Respiratory Distress Cardiovascular: No Edema, No Gallop, No JVD, No Murmur, Normal Peripheral Pulses, Irregularly Irregular Gastrointestinal: Normal Bowel Sounds, No Organomegaly, No Pulsatile Mass, Non Tender, Soft Back: Normal Inspection, No CVA Tenderness, No Vertebral Tenderness Extremity: Normal Capillary Refill, Normal Inspection, Normal Range of Motion, Non Tender, No Calf Tenderness, No Pedal Edema Neurologic/Psychiatric: Alert, Oriented x3, Abnormal Gait, Depressed Affect, Motor Weakness (generalized 3/5) Skin: Normal Color, Warm/Dry Lymphatic: No Adenopathy Results/Procedures Lab Patient resulted labs reviewed. FIM Transfers Therapy Code Descriptions/Definitions Functional [place] Measure: 0=Not Assessed/NA 4=Minimal Assistance 1=Total Assistance 5=Supervision or Setup 2=Maximal Assistance 6=Modified [place] 3=Moderate Assistance 7=Complete IndependenceSCALE: Activities may be completed with or without assistive devices. 9-Sizqtvrksu-eyqtxcb completes the activity by him/herself with no assistance from a helper. 5-Set-up or Clean-up Assistance-helper sets up or cleans up; patient completes activity. [place] assists only prior to or following the activity. 4-Supervision or Touching Assistance-helper provides verbal cues and/or touching/steadying and/or contact guard assistance as patient completes activity. Assistance may be provided throughout the activity or intermittently. 3-Partial/Moderate Assistance-helper does LESS THAN HALF the effort. [place] lift s, holds or supports trunk or limbs, but provides less than half the effort. 2-Substantial/Maximal Assistance-helper does MORE THAN HALF the effort. [place] lifts or holds trunk or limbs and provides more than half the effort. 8-Vohvcphbl-kqmnrb does ALL the effort. Patient does none of the effort to complete the activity. Or, the assistance of 2 or more helpers is required for the patient to complete the activity. If activity was not attempted, code reason: 7-Patient Refused. 9-Not Applicable-not attempted and the patient did not perform the activity before the current illness, exacerbation or injury. 10-Not Attempted due to Environmental Limitations-(lack of equipment, weather restraints, etc.). 88-Not Attempted due to Medical Conditions or Safety Concerns. Roll Left to Right (QC): 6 ((I) using bed rail) Sit to Lying (QC): 6 Sit to Stand (QC): 4 (CGA) Chair/Tif-pa-Dbtmf Xfer(QC): 3 (min (A) /c FWW) Car Transfer (QC): 3 (min (A) /c cues) Gait Training Does the Patient Walk?: Yes Distance: 90' Walk 10 feet (QC): 4 (CGA) Walk 50 ft with 2 Turns(QC): 4 (CGA) Walk 150 ft (QC): 4 (CGA) Walking 10ft/uneven surface-QC: 3 (Mod (A) to step up onto uneven surface) Gait Persons Needed: 1 Gait Assistive Device: FWW Wheelchair Training Does the Pt Use a Wheelchair?: Yes Distance: 20' SBA to propel /c (B) UE's, distance limited by fatgiue Wheel 50 ft with 2 turns (QC): 5 (SBA) Wheel 150 ft (QC): 88 (unable to meet distance) Type of Wheelchair: Manual Stair Training 1 Step (curb) (QC): 1 (mod (A) of 2 for safety - froze at front of step and required extensive cues, assist with walker due to tremors, and assist to accomplish) 4 Steps (QC): 88 12 Steps (QC): 88 Balance Picking up an Object (QC): 3 (min (A) using slack cooper) ADL-Treatment Eating (QC): 5 (Assist with opening packets and lids. Uses regular utensil eat.) Oral Hygiene (QC): 5 (Pt. able to complete grooming/oral hygiene while sitting at sink. Required assist with squeezing toothpaste onto toothbrush due tremors. ) Shower/Bathe Self (QC): 2 Upper Body Dressing (QC): 4 Lower Body Dressing (QC): 3 (required assistance threading RLE; able to thread LLE and pull up pants) On/Off Footwear (QC): 3 (to don/doff socks and compression socks) Toileting Hygiene (QC): 3 (for thoroughness ) Assessment/Plan Assessment and Plan Assess & Plan/Chief Complaint Weakness Debility Confusion- resolved CT head without acute abnormalities CT spine without cause for weakness Aspirin Ezetimibe MRI brain- no evidence of stroke Carotid ultrasound mild disease noted Echo with negative bubble study PT/OT IRF evaluated and accepted for Tuesday Chest pain Elevated BNP Chronic HFpEF Chest pain resoved Troponin negative BNP elevated Echo with EF 70-75% HTN HLD AFib Pacemaker BPH Obesity Continue home meds as able Plan: PT OT Monitor BP Increase mobility 01/09/2023: Supportive care Monitor blood pressure closely 01/10/2023: Continue treatment Monitor closely 01/11/2023: Supportive care Monitor closely 01/12/2023: Supportive care Monitor blood pressure (1) Debilitated patient Status: Acute EVELYN CASSIDY DO Jan 12, 2023 05:34
[2023-01-12] MEDS: PRIMIDONE 250MG TABLET PO SCH (06:31)
[2023-01-12] MEDS: LEVOTHYROXINE 75 MCG TABLET PO SCH (06:31)
[2023-01-12] MEDS: CATHETER FLUSH 10 ML SYR IVP SCH ×3 (06:32→21:42)
[2023-01-12 08:00] VITALS: BP 123/75
[2023-01-12] MEDS: ASPIRIN enteric coated 81MG TABLET PO SCH (08:12)
[2023-01-12] MEDS: APIXABAN 5 MG TABLET PO SCH ×2 (08:12→20:12)
[2023-01-12] MEDS: FINASTERIDE 5 MG TABLET PO SCH (08:12)
[2023-01-12] MEDS: SENNA W/DOCUSATE TABLET PO SCH ×2 (08:13→20:12)
[2023-01-12] MEDS: DOCUSATE SODIUM 100 MG CAPSULE PO SCH ×2 (08:13→20:12)
[2023-01-12] MEDS: ACETAMINOPHEN 325 MG TABLET PO PRN ×2 (08:15→20:12)
--- NOTE | 2023-01-12 08:38 | Speech Therapy Daily Note ---
Speech Daily Progress Note Subjective Date Seen by Provider: Jan 11, 2023 Time Seen by Provider: 14:00 Pt refused SALVAGE WINDER treatment this date. Objective Pt refused SALVAGE WINDER treatment this date. Assessment Assessment Current Status: Refused Treatment Treatment Plan Continue Plan of Care Speech Lye Machine Operator Goals Shelter Goals Pt will complete simple reasoning tasks to improve orientation and problem solving with 80% accuracy. Pt will demonstrate the ability to follow multi-step directions related to functional living with 80% accuracy. Pt will demonstrate recall of functional information following a short-term and long-term delay with 80% accuracy. Speech-Plan Treatment Plan Speech Therapy Treatment Plan: Continue Plan of Care Treatment Duration: Jan 10, 2023 Frequency: At least 5 of 7 days/Wk (IRF) Estimated Hrs Per Day: .5 hour per day Rehab Potential: Fair Barriers to Learning: Pt refused SALVAGE WINDER treatment this date. Time Speech Therapy Time In: 14:00 Speech Therapy Time Out: 14:00 DATE: Jan 11, 2023 Total Billed Time: 0 Billed Treatment Time Pt refused SALVAGE WINDER treatment this date. Jessica Tran Jan 12, 2023 08:38
--- NOTE | 2023-01-12 12:17 | Physical Therapy Daily Note ---
PT Daily Note-Current Subjective Pt sitting in room upon arrival. Pt agrees to PT/OT co-treat. Pain Location: No Pain Reported Section J - Health Conditions 1. Rarely or not at all 2. Occasionally 3. Frequently 4. Almost constantly 8. Unable to answer Pain Effect on Sleep: 1 Pain Interference with Therapy: 1 Pain Interference w/Day-to-Day: 1 Mental Status Patient Orientation: Person, Place, Situation Attachments: Nichole Catheter Transfers SCALE: Activities may be completed with or without assistive devices. 7-Etwkjnaxwl-vbxonon completes the activity by him/herself with no assistance from a helper. 5-Set-up or Clean-up Assistance-helper sets up or cleans up; patient completes activity. [place] assists only prior to or following the activity. 4-Supervision or Touching Assistance-helper provides verbal cues and/or touching/steadying and/or contact guard assistance as patient completes activity. Assistance may be provided throughout the activity or intermittently. 3-Partial/Moderate Assistance-helper does LESS THAN HALF the effort. [place] lifts, holds or supports trunk or limbs, but provides less than half the effort. 2-Substantial/Maximal Assistance-helper does MORE THAN HALF the effort. [place] lifts or holds trunk or limbs and provides more than half the effort. 4-Bfhryuxmk-ljcxce does ALL the effort. Patient does none of the effort to complete the activity. Or, the assistance of 2 or more helpers is required for the patient to complete the activity. If activity was not attempted, code reason: 7-Patient Refused. 9-Not Applicable-not attempted and the patient did not perform the activity before the current illness, exacerbation or injury. 10-Not Attempted due to Environmental Limitations-(lack of equipment, weather restraints, etc.). 88-Not Attempted due to Medical Conditions or Safety Concerns. Sit to Stand (QC): 3 Chair/Gvg-hx-Mapaf Xfer(QC): 3 Weight Bearing Right Lower Extremity: Right Full Weight Bearing Left Lower Extremity: Left Full Weight Bearing Gait Training Does the Patient Walk?: Yes Distance: 85', 175' Walk 10 feet (QC): 4 Walk 50 ft with 2 Turns(QC): 4 Walk 150 ft (QC): 4 Gait Persons Needed: 1 Gait Assistive Device: FWW Exercises Seated Therapy Exercises: Ankle pumps, Long arc quads, Hip flexion, Hamstring C urls, Hip abd/add, Glut set Seated Reps: 10 Treatments PT/OT co-treat completed due to the need for two skilled therapists to increase safety during high level activities. OT focused on activity tolerance, ADL in dependence, UE strength and functional balance. PT focused on dynamic sitting & standing balance as well as transfers and LE strengthening. Pt completed functional mobility for ~30ft, 50ft with FWW and supervision for balance, requiring min cues for safety. Pt completed dynamic sitting activity for ~5 minutes x5 with supervision and no cues for safety. Pt completed functional dynamic standing activity for ~5mins x2 with FWW and supervision for balance. Pt educated on and completed UE strengthening HEP with #5 dumbbell and red flexbar, focusing on shoulder flexion, abduction, adduction; elbow flexion, extension; roof plumber strength. PT worked on Sitting EX including AP, LAQ, Marching, AB/ADD, GS, HS. Pt requiring max encouragement to participate throughout session with pt consistently stating "oh come on, let me just go to my room." Pt educated on the importance and benefits of therapy. Pt amb back to room with w/c follow to rest in recliner at end of tx. All needs met, call light next to pt. Assessment Current Status: Fair Progress Motivation is a limitation is progress for pt as pt self limits. PT Care Home Goals Care Home Goals PT Care Home Goals Time Frame: Jan 24, 2023 Roll Left & Right (QC): 6 Sit to Lying (QC): 6 Lying-Sitting on Side/Bed(QC): 6 Sit to Stand (QC): 6 Chair/Avl-mm-Bfkod Xfer(QC): 6 (/c FWW) Toilet Transfer (QC): 6 Car Transfer (QC): 5 Does the Patient Walk: Yes Walk 10 feet (QC): 6 (/c FWW) Walk 50ft with 2 Turns (QC): 6 (/c FWW) Walk 150 ft (QC): 6 (/c FWW) Walking 10ft on Uneven Surface: 4 (SBA /c FWW) 1 Step (curb) (QC): 4 (CGA /c cues and FWW) 4 Steps (QC): 4 (/c (B) rails) 12 Steps (QC): 4 (/c (B) rails) Picking up an Object (QC): 5 (/c installer interior assemblies) Does the Pt use WC or Scooter?: Yes Wheel 50 feet with 2 turns (QC: 6 Type: Manual Wheel 150 feet: 6 Type: Manual PT Plan Problem List Problem List: Activity Tolerance, Safety, Gait Treatment/Plan Treatment Plan: Continue Plan of Care Treatment Plan: Bed Mobility, Concurrent Therapy, Education, Functional Activity Christelle, Functional Strength, Group Therapy, Gait, Safety, Therapeutic Exercise, Transfers Treatment Duration: Jan 24, 2023 Frequency: At least 5 of 7 days/Wk (IRF) Estimated Hrs Per Day: 1.5 hours per day Patient and/or Family Agrees t: Yes Safety Risks/Education Patient Education: Gait Training, Correct Positioning, Safety Issues Teaching Recipient: Patient Teaching Methods: Discussion Response to Teaching: Reinforcement Needed Time Time In: 0940 Time Out: 1055 DATE: Jan 12, 2023 Total Billed Treatment Time: 75 Total Billed Treatment Co-treat w/OT for 75m 1, GT (20m) & FA x4 (55m) AARON BELLA [employer] AND [employer] OPERATOR Jan 12, 2023 12:17
[2023-01-12] MEDS: MICONAZOLE 2% POWDER 90 GM TOP SCH ×2 (14:10→20:12)
--- NOTE | 2023-01-12 15:01 | Occupational Ther Daily Note ---
OT Current Status-Daily Note Subjective Pt received lying supine in bed. Pt very pleasant and willing to participate in therapy. Pain Numeric Pain Scale: 0-No Pain Location: No Pain Reported Mental Status/Objective Patient Orientation: Person, Place, Situation ADL-Treatment Therapy Code Descriptions/Definitions Functional [place] Measure: 0=Not Assessed/NA 4=Minimal Assistance 1=Total Assistance 5=Supervision or Setup 2=Maximal Assistance 6=Modified [place] 3=Moderate Assistance 7=Complete IndependenceSCALE: Activities may be completed with or without assistive devices. 6-Sbwjfljjqc-jrytibw completes the activity by him/herself with no assistance from a helper. 5-Set-up or Clean-up Assistance-helper sets up or cleans up; patient completes activity. [place] assists only prior to or following the activity. 4-Supervision or Touching Assistance-helper provides verbal cues and/or touching/steadying and/or contact guard assistance as patient completes activity. Assistance may be provided throughout the activity or intermittently. 3-Partial/Moderate Assistance-helper does LESS THAN HALF the effort. [place] lifts, holds or supports trunk or limbs, but provides less than half the effort. 2-Substantial/Maximal Assistance-helper does MORE THAN HALF the effort. [place] lifts or holds trunk or limbs and provides more than half the effort. 2-Mweyjknhq-lsilqp does ALL the effort. Patient does none of the effort to complete the activity. Or, the assistance of 2 or more helpers is required for the patient to complete the activity. If activity was not attempted, code reason: 7-Patient Refused. 9-Not Applicable-not attempted and the patient did not perform the activity before the current illness, exacerbation or injury. 10-Not Attempted due to Environmental Limitations-(lack of equipment, weather restraints, etc.). 88-Not Attempted due to Medical Conditions or Safety Concerns. Eating (QC): 5 On/Off Footwear: 3 (to don/doff socks) Other Treatment PT/OT cotreat completed due to the need for two skilled therapists to increase safety during high level activities. OT focused on activity tolerance, ADL independence, UE strength and functional balance. Please refer to the PT note for details following PT care. Pt completed functional mobility for ~30ft, 50ft with FWW and supervision for balance, requiring min cues for safety. Pt completed dynamic sitting activity for ~5 minutes x5 with supervision and no cues for safety. Pt completed functional dynamic standing activity for ~5mins x2 with FWW and supervision for balance. Pt educated on and completed UE strengthening HEP with #5 dumbbell and red flexbar, focusing on shoulder flexion, abduction, adduction; elbow flexion, extension; hall manager strength. Pt requiring max encouragement to participate throughout session with pt consistently stating "oh come on, let me just go to my room." Pt educated on the importance and benefits of therapy. Education OT Patient Education: Correct positioning, Energy conservation, Home exercise program, Modified ADL techniques, Progress toward Goal/Update tx plan, Purpose of tx/functional activities, Rehab process, Safety issues, Transfer techniques, Use of adapted equipment Teaching Recipient: Patient Teaching Methods: Demonstration, Discussion Response to Teaching: Verbalize Understanding, Return Demonstration OT Short Term Goals Short Term Goals Time Frame: Jan 17, 2023 Eatin Oral hygiene: 5 Toileting hygiene: 5 Shower/bathe self: 3 Upper body dressin Lower body dressin Putting on/taking off footwear: 4 OT Care Home Goals Care Home Goals Time Frame: Jan 24, 2023 Acute change in mental status: 1 Inattention: 2 Disorganized thinkin Altered level of consciousness: 0 Eating (QC): 6 Oral Hygiene (QC): 6 Toileting Hygiene (QC): 6 Shower/Bathe Self (QC): 6 Upper Body Dressing (QC): 6 Lower Body Dressing (QC): 6 On/Off Footwear (QC): 6 1=Demonstrate adherence to instructed precautions during ADL tasks. 2=Patient will verbalize/demonstrate understanding of assistive devices/modifications for ADL. 3=Patient will improve strength/tolerance for activity to enable patient to perform ADL's. OT Education/Plan Problem List/Assessment Assessment: Decreased Activ Tolerance, Decreased Safety Aware, Decreased UE Strength, Impaired Cognition, Impaired Coordination, Impaired Funct Balance, Impaired I ADL's, Impaired Self-Care Skills Discharge Recommendations Plan/Recommendations: Continue POC Barriers to Progress cognition Treatment Plan/Plan of Care Treatment,Training & Education: Yes Patient would benefit from OT for education, treatment and training to promote independence in ADL's, mobility, safety and/or upper extremity function for ADL's. Plan of Care: ADL Retraining, Cognitive Retraining, Concurrent Therapy, Functional Mobility, Group Exercise/Act as Ind, UE Funct Exercise/Act Treatment Duration: Feb 07, 2023 Frequency: At least 5 of 7 days/Wk (IRF) Estimated Hrs Per Day: Other (75 minutes per day ) Agreement: Yes Rehab Potential: Fair Time Start Time: 09:40 Stop Time: 10:55 ([id number] O/PT Cotreat) DATE: Jan 12, 2023 Total Time Billed (hr/min): 75 Billed Treatment Time 1, FA 3, EX 2 Kavitha Coelho OTR/L Jan 12, 2023 15:01
--- NOTE | 2023-01-12 16:03 | Speech Therapy Daily Note ---
Speech Daily Progress Note Subjective Date Seen by Provider: Jan 12, 2023 Time Seen by Provider: 12:45 Pt requires encouragement to participate Objective Pt completes delayed recall tasks over 15 minutes and completes with 35% accuracy. Pt demonstrates poor attention to tasks, which affects progress. During session, pt states he is having a bowel mvmt in his pants while sitting in his bedside chair. LAND LEVELER grabs nrsing to assist pt with this. LAND LEVELER steps out of the room for several minutes, and then finishes session once pt is back in his chair. Assessment Assessment Current Status: Poor Progress Treatment Plan Continue Plan of Care Speech [id number] Consultant Goals Care Home Goals Pt will complete simple reasoning tasks to improve orientation and problem solving with 80% accuracy. Pt will demonstrate the ability to follow multi-step directions related to functional living with 80% accuracy. Pt will demonstrate recall of functional information following a short-term and long-term delay with 80% accuracy. Speech-Plan Treatment Plan Speech Therapy Treatment Plan: Continue Plan of Care Treatment Duration: Jan 10, 2023 Frequency: At least 5 of 7 days/Wk (IRF) Estimated Hrs Per Day: .5 hour per day Rehab Potential: Fair Time Speech Therapy Time In: 12:45 Speech Therapy Time Out: 13:20 DATE: Jan 12, 2023 Total Billed Time: 30 Billed Treatment Time 1 SLTS 30 min [id number] Jessica Tran Jan 12, 2023 16:03
[2023-01-12] MEDS: TAMSULOSIN 0.4 MG (FLOMAX) CAP PO SCH (17:23)
[2023-01-12 19:40] VITALS: BP 132/77
[2023-01-13] MEDS: oxyCODONE IMMEDIATE RELEASE 5 MG TABLET PO PRN ×4 (03:10→20:37)
--- NOTE | 2023-01-13 05:30 | PM&R Progress Note ---
Subjective HPI/CC On Admission Date Seen by Provider: Jan 13, 2023 Time Seen by Provider: 10:00 Subjective/Events-last exam 01/13/2023: Much improved Incontinence seems to be new NO falls NO pain 01/12/2023: Patient doing well Reviewed meds and labs No falls No pain Edema improved 01/11/2023: Patient doing well Denies any new problems No falls Edema much improved 01/10/2023: Doing well Edema still present Labs stable No falls Participation is good 01/09/2023: Patient doing about the same Reviewed meds and labs No falls Pain is pretty well controlled Labs reviewed No hypoxia Review of Systems General: Fatigue, Malaise Objective Exam Vital Signs Vital Signs Date Time Temp Pulse Resp B/P (MAP) Pulse Ox O2 Delivery O2 Flow Rate FiO2 01/13/23 07:41 36.6 71 18 106/56 (73) 92 Room Air Capillary Refill : General Appearance: No Apparent Distress, WD/WN, Anxious, Chronically ill HEENT: PERRL/EOMI, Normal ENT Inspection, Pharynx Normal Neck: Full Range of Motion, Normal Inspection, Non Tender, Supple, Carotid Br uit Respiratory: Chest Non Tender, Lungs Clear, Normal Breath Sounds, No Accessory Muscle Use, No Respiratory Distress Cardiovascular: No Edema, No Gallop, No JVD, No Murmur, Normal Peripheral Pulses, Irregularly Irregular Gastrointestinal: Normal Bowel Sounds, No Organomegaly, No Pulsatile Mass, Non Tender, Soft Back: Normal Inspection, No CVA Tenderness, No Vertebral Tenderness Extremity: Normal Capillary Refill, Normal Inspection, Normal Range of Motion, Non Tender, No Calf Tenderness, No Pedal Edema Neurologic/Psychiatric: Alert, Oriented x3, Abnormal Gait, Depressed Affect, Motor Weakness (generalized 3/5) Skin: Normal Color, Warm/Dry Lymphatic: No Adenopathy Results/Procedures Lab Patient resulted labs reviewed. FIM Transfers Therapy Code Descriptions/Definitions Functional [place] Measure: 0=Not Assessed/NA 4=Minimal Assistance 1=Total Assistance 5=Supervision or Setup 2=Maximal Assistance 6=Modified [place] 3=Moderate Assistance 7=Complete IndependenceSCALE: Activities may be completed with or without assistive devices. 4-Rradqpuvnf-tvywrwy completes the activity by him/herself with no assistance from a helper. 5-Set-up or Clean-up Assistance-helper sets up or cleans up; patient completes activity. [place] assists only prior to or following the activity. 4-Supervision or Touching Assistance-helper provides verbal cues and/or touching/steadying and/or contact guard assistance as patient completes activity. Assistance may be provided throughout the activity or intermittently. 3-Partial/Moderate Assistance-helper does LESS THAN HALF the effort. [place] lifts, holds or supports trunk or limbs, but provides less than half the effort. 2-Substantial/Maximal Assistance-helper does MORE THAN HALF the effort. [place] lifts or holds trunk or limbs and provides more than half the effort. 1-Xhzututas-uzpwmp does ALL the effort. Patient does none of the effort to complete the activity. Or, the assistance of 2 or more helpers is required for the patient to complete the activity. If activity was not attempted, code reason: 7-Patient Refused. 9-Not Applicable-not attempted and the patient did not perform the activity before the current illness, exacerbation or injury. 10-Not Attempted due to Environmental Limitations-(lack of equipment, weather restraints, etc.). 88-Not Attempted due to Medical Conditions or Safety Concerns. Roll Left to Right (QC): 6 ((I) using bed rail) Sit to Lying (QC): 6 Sit to Stand (QC): 3 Chair/Lgs-bp-Alsvb Xfer(QC): 3 Car Transfer (QC): 3 (min (A) /c cues) Gait Training Does the Patient Walk?: Yes Distance: 85', 175' Walk 10 feet (QC): 4 Walk 50 ft with 2 Turns(QC): 4 Walk 150 ft (QC): 4 Walking 10ft/uneven surface-QC: 3 (Mod (A) to step up onto uneven surface) Gait Persons Needed: 1 Gait Assistive Device: FWW Wheelchair Training Does the Pt Use a Wheelchair?: Yes Distance: 20' SBA to propel /c (B) UE's, distance limited by fatgiue Wheel 50 ft with 2 turns (QC): 5 (SBA) Wheel 150 ft (QC): 88 (unable to meet distance) Type of Wheelchair: Manual Stair Training 1 Step (curb) (QC): 1 (mod (A) of 2 for safety - froze at front of step and required extensive cues, assist with walker due to tremors, and assist to accomplish) 4 Steps (QC): 88 12 Steps (QC): 88 Balance Picking up an Object (QC): 3 (min (A) using casing flusher) ADL-Treatment Eating (QC): 5 Oral Hygiene (QC): 5 (Pt. able to complete grooming/oral hygiene while sitting at sink. Required assist with squeezing toothpaste onto toothbrush due tremors. ) Shower/Bathe Self (QC): 2 Upper Body Dressing (QC): 4 Lower Body Dressing (QC): 3 (required assistance threading RLE; able to thread LLE and pull up pants) On/Off Footwear (QC): 3 (to don/doff socks) Toileting Hygiene (QC): 3 (for thoroughness ) Assessment/Plan Assessment and Plan Assess & Plan/Chief Complaint Assessment: Weakness Debility Confusion- resolved CT head without acute abnormalities CT spine without cause for weakness Aspirin Ezetimibe MRI brain- no evidence of stroke Carotid ultrasound mild disease noted Echo with negative bubble study PT/OT IRF evaluated and accepted for Tuesday Chest pain Elevated BNP Chronic HFpEF Chest pain resoved Troponin negative BNP elevated Echo with EF 70-75% HTN HLD AFib Pacemaker BPH Obesity Continue home meds as able Plan: PT OT Monitor BP Increase mobility 01/09/2023: Supportive care Monitor blood pressure closely 01/10/2023: Continue treatment Monitor closely 01/11/2023: Supportive care Monitor closely 01/12/2023: Supportive care Monitor blood pressure 01/13/2023: Continue treatment Improved edema Incontinence management (1) Debilitated patient Status: Acute EVELYN CASSIDY DO Jan 13, 2023 05:30
[2023-01-13] MEDS: PRIMIDONE 250MG TABLET PO SCH (06:31)
[2023-01-13] MEDS: LEVOTHYROXINE 75 MCG TABLET PO SCH (06:31)
[2023-01-13] MEDS: CATHETER FLUSH 10 ML SYR IVP SCH ×3 (06:32→20:37)
[2023-01-13 07:41] VITALS: BP 106/56
[2023-01-13] MEDS: APIXABAN 5 MG TABLET PO SCH ×2 (08:36→20:37)
[2023-01-13] MEDS: SENNA W/DOCUSATE TABLET PO SCH ×2 (08:36→20:37)
[2023-01-13] MEDS: DOCUSATE SODIUM 100 MG CAPSULE PO SCH ×2 (08:36→20:37)
[2023-01-13] MEDS: ASPIRIN enteric coated 81MG TABLET PO SCH (08:36)
[2023-01-13] MEDS: FINASTERIDE 5 MG TABLET PO SCH (08:36)
[2023-01-13] MEDS: MICONAZOLE 2% POWDER 90 GM TOP SCH ×2 (08:37→20:39)
--- NOTE | 2023-01-13 09:47 | Speech Therapy Daily Note ---
Speech Daily Progress Note Subjective Date Seen by Provider: Jan 13, 2023 Time Seen by Provider: 07:30 Pt sitting up in recliner watching television when VENEER REPAIRER MACHINE enters room. Pt pleasant and cooperative throughout session. Pain Location: No Pain Reported Objective Pt asks VENEER REPAIRER MACHINE lots of questions and often repeats questions he already asked. Pt often answers questions appropriately when asked. Pt is oriented to the day and knows that it is Thanksgiving. Pt talks about older memories and easily distracted throughout the session. Pt completes recalling information following a short delay with 70% accuracy. Pt completes basic problem solving with 90% accuracy with min verbal cues. Assessment Assessment Current Status: Good Progress Treatment Plan Continue Plan of Care Speech Longterm Goals Genomics Scientist Goals Pt will complete simple reasoning tasks to improve orientation and problem solving with 80% accuracy. Pt will demonstrate the ability to follow multi-step directions related to functional living with 80% accuracy. Pt will demonstrate recall of functional information following a short-term and long-term delay with 80% accuracy. Speech-Plan Patient/Family Goals Patient/Family Goals: Unknown at this time. Treatment Plan Speech Therapy Treatment Plan: Continue Plan of Care Treatment Duration: Jan 10, 2023 Frequency: At least 5 of 7 days/Wk (IRF) Estimated Hrs Per Day: .5 hour per day Rehab Potential: Fair Pt/Family Agrees to Plan: Yes Safety Risks/Education Teaching Recipient: Patient Teaching Methods: Discussion Response to Teaching: Verbalize Understanding, Reinforcement Needed Education Topics Provided: Pt educated on the purpose of speech therapy tasks. Pt receptive but will likely require reinforcement. Time Speech Therapy Time In: 07:30 Speech Therapy Time Out: 08:00 DATE: Jan 13, 2023 Total Billed Time: 30 Billed Treatment Time S/L Kvng Arellano Speech Therapy Jan 13, 2023 09:47
--- NOTE | 2023-01-13 10:50 | Occupational Ther Daily Note ---
OT Current Status-Daily Note Subjective Pt received sitting in recliner. Pt pleasant and willing to participate in therapy, though pt required moderate encouragement to participate throughout session. Pain Numeric Pain Scale: 0-No Pain Location: No Pain Reported Mental Status/Objective Patient Orientation: Person, Place, Time, Situation Attachments: IV ADL-Treatment Therapy Code Descriptions/Definitions Functional [place] Measure: 0=Not Assessed/NA 4=Minimal Assistance 1=Total Assistance 5=Supervision or Setup 2=Maximal Assistance 6=Modified [place] 3=Moderate Assistance 7=Complete IndependenceSCALE: Activities may be completed with or without assistive devices. 9-Nwwpwfasyg-loewiik completes the activity by him/herself with no assistance from a helper. 5-Set-up or Clean-up Assistance-helper sets up or cleans up; patient completes activity. [place] assists only prior to or following the activity. 4-Supervision or Touching Assistance-helper provides verbal cues and/or touching/steadying and/or contact guard assistance as patient completes activity. Assistance may be provided throughout the activity or intermittently. 3-Partial/Moderate Assistance-helper does LESS THAN HALF the effort. [place] lifts, holds or supports trunk or limbs, but provides less than half the effort. 2-Substantial/Maximal Assistance-helper does MORE THAN HALF the effort. [place] lifts or holds trunk or limbs and provides more than half the effort. 0-Ulwcojbhf-rxylce does ALL the effort. Patient does none of the effort to complete the activity. Or, the assistance of 2 or more helpers is required for the patient to complete the activity. If activity was not attempted, code reason: 7-Patient Refused. 9-Not Applicable-not attempted and the patient did not perform the activity before the current illness, exacerbation or injury. 10-Not Attempted due to Environmental Limitations-(lack of equipment, weather restraints, etc.). 88-Not Attempted due to Medical Conditions or Safety Concerns. Upper Body Dressing (QC): 4 Other Treatment PT/OT cotreat completed due to the need for two skilled therapists to increase safety during high level activities. OT focused on activity tolerance, ADL independence, UE strength and functional balance. Please refer to the PT note for details following PT care. Pt completed functional mobility for ~120ft, 80ft X2 with FWW and supervision for balance, requiring min cues for safety. Pt completed dynamic sitting activity for ~10 minutes in unsupported sitting with supervision and no cues for safety. Pt educated on and completed UE strengthening HEP with red theraband, blue foam and red flexbar, focusing on shoulder flexion, abduction, adduction; elbow flexion, extension; color tester strength. Education OT Patient Education: Correct positioning, Energy conservation, Home exercise program, Modified ADL techniques, Progress toward Goal/Update tx plan, Purpose of tx/functional activities, Rehab process, Safety issues, Transfer techniques, Use of adapted equipment Teaching Recipient: Patient Teaching Methods: Demonstration, Discussion Response to Teaching: Verbalize Understanding, Return Demonstration OT Short Term Goals Short Term Goals Time Frame: Jan 17, 2023 Eatin Oral hygiene: 5 Toileting hygiene: 5 Shower/bathe self: 3 Upper body dressin Lower body dressin Putting on/taking off footwear: 4 OT Technology Training Associate Goals [facility] Goals Time Frame: Jan 24, 2023 Acute change in mental status: 1 Inattention: 2 Disorganized thinkin Altered level of consciousness: 0 Eating (QC): 6 Oral Hygiene (QC): 6 Toileting Hygiene (QC): 6 Shower/Bathe Self (QC): 6 Upper Body Dressing (QC): 6 Lower Body Dressing (QC): 6 On/Off Footwear (QC): 6 1=Demonstrate adherence to instructed precautions during ADL tasks. 2=Patient will verbalize/demonstrate understanding of assistive devices/modifications for ADL. 3=Patient will improve strength/tolerance for activity to enable patient to perform ADL's. OT Education/Plan Problem List/Assessment Assessment: Decreased Activ Tolerance, Decreased Safety Aware, Decreased UE Strength, Impaired Bed Mobility, Impaired Cognition, Impaired Coordination, Impaired Funct Balance, Impaired I ADL's, Impaired Self-Care Skills Discharge Recommendations Plan/Recommendations: Continue POC Treatment Plan/Plan of Care Treatment,Training & Education: Yes Patient would benefit from OT for education, treatment and training to promote independence in ADL's, mobility, safety and/or upper extremity function for ADL's. Plan of Care: ADL Retraining, Cognitive Retraining, Concurrent Therapy, Functional Mobility, Group Exercise/Act as Ind, UE Funct Exercise/Act Treatment Duration: Feb 07, 2023 Frequency: At least 5 of 7 days/Wk (IRF) Estimated Hrs Per Day: Other (75 minutes per day ) Agreement: Yes Rehab Potential: Fair Time Start Time: 09:30 (PT/OT Co-treat [id number]) Stop Time: 10:45 DATE: Jan 13, 2023 Total Time Billed (hr/min): 75 Billed Treatment Time 1, FA 3, EX 2 Kavitha Coelho OTR/L Jan 13, 2023 10:50
--- NOTE | 2023-01-13 12:28 | Physical Therapy Daily Note ---
PT Daily Note-Current Subjective Pt found seated in recliner upon entry. Agreed to PT/OT co-treatment. Reports no pain pre-treatment. PT focus on LE strengthening and transfers. OT focus on UE strength and ADLs. Pain Section J - Health Conditions 1. Rarely or not at all 2. Occasionally 3. Frequently 4. Almost constantly 8. Unable to answer Pain Effect on Sleep: 1 Pain Interference with Therapy: 1 Pain Interference w/Day-to-Day: 1 Mental Status Patient Orientation: Person Transfers SCALE: Activities may be completed with or without assistive devices. 2-Tvarjxwwcm-rxfwwss completes the activity by him/herself with no assistance from a helper. 5-Set-up or Clean-up Assistance-helper sets up or cleans up; patient completes activity. [place] assists only prior to or following the activity. 4-Supervision or Touching Assistance-helper provides verbal cues and/or touching/steadying and/or contact guard assistance as patient completes activity. Assistance may be provided throughout the activity or intermittently. 3-Partial/Moderate Assistance-helper does LESS THAN HALF the effort. [place] lifts, holds or supports trunk or limbs, but provides less than half the effort. 2-Substantial/Maximal Assistance-helper does MORE THAN HALF the effort. [place] lifts or holds trunk or limbs and provides more than half the effort. 6-Cinoobgom-rptrvd does ALL the effort. Patient does none of the effort to complete the activity. Or, the assistance of 2 or more helpers is required for the patient to complete the activity. If activity was not attempted, code reason: 7-Patient Refused. 9-Not Applicable-not attempted and the patient did not perform the activity before the current illness, exacerbation or injury. 10-Not Attempted due to Environmental Limitations-(lack of equipment, weather restraints, etc.). 88-Not Attempted due to Medical Conditions or Safety Concerns. Sit to Stand (QC): 3 Weight Bearing Right Lower Extremity: Right Full Weight Bearing Left Lower Extremity: Left Full Weight Bearing Gait Training Does the Patient Walk?: Yes Distance: 120, 80 feet x 2 Walk 10 feet (QC): 4 Walk 50 ft with 2 Turns(QC): 4 Gait Persons Needed: 1 Gait Assistive Device: FWW Treatments LE Therapeutic Exercises (B) x 15ea: - LAQs - Marching - Hip abd - Hip add - Heel/toe raises - SLRs UE Exercises: (see OT note) Assessment Current Status: Good Progress Pt performs sit to stand transfer from recliner and wheelchair /c MIN assist for lifting. He ambulates up to 120 feet /c use of a FWW before requesting a seated rest break. Pt UEs very shaky throughout visit but displays no loss of balance. CGA required during gait training due to strength and balance deficits. Pt tolerated all therapeutic exercises well and required minimal verbal cues for correct performance. No increased pain reported. Pt left in recliner post- treatment /c call light in place and all needs met. Continue to progress pt per POC. PT Prison Goals Shear Helper Goals PT Prison Goals Time Frame: Jan 24, 2023 Roll Left & Right (QC): 6 Sit to Lying (QC): 6 Lying-Sitting on Side/Bed(QC): 6 Sit to Stand (QC): 6 Chair/Yvs-vk-Wsmxt Xfer(QC): 6 (/c FWW) Toilet Transfer (QC): 6 Car Transfer (QC): 5 Does the Patient Walk: Yes Walk 10 feet (QC): 6 (/c FWW) Walk 50ft with 2 Turns (QC): 6 (/c FWW) Walk 150 ft (QC): 6 (/c FWW) Walking 10ft on Uneven Surface: 4 (SBA /c FWW) 1 Step (curb) (QC): 4 (CGA /c cues and FWW) 4 Steps (QC): 4 (/c (B) rails) 12 Steps (QC): 4 (/c (B) rails) Picking up an Object (QC): 5 (/c business office representative) Does the Pt use WC or Scooter?: Yes Wheel 50 feet with 2 turns (QC: 6 Type: Manual Wheel 150 feet: 6 Type: Manual PT Plan Treatment/Plan Treatment Plan: Continue Plan of Care Treatment Plan: Bed Mobility, Concurrent Therapy, Education, Functional Activity Christelle, Functional Strength, Group Therapy, Gait, Safety, Therapeutic Exercise, Transfers Treatment Duration: Jan 24, 2023 Frequency: At least 5 of 7 days/Wk (IRF) Estimated Hrs Per Day: 1.5 hours per day Patient and/or Family Agrees t: Yes Time Time In: 0930 Time Out: 1045 DATE: Jan 13, 2023 Total Billed Treatment Time: 75 Total Billed Treatment 1 visit GT x 2 EX x 2 FA x 1 Co-treatment time: Total treatment time: ALMITA FERGUSON GROUNDWATER MONITORING TECHNICIAN Jan 13, 2023 12:28
[2023-01-13] MEDS: TAMSULOSIN 0.4 MG (FLOMAX) CAP PO SCH (18:09)
[2023-01-13] MEDS ORDERED: LIDOCAINE UROJET 2% GEL 10 ML PKG ONE (18:35)
[2023-01-13 19:52] VITALS: BP 130/59
--- NOTE | 2023-01-14 06:51 | PM&R Progress Note ---
Subjective HPI/CC On Admission Date Seen by Provider: Jan 14, 2023 Time Seen by Provider: 12:30 Subjective/Events-last exam 01/14/2023: No new issues Urinary retention required In-N-Out cath last night but now resolved Increase Flomax to twice a day Moving around a little bit better 01/13/2023: Much improved Incontinence seems to be new NO falls NO pain 01/12/2023: Patient doing well Reviewed meds and labs No falls No pain Edema improved 01/11/2023: Patient doing well Denies any new problems No falls Edema much improved 01/10/2023: Doing well Edema still present Labs stable No falls Participation is good 01/09/2023: Patient doing about the same Reviewed meds and labs No falls Pain is pretty well controlled Labs reviewed No hypoxia Review of Systems General: Fatigue, Malaise Objective Exam Vital Signs Vital Signs Date Time Temp Pulse Resp B/P (MAP) Pulse Ox O2 Delivery O2 Flow Rate FiO2 01/14/23 08:26 Room Air 01/14/23 08:18 68 18 94 01/14/23 08:00 36.3 102/58 (73) Capillary Refill : General Appearance: No Apparent Distress, WD/WN, Anxious, Chronically ill HEENT: PERRL/EOMI, Normal ENT Inspection, Pharynx Normal Neck: Full Range of Motion, Normal Inspection, Non Tender, Supple, Carotid Bruit Respiratory: Chest Non Tender, Lungs Clear, Normal Breath Sounds, No Accessory Muscle Use, No Respiratory Distress Cardiovascular: No Edema, No Gallop, No JVD, No Murmur, Normal Peripheral Pulses, Irregularly Irregular Gastrointestinal: Normal Bowel Sounds, No Organomegaly, No Pulsatile Mass, Non Tender, Soft Back: Normal Inspection, No CVA Tenderness, No Vertebral Tenderness Extremity: Normal Capillary Refill, Normal Inspection, Normal Range of Motion, Non Tender, No Calf Tenderness, No Pedal Edema Neurologic/Psychiatric: Alert, Oriented x3, Abnormal Gait, Depressed Affect, Motor Weakness (generalized 3/5) Skin: Normal Color, Warm/Dry Lymphatic: No Adenopathy Results/Procedures Lab Laboratory Tests 01/14/23 07:10 Patient resulted labs reviewed. FIM Transfers Therapy Code Descriptions/Definitions Functional [place] Measure: 0=Not Assessed/NA 4=Minimal Assistance 1=Total Assistance 5=Supervision or Setup 2=Maximal Assistance 6=Modified [place] 3=Moderate Assistance 7=Complete IndependenceSCALE: Activities may be completed with or without assistive devices. 6-Aiarnkdocq-klvdjyx completes the activity by him/herself with no assistance from a helper. 5-Set-up or Clean-up Assistance-helper sets up or cleans up; patient completes activity. [place] assists only prior to or following the activity. 4-Supervision or Touching Assistance-helper provides verbal cues and/or touching/steadying and/or contact guard assistance as patient completes activity. Assistance may be provided throughout the activity or intermittently. 3-Partial/Moderate Assistance-helper does LESS THAN HALF the effort. [place] lifts, holds or supports trunk or limbs, but provides less than half the effort. 2-Substantial/Maximal Assistance-helper does MORE THAN HALF the effort. [place] lifts or holds trunk or limbs and provides more than half the effort. 9-Peergrimn-diygfs does ALL the effort. Patient does none of the effort to complete the activity. Or, the assistance of 2 or more helpers is required for the patient to complete the activity. If activity was not attempted, code reason: 7-Patient Refused. 9-Not Applicable-not attempted and the patient did not perform the activity before the current illness, exacerbation or injury. 10-Not Attempted due to Environmental Limitations-(lack of equipment, weather restraints, etc.). 88-Not Attempted due to Medical Conditions or Safety Concerns. Roll Left to Right (QC): 6 ((I) using bed rail) Sit to Lying (QC): 6 Sit to Stand (QC): 3 Chair/Mbd-qk-Rtdqd Xfer(QC): 3 Car Transfer (QC): 3 (min (A) /c cues) Gait Training Does the Patient Walk?: Yes Distance: 120, 80 feet x 2 Walk 10 feet (QC): 4 Walk 50 ft with 2 Turns(QC): 4 Walk 150 ft (QC): 4 Walking 10ft/uneven surface-QC: 3 (Mod (A) to step up onto uneven surface) Gait Persons Needed: 1 Gait Assistive Device: FWW Wheelchair Training Does the Pt Use a Wheelchair?: Yes Distance: 20' SBA to propel /c (B) UE's, distance limited by fatgiue Wheel 50 ft with 2 turns (QC): 5 (SBA) Wheel 150 ft (QC): 88 (unable to meet distance) Type of Wheelchair: Manual Stair Training 1 Step (curb) (QC): 1 (mod (A) of 2 for safety - froze at front of step and required extensive cues, assist with walker due to tremors, and assist to accomplish) 4 Steps (QC): 88 12 Steps (QC): 88 Balance Picking up an Object (QC): 3 (min (A) using deputy brand inspector) ADL-Treatment Eating (QC): 5 Oral Hygiene (QC): 5 (Pt. able to complete grooming/oral hygiene while sitting at sink. Required assist with squeezing toothpaste onto toothbrush due tremors. ) Shower/Bathe Self (QC): 2 Upper Body Dressing (QC): 4 Lower Body Dressing (QC): 3 (required assistance threading RLE; able to thread LLE and pull up pants) On/Off Footwear (QC): 3 (to don/doff socks) Toileting Hygiene (QC): 3 (for thoroughness ) Assessment/Plan Assessment and Plan Assess & Plan/Chief Complaint Assessment: Weakness Debility Confusion- resolved CT head without acute abnormalities CT spine without cause for weakness Aspirin Ezetimibe MRI brain- no evidence of stroke Carotid ultrasound mild disease noted Echo with negative bubble study PT/OT IRF evaluated and accepted for Tuesday Chest pain Elevated BNP Chronic HFpEF Chest pain resoved Troponin negative BNP elevated Echo with EF 70-75% HTN HLD AFib Pacemaker BPH Obesity Continue home meds as able Urinary incontinence Urinary retention Plan: PT OT Monitor BP Increase mobility 01/09/2023: Supportive care Monitor blood pressure closely 01/10/2023: Continue treatment Monitor closely 01/11/2023: Supportive care Monitor closely 01/12/2023: Supportive care Monitor blood pressure 01/13/2023: Continue treatment Improved edema Incontinence management 01/14/2023: Supportive care Monitor closely (1) Debilitated patient Status: Acute EVELYN CASSIDY DO Jan 14, 2023 06:51
[2023-01-14] MEDS: LEVOTHYROXINE 75 MCG TABLET PO SCH (07:01)
[2023-01-14] MEDS: CATHETER FLUSH 10 ML SYR IVP SCH ×4 (07:01→22:00)
[2023-01-14] MEDS: PRIMIDONE 250MG TABLET PO SCH (07:01)
[2023-01-14 07:22] LABS: BASOPHILS # (AUTO) 0.1 10^3/uL (0.0-0.1); BASOPHILS % (AUTO) 1 % (0-10); EOSINOPHILS # (AUTO) 0.2 10^3/uL (0.0-0.3); EOSINOPHILS % (AUTO) 3 % (0-10); HEMATOCRIT 38 % (40-54); HEMOGLOBIN 12.7 g/dL (13.3-17.7); LYMPHOCYTES % (AUTO) 14 % (12-44); MEAN CORPUSCULAR HEMOGLOBIN 32 pg (25-34); MEAN CORPUSCULAR HGB CONC 34 g/dL (32-36); MEAN CORPUSCULAR VOLUME 95 fL (80-99); MEAN PLATELET VOLUME 8.8 fL (9.0-12.2); MONOCYTES # (AUTO) 0.5 10^3/uL (0.0-1.0); MONOCYTES % (AUTO) 7 % (0-12); NEUTROPHILS # (AUTO) 5.5 10^3/uL (1.8-7.8); NEUTROPHILS % (AUTO) 75 % (42-75); PLATELET COUNT 275 10^3/uL (130-400); WHITE BLOOD COUNT 7.3 10^3/uL (4.3-11.0)
[2023-01-14 07:43] LABS: ALBUMIN 3.2 GM/DL (3.2-4.5); POTASSIUM 3.8 MMOL/L (3.6-5.0)
[2023-01-14 07:44] LABS: CALCIUM 8.7 MG/DL (8.5-10.1)
[2023-01-14 07:45] LABS: TOTAL PROTEIN 5.8 GM/DL (6.4-8.2)
[2023-01-14 07:47] LABS: BILIRUBIN,TOTAL 0.4 MG/DL (0.1-1.0)
[2023-01-14 07:49] LABS: CREATININE SERUM 0.95 MG/DL (0.60-1.30)
[2023-01-14 08:00] VITALS: BP 102/58
[2023-01-14] MEDS: ASPIRIN enteric coated 81MG TABLET PO SCH (08:20)
[2023-01-14] MEDS: APIXABAN 5 MG TABLET PO SCH ×2 (08:20→20:33)
[2023-01-14] MEDS: TAMSULOSIN 0.4 MG (FLOMAX) CAP PO SCH ×2 (08:20→20:33)
[2023-01-14] MEDS: FINASTERIDE 5 MG TABLET PO SCH (08:20)
[2023-01-14] MEDS: oxyCODONE IMMEDIATE RELEASE 5 MG TABLET PO PRN ×2 (08:27→20:41)
--- NOTE | 2023-01-14 09:34 | Occupational Ther Daily Note ---
OT Current Status-Daily Note Subjective Pt received lying supine in bed. Pt pleasant and agreeable to therapy. Pain Numeric Pain Scale: 8 Location Body Site: Head Mental Status/Objective Patient Orientation: Person, Place, Time, Situation Attachments: IV ADL-Treatment Therapy Code Descriptions/Definitions Functional [place] Measure: 0=Not Assessed/NA 4=Minimal Assistance 1=Total Assistance 5=Supervision or Setup 2=Maximal Assistance 6=Modified [place] 3=Moderate Assistance 7=Complete IndependenceSCALE: Activities may be completed with or without assistive devices. 9-Uchcacmtcg-lzaveyh completes the activity by him/herself with no assistance from a helper. 5-Set-up or Clean-up Assistance-helper sets up or cleans up; patient completes activity. [place] assists only prior to or following the activity. 4-Supervision or Touching Assistance-helper provides verbal cues and/or touching/steadying and/or contact guard assistance as patient completes activity. Assistance may be provided throughout the activity or intermittently. 3-Partial/Moderate Assistance-helper does LESS THAN HALF the effort. [place] li fts, holds or supports trunk or limbs, but provides less than half the effort. 2-Substantial/Maximal Assistance-helper does MORE THAN HALF the effort. [place] lifts or holds trunk or limbs and provides more than half the effort. 4-[place]-sgplsf does ALL the effort. Patient does none of the effort to complete the activity. Or, the assistance of 2 or more helpers is required for the patient to complete the activity. If activity was not attempted, code reason: 7-Patient Refused. 9-Not Applicable-not attempted and the patient did not perform the activity before the current illness, exacerbation or injury. 10-Not Attempted due to Environmental Limitations-(lack of equipment, weather restraints, etc.). 88-Not Attempted due to Medical Conditions or Safety Concerns. Eating (QC): 5 Lower Body Dressing (QC): 4 (to don/doff brief) On/Off Footwear: 5 (to don/doff socks; requiring mod A to don/doff compresion socks using sock aid) Other Treatment PT/OT cotreat completed due to the need for two skilled therapists to increase safety during high level activities. OT focused on activity tolerance, ADL independence, UE strength and functional balance. Please refer to the PT note for details following PT care. Pt completed functional mobility for ~80ft X2 with FWW and supervision for balance, requiring min cues for safety. Pt completed dynamic sitting activity for ~10 minutes in unsupported sitting with 2# wrist weights, requiring supervision and no cues for safety. Pt completed functional standing activities in parallel bars to increase functional strength and balance with supervision, requiring min cues for safety and encouragement to complete activity. Education OT Patient Education: Correct positioning, Energy conservation, Modified ADL techniques, Progress toward Goal/Update tx plan, Purpose of tx/functional activities, Rehab process, Safety issues, Transfer techniques, Use of adapted equipment Teaching Recipient: Patient Teaching Methods: Demonstration, Discussion Response to Teaching: Verbalize Understanding, Return Demonstration OT Short Term Goals Short Term Goals Time Frame: Jan 17, 2023 Eatin Oral hygiene: 5 Toileting hygiene: 5 Shower/bathe self: 3 Upper body dressin Lower body dressin Putting on/taking off footwear: 4 OT Detention Goals Detention Goals Time Frame: Jan 24, 2023 Acute change in mental status: 1 Inattention: 2 Disorganized thinkin Altered level of consciousness: 0 Eating (QC): 6 Oral Hygiene (QC): 6 Toileting Hygiene (QC): 6 Shower/Bathe Self (QC): 6 Upper Body Dressing (QC): 6 Lower Body Dressing (QC): 6 On/Off Footwear (QC): 6 1=Demonstrate adherence to instructed precautions during ADL tasks. 2=Patient will verbalize/demonstrate understanding of assistive devices/modifications for ADL. 3=Patient will improve strength/tolerance for activity to enable patient to perform ADL's. OT Education/Plan Problem List/Assessment Assessment: Decreased Activ Tolerance, Decreased Safety Aware, Decreased UE Strength, Impaired Cognition, Impaired Coordination, Impaired Funct Balance, Impaired I ADL's, Impaired Self-Care Skills Discharge Recommendations Plan/Recommendations: Continue POC Treatment Plan/Plan of Care Treatment,Training & Education: Yes Patient would benefit from OT for education, treatment and training to promote independence in ADL's, mobility, safety and/or upper extremity function for ADL's. Plan of Care: ADL Retraining, Cognitive Retraining, Concurrent Therapy, Functional Mobility, Group Exercise/Act as Ind, UE Funct Exercise/Act Treatment Duration: Feb 07, 2023 Frequency: At least 5 of 7 days/Wk (IRF) Estimated Hrs Per Day: Other (75 minutes per day ) Agreement: Yes Rehab Potential: Fair Time Start Time: 08:00 (OT/PT co-treat 8:00-9:00) Stop Time: 09:00 DATE: Jan 14, 2023 Total Time Billed (hr/min): 60 Billed Treatment Time 1, FA 3, ADL 1 Kavitha Coelho OTR/L Jan 14, 2023 09:33
[2023-01-14] MEDS: SENNA W/DOCUSATE TABLET PO SCH ×2 (12:07→20:33)
[2023-01-14] MEDS: DOCUSATE SODIUM 100 MG CAPSULE PO SCH ×2 (12:07→20:33)
--- NOTE | 2023-01-14 12:08 | Physical Therapy Daily Note ---
PT Daily Note-Current Subjective Pt found lying supine in bed upon entry. Agreed to PT/OT co-treatment. Reports pain at the back of his head. Rates 9/10 but does not describe. PT focus on LE strengthening and transfers. OT focus on UE strengthening and ADLs. Pain Section J - Health Conditions 1. Rarely or not at all 2. Occasionally 3. Frequently 4. Almost constantly 8. Unable to answer Pain Effect on Sleep: 1 Pain Interference with Therapy: 1 Pain Interference w/Day-to-Day: 1 Mental Status Patient Orientation: Person, Place Transfers SCALE: Activities may be completed with or without assistive devices. 2-Tfzofaegap-chznxyp completes the activity by him/herself with no assistance from a helper. 5-Set-up or Clean-up Assistance-helper sets up or cleans up; patient completes activity. [place] assists only prior to or following the activity. 4-Supervision or Touching Assistance-helper provides verbal cues and/or touching/steadying and/or contact guard assistance as patient completes activity. Assistance may be provided throughout the activity or intermittently. 3-Partial/Moderate Assistance-helper does LESS THAN HALF the effort. [place] lifts, holds or supports trunk or limbs, but provides less than half the effort. 2-Substantial/Maximal Assistance-helper does MORE THAN HALF the effort. [place] lifts or holds trunk or limbs and provides more than half the effort. 4-Zxzmpgatr-acklpv does ALL the effort. Patient does none of the effort to complete the activity. Or, the assistance of 2 or more helpers is required for the patient to complete the activity. If activity was not attempted, code reason: 7-Patient Refused. 9-Not Applicable-not attempted and the patient did not perform the activity bef ore the current illness, exacerbation or injury. 10-Not Attempted due to Environmental Limitations-(lack of equipment, weather r estraints, etc.). 88-Not Attempted due to Medical Conditions or Safety Concerns. Lying to Sitting/Side of Bed(Q: 6 Sit to Stand (QC): 4 Weight Bearing Right Lower Extremity: Right Full Weight Bearing Left Lower Extremity: Left Full Weight Bearing Gait Training Does the Patient Walk?: Yes Distance: 100ft x 2 Walk 10 feet (QC): 4 Walk 50 ft with 2 Turns(QC): 4 Gait Persons Needed: 1 Gait Assistive Device: FWW Treatments Standing LE Therapeutic Exercises (B) x 15ea: - Marching - Heel/toe raises - Hip abd - Hip ext - Hip flx UE Therapeutic Exercises: (see OT note) Assessment Current Status: Good Progress Pt performed lying to sitting transfer from bed independently /c use of bed railing. Sit to stand transfer performed /c CGA only for safety due to strength deficits. Pt ambulates /c use of a FWW up to 100 feet before requiring a seated rest break. Pt continues to demonstrate shaky UEs throughout gait training and required CGA for safety due to balance deficits. Displays a slow gait pattern /c shortened step lengths. Pt tolerated all standing therapeutic exercises well but did require occasional seated rest breaks to complete. Pt left in recliner post- treatment /c call light in place and all needs met. Continue to progress pt per POC. PT Producer Arborist Manager Goals Producer Arborist Manager Goals PT Producer Arborist Manager Goals Time Frame: Jan 24, 2023 Roll Left & Right (QC): 6 Sit to Lying (QC): 6 Lying-Sitting on Side/Bed(QC): 6 Sit to Stand (QC): 6 Chair/Vhm-kx-Olucj Xfer(QC): 6 (/c FWW) Toilet Transfer (QC): 6 Car Transfer (QC): 5 Does the Patient Walk: Yes Walk 10 feet (QC): 6 (/c FWW) Walk 50ft with 2 Turns (QC): 6 (/c FWW) Walk 150 ft (QC): 6 (/c FWW) Walking 10ft on Uneven Surface: 4 (SBA /c FWW) 1 Step (curb) (QC): 4 (CGA /c cues and FWW) 4 Steps (QC): 4 (/c (B) rails) 12 Steps (QC): 4 (/c (B) rails) Picking up an Object (QC): 5 (/c cheese sprayer) Does the Pt use WC or Scooter?: Yes Wheel 50 feet with 2 turns (QC: 6 Type: Manual Wheel 150 feet: 6 Type: Manual PT Plan Treatment/Plan Treatment Plan: Continue Plan of Care Treatment Plan: Bed Mobility, Concurrent Therapy, Education, Functional Activity Christelle, Functional Strength, Group Therapy, Gait, Safety, Therapeutic Exercise, Transfers Treatment Duration: Jan 24, 2023 Frequency: At least 5 of 7 days/Wk (IRF) Estimated Hrs Per Day: 1.5 hours per day Patient and/or Family Agrees t: Yes Time Time In: 0800 Time Out: 899 DATE: Jan 14, 2023 Total Billed Treatment Time: 60 Total Billed Treatment 1 visit GT x 2 EX x 1 FA x 1 Co-treatment time: 7702-7163 Total treatment time: 7403-1484 ALMITA FERGUSON PTA Jan 14, 2023 12:08
--- NOTE | 2023-01-14 12:53 | Speech Therapy Daily Note ---
Speech Daily Progress Note Subjective Date Seen by Provider: Jan 14, 2023 Time Seen by Provider: 09:15 Pt more agreeable to session this date. Objective Pt demonstrates poor long-term recall and requires mod to max verbal cues for recall. Assessment Assessment Current Status: Fair Progress Treatment Plan Continue Plan of Care Speech Field Technical Assistant Goals Field Technical Assistant Goals Pt will complete simple reasoning tasks to improve orientation and problem solving with 80% accuracy. Pt will demonstrate the ability to follow multi-step directions related to functional living with 80% accuracy. Pt will demonstrate recall of functional information following a short-term and long-term delay with 80% accuracy. Speech-Plan Treatment Plan Speech Therapy Treatment Plan: Continue Plan of Care Treatment Duration: Jan 10, 2023 Frequency: At least 5 of 7 days/Wk (IRF) Estimated Hrs Per Day: .5 hour per day Rehab Potential: Fair Time Speech Therapy Time In: 09:15 Speech Therapy Time Out: 09:45 DATE: Jan 14, 2023 Total Billed Time: 30 Billed Treatment Time 1 SLTS 30 min Jessica Tran Jan 14, 2023 12:53
--- NOTE | 2023-01-14 13:32 | Physical Therapy Daily Note ---
PT Daily Note-Current Subjective Pt found seated in recliner upon entry. Agreed to PT. No reports of pain pre- treatment. Pain Section J - Health Conditions 1. Rarely or not at all 2. Occasionally 3. Frequently 4. Almost constantly 8. Unable to answer Pain Effect on Sleep: 1 Pain Interference with Therapy: 1 Pain Interference w/Day-to-Day: 1 Mental Status Patient Orientation: Person, Place Transfers SCALE: Activities may be completed with or without assistive devices. 9-Kbyrrfehjm-hobuplb completes the activity by him/herself with no assistance from a helper. 5-Set-up or Clean-up Assistance-helper sets up or cleans up; patient completes activity. [place] assists only prior to or following the activity. 4-Supervision or Touching Assistance-helper provides verbal cues and/or touching/steadying and/or contact guard assistance as patient completes activity. Assistance may be provided throughout the activity or intermittently. 3-Partial/Moderate Assistance-helper does LESS THAN HALF the effort. [place] lifts, holds or supports trunk or limbs, but provides less than half the effort. 2-Substantial/Maximal Assistance-helper does MORE THAN HALF the effort. [place] lifts or holds trunk or limbs and provides more than half the effort. 6-Lhtdnqvfa-ldosmd does ALL the effort. Patient does none of the effort to complete the activity. Or, the assistance of 2 or more helpers is required for the patient to complete the activity. If activity was not attempted, code reason: 7-Patient Refused. 9-Not Applicable-not attempted and the patient did not perform the activity before the current illness, exacerbation or injury. 10-Not Attempted due to Environmental Limitations-(lack of equipment, weather restraints, etc.). 88-Not Attempted due to Medical Conditions or Safety Concerns. Sit to Stand (QC): 4 Weight Bearing Right Lower Extremity: Right Full Weight Bearing Left Lower Extremity: Left Full Weight Bearing Gait Training Does the Patient Walk?: Yes Distance: 100ft x 2 Walk 10 feet (QC): 4 Walk 50 ft with 2 Turns(QC): 4 Gait Persons Needed: 1 Gait Assistive Device: FWW Treatments Seated Therapeutic Exercises (B) x 20ea: - 2# LAQs - 2# Hamstring curls - 2# Hip abd - RTB Hip abd - RTB Hamstring curls - RTB Marching - TA sets /c [place] ball Assessment Current Status: Good Progress Pt performs sit to stand transfer from recliner and wheelchair /c CGA only for safety due to strength deficits. He ambulates up to 100 feet /c use of a FWW before requiring a short seated rest break. No loss of balance demonstrated during gait training but he does require CGA due to unsteadiness and weakness. Pt displays good tolerance to seated therapeutic exercises and required no rest breaks to complete. Pt left seated in recliner post-treatment /c call light in place and all needs met. Continue to progress pt per POC. - PT Parking Meter Attendant Goals Parking Meter Attendant Goals PT Parking Meter Attendant Goals Time Frame: Jan 24, 2023 Roll Left & Right (QC): 6 Sit to Lying (QC): 6 Lying-Sitting on Side/Bed(QC): 6 Sit to Stand (QC): 6 Chair/Vec-mz-Txyki Xfer(QC): 6 (/c FWW) Toilet Transfer (QC): 6 Car Transfer (QC): 5 Does the Patient Walk: Yes Walk 10 feet (QC): 6 (/c FWW) Walk 50ft with 2 Turns (QC): 6 (/c FWW) Walk 150 ft (QC): 6 (/c FWW) Walking 10ft on Uneven Surface: 4 (SBA /c FWW) 1 Step (curb) (QC): 4 (CGA /c cues and FWW) 4 Steps (QC): 4 (/c (B) rails) 12 Steps (QC): 4 (/c (B) rails) Picking up an Object (QC): 5 (/c continuous washer operator) Does the Pt use WC or Scooter?: Yes Wheel 50 feet with 2 turns (QC: 6 Type: Manual Wheel 150 feet: 6 Type: Manual PT Plan Treatment/Plan Treatment Plan: Continue Plan of Care Treatment Plan: Bed Mobility, Concurrent Therapy, Education, Functional Activity Christelle, Functional Strength, Group Therapy, Gait, Safety, Therapeutic Exercise, Transfers Treatment Duration: Jan 24, 2023 Frequency: At least 5 of 7 days/Wk (IRF) Estimated Hrs Per Day: 1.5 hours per day Patient and/or Family Agrees t: Yes Time Time In: 1300 Time Out: 1330 DATE: Jan 14, 2023 Total Billed Treatment Time: 30 Total Billed Treatment 1 visit GT x 1 EX x 1 ALMITA FERGUSON LITHOGRAPHIC PRESS OPERATOR APPRENTICE Jan 14, 2023 13:31
[2023-01-14] MEDS: MICONAZOLE 2% POWDER 90 GM TOP SCH ×2 (14:09→20:34)
[2023-01-14 20:17] VITALS: BP 131/71
[2023-01-15] MEDS: oxyCODONE IMMEDIATE RELEASE 5 MG TABLET PO PRN ×5 (01:13→20:35)
[2023-01-15] MEDS: CATHETER FLUSH 10 ML SYR IVP SCH ×4 (05:22→20:35)
[2023-01-15] MEDS: LEVOTHYROXINE 75 MCG TABLET PO SCH (06:17)
[2023-01-15] MEDS: PRIMIDONE 250MG TABLET PO SCH (06:17)
--- NOTE | 2023-01-15 06:31 | PM&R Progress Note ---
Subjective HPI/CC On Admission Date Seen by Provider: Jan 15, 2023 Time Seen by Provider: 12:30 Subjective/Events-last exam 01/15/2023: Patient doing pretty well Flomax twice daily has helped retention No more urinary incontinence reported Overall doing well 01/14/2023: No new issues Urinary retention required In-N-Out cath last night but now resolved Increase Flomax to twice a day Moving around a little bit better 01/13/2023: Much improved Incontinence seems to be new NO falls NO pain 01/12/2023: Patient doing well Reviewed meds and labs No falls No pain Edema improved 01/11/2023: Patient doing well Denies any new problems No falls Edema much improved 01/10/2023: Doing well Edema still present Labs stable No falls Participation is good 01/09/2023: Patient doing about the same Reviewed meds and labs No falls Pain is pretty well controlled Labs reviewed No hypoxia Review of Systems General: Fatigue, Malaise Objective Exam Vital Signs Vital Signs Date Time Temp Pulse Resp B/P (MAP) Pulse Ox O2 Delivery O2 Flow Rate FiO2 01/15/23 20:30 95 Room Air 01/15/23 19:40 36.3 70 18 119/72 (88) Capillary Refill : General Appearance: No Apparent Distress, WD/WN, Anxious, Chronically ill HEENT: PERRL/EOMI, Normal ENT Inspection, Pharynx Normal Neck: Full Range of Motion, Normal Inspection, Non Tender, Supple, Carotid Bruit Respiratory: Chest Non Tender, Lungs Clear, Normal Breath Sounds, No Accessory Muscle Use, No Respiratory Distress Cardiovascular: No Edema, No Gallop, No JVD, No Murmur, Normal Peripheral Pulses, Irregularly Irregular Gastrointestinal: Normal Bowel Sounds, No Organomegaly, No Pulsatile Mass, Non Tender, Soft Back: Normal Inspection, No CVA Tenderness, No Vertebral Tenderness Extremity: Normal Capillary Refill, Normal Inspection, Normal Range of Motion, Non Tender, No Calf Tenderness, No Pedal Edema Neurologic/Psychiatric: Alert, Oriented x3, Abnormal Gait, Depressed Affect, Motor Weakness (generalized 3/5) Skin: Normal Color, Warm/Dry Lymphatic: No Adenopathy Results/Procedures Lab Patient resulted labs reviewed. FIM Transfers Therapy Code Descriptions/Definitions Functional [place] Measure: 0=Not Assessed/NA 4=Minimal Assistance 1=Total Assistance 5=Supervision or Setup 2=Maximal Assistance 6=Modified [place] 3=Moderate Assistance 7=Complete IndependenceSCALE: Activities may be completed with or without assistive devices. 6-Phzyjjdpqb-jdhshwr completes the activity by him/herself with no assistance f rom a helper. 5-Set-up or Clean-up Assistance-helper sets up or cleans up; patient completes activity. [place] assists only prior to or following the activity. 4-Supervision or Touching Assistance-helper provides verbal cues and/or touching/steadying and/or contact guard assistance as patient completes activity. Assistance may be provided throughout the activity or intermittently. 3-Partial/Moderate Assistance-helper does LESS THAN HALF the effort. [place] lifts, holds or supports trunk or limbs, but provides less than half the effort. 2-Substantial/Maximal Assistance-helper does MORE THAN HALF the effort. [place] lifts or holds trunk or limbs and provides more than half the effort. 5-Xhjdqxcrz-zjwfxl does ALL the effort. Patient does none of the effort to complete the activity. Or, the assistance of 2 or more helpers is required for the patient to complete the activity. If activity was not attempted, code reason: 7-Patient Refused. 9-Not Applicable-not attempted and the patient did not perform the activity before the current illness, exacerbation or injury. 10-Not Attempted due to Environmental Limitations-(lack of equipment, weather restraints, etc.). 88-Not Attempted due to Medical Conditions or Safety Concerns. Roll Left to Right (QC): 6 ((I) using bed rail) Sit to Lying (QC): 6 Sit to Stand (QC): 4 Chair/Olw-ee-Mkjcf Xfer(QC): 3 Car Transfer (QC): 3 (min (A) /c cues) Gait Training Does the Patient Walk?: Yes Distance: 100ft x 2 Walk 10 feet (QC): 4 Walk 50 ft with 2 Turns(QC): 4 Walk 150 ft (QC): 4 Walking 10ft/uneven surface-QC: 3 (Mod (A) to step up onto uneven surface) Gait Persons Needed: 1 Gait Assistive Device: FWW Wheelchair Training Does the Pt Use a Wheelchair?: Yes Distance: 20' SBA to propel /c (B) UE's, distance limited by fatgiue Wheel 50 ft with 2 turns (QC): 5 (SBA) Wheel 150 ft (QC): 88 (unable to meet distance) Type of Wheelchair: Manual Stair Training 1 Step (curb) (QC): 1 (mod (A) of 2 for safety - froze at front of step and required extensive cues, assist with walker due to tremors, and assist to accomplish) 4 Steps (QC): 88 12 Steps (QC): 88 Balance Picking up an Object (QC): 3 (min (A) using field administrative assistant) ADL-Treatment Eating (QC): 5 Oral Hygiene (QC): 5 (Pt. able to complete grooming/oral hygiene while sitting at sink. Required assist with squeezing toothpaste onto toothbrush due tremors. ) Shower/Bathe Self (QC): 2 Upper Body Dressing (QC): 4 Lower Body Dressing (QC): 4 (to don/doff brief) On/Off Footwear (QC): 5 (to don/doff socks; requiring mod A to don/doff compresion socks using sock aid) Toileting Hygiene (QC): 3 (for thoroughness ) Assessment/Plan Assessment and Plan Assess & Plan/Chief Complaint Assessment: Weakness Debility Confusion- resolved CT head without acute abnormalities CT spine without cause for weakness Aspirin Ezetimibe MRI brain- no evidence of stroke Carotid ultrasound mild disease noted Echo with negative bubble study PT/OT IRF evaluated and accepted for Tuesday Chest pain Elevated BNP Chronic HFpEF Chest pain resoved Troponin negative BNP elevated Echo with EF 70-75% HTN HLD AFib Pacemaker BPH Obesity Continue home meds as able Urinary incontinence Urinary retention Plan: PT OT Monitor BP Increase mobility 01/09/2023: Supportive care Monitor blood pressure closely 01/10/2023: Continue treatment Monitor closely 01/11/2023: Supportive care Monitor closely 01/12/2023: Supportive care Monitor blood pressure 01/13/2023: Continue treatment Improved edema Incontinence management 01/14/2023: Supportive care Monitor closely 01/15/2023: Supportive care Flomax twice daily (1) Debilitated patient Status: Acute EVELYN CASSIDY DO Jan 15, 2023 06:31
[2023-01-15 07:54] VITALS: BP 109/55
[2023-01-15] MEDS: ASPIRIN enteric coated 81MG TABLET PO SCH (09:10)
[2023-01-15] MEDS: SENNA W/DOCUSATE TABLET PO SCH ×2 (09:11→20:35)
[2023-01-15] MEDS: DOCUSATE SODIUM 100 MG CAPSULE PO SCH ×2 (09:11→20:35)
[2023-01-15] MEDS: FINASTERIDE 5 MG TABLET PO SCH (09:11)
[2023-01-15] MEDS: APIXABAN 5 MG TABLET PO SCH ×2 (09:11→20:35)
[2023-01-15] MEDS: TAMSULOSIN 0.4 MG (FLOMAX) CAP PO SCH ×2 (09:11→20:35)
[2023-01-15] MEDS: MICONAZOLE 2% POWDER 90 GM TOP SCH ×2 (09:11→20:36)
[2023-01-15 19:40] VITALS: BP 119/72
[2023-01-16] MEDS: LEVOTHYROXINE 75 MCG TABLET PO SCH (06:09)
[2023-01-16] MEDS: PRIMIDONE 250MG TABLET PO SCH (06:09)
[2023-01-16] MEDS: oxyCODONE IMMEDIATE RELEASE 5 MG TABLET PO PRN ×3 (06:09→20:30)
--- NOTE | 2023-01-16 06:42 | PM&R Progress Note ---
Subjective HPI/CC On Admission Date Seen by Provider: Jan 16, 2023 Time Seen by Provider: 12:30 Subjective/Events-last exam 01/16/2023: Patient doing well His memory recall is very poor he still asked me who I am and I have seen him every day for the last 12 days Reviewed meds and labs No falls Urinary issues seem to be resolved 01/15/2023: Patient doing pretty well Flomax twice daily has helped retention No more urinary incontinence reported Overall doing well 01/14/2023: No new issues Urinary retention required In-N-Out cath last night but now resolved Increase Flomax to twice a day Moving around a little bit better 01/13/2023: Much improved Incontinence seems to be new NO falls NO pain 01/12/2023: Patient doing well Reviewed meds and labs No falls No pain Edema improved 01/11/2023: Patient doing well Denies any new problems No falls Edema much improved 01/10/2023: Doing well Edema still present Labs stable No falls Participation is good 01/09/2023: Patient doing about the same Reviewed meds and labs No falls Pain is pretty well controlled Labs reviewed No hypoxia Review of Systems General: Fatigue, Malaise Objective Exam Vital Signs Vital Signs Date Time Temp Pulse Resp B/P (MAP) Pulse Ox O2 Delivery O2 Flow Rate FiO2 01/16/23 09:15 Room Air 01/16/23 08:00 36.4 62 16 104/52 (69) 96 Capillary Refill : General Appearance: No Apparent Distress, WD/WN, Anxious, Chronically ill HEENT: PERRL/EOMI, Normal ENT Inspection, Pharynx Normal Neck: Full Range of Motion, Normal Inspection, Non Tender, Supple, Carotid Bruit Respiratory: Chest Non Tender, Lungs Clear, Normal Breath Sounds, No Accessory Muscle Use, No Respiratory Distress Cardiovascular: No Edema, No Gallop, No JVD, No Murmur, Normal Peripheral Pulses, Irregularly Irregular Gastrointestinal: Normal Bowel Sounds, No Organomegaly, No Pulsatile Mass, Non Tender, Soft Back: Normal Inspection, No CVA Tenderness, No Vertebral Tenderness Extremity: Normal Capillary Refill, Normal Inspection, Normal Range of Motion, Non Tender, No Calf Tenderness, No Pedal Edema Neurologic/Psychiatric: Alert, Oriented x3, Abnormal Gait, Depressed Affect, Motor Weakness (generalized 3/5) Skin: Normal Color, Warm/Dry Lymphatic: No Adenopathy Results/Procedures Lab Patient resulted labs reviewed. FIM Transfers Therapy Code Descriptions/Definitions Functional [place] Measure: 0=Not Assessed/NA 4=Minimal Assistance 1=Total Assistance 5=Supervision or Setup 2=Maximal Assistance 6=Modified [place] 3=Moderate Assistance 7=Complete IndependenceSCALE: Activities may be completed with or without assistive devices. 0-Nhdjycingk-yawibhq completes the activity by him/herself with no assistance from a helper. 5-Set-up or Clean-up Assistance-helper sets up or cleans up; patient completes activity. [place] assists only prior to or following the activity. 4-Supervision or Touching Assistance-helper provides verbal cues and/or touching/steadying and/or contact guard assistance as patient completes activity. Assistance may be provided throughout the activity or intermittently. 3-Partial/Moderate Assistance-helper does LESS THAN HALF the effort. [place] lifts, holds or supports trunk or limbs, but provides less than half the effort. 2-Substantial/Maximal Assistance-helper does MORE THAN HALF the effort. [place] lifts or holds trunk or limbs and provides more than half the effort. 4-Zqieyfcqs-awfbqm does ALL the effort. Patient does none of the effort to complete the activity. Or, the assistance of 2 or more helpers is required for the patient to complete the activity. If activity was not attempted, code reason: 7-Patient Refused. 9-Not Applicable-not attempted and the patient did not perform the activity before the current illness, exacerbation or injury. 10-Not Attempted due to Environmental Limitations-(lack of equipment, weather restraints, etc.). 88-Not Attempted due to Medical Conditions or Safety Concerns. Roll Left to Right (QC): 6 ((I) using bed rail) Sit to Lying (QC): 6 Sit to Stand (QC): 4 Chair/Npx-nr-Xnqad Xfer(QC): 3 Car Transfer (QC): 3 (min (A) /c cues) Gait Training Does the Patient Walk?: Yes Distance: 100ft x 2 Walk 10 feet (QC): 4 Walk 50 ft with 2 Turns(QC): 4 Walk 150 ft (QC): 4 Walking 10ft/uneven surface-QC: 3 (Mod (A) to step up onto uneven surface) Gait Persons Needed: 1 Gait Assistive Device: FWW Wheelchair Training Does the Pt Use a Wheelchair?: Yes Distance: 20' SBA to propel /c (B) UE's, distance limited by fatgiue Wheel 50 ft with 2 turns (QC): 5 (SBA) Wheel 150 ft (QC): 88 (unable to meet distance) Type of Wheelchair: Manual Stair Training 1 Step (curb) (QC): 1 (mod (A) of 2 for safety - froze at front of step and required extensive cues, assist with walker due to tremors, and assist to accomplish) 4 Steps (QC): 88 12 Steps (QC): 88 Balance Picking up an Object (QC): 3 (min (A) using acute specialist) ADL-Treatment Eating (QC): 5 Oral Hygiene (QC): 5 (Pt. able to complete grooming/oral hygiene while sitting at sink. Required assist with squeezing toothpaste onto toothbrush due tremors. ) Shower/Bathe Self (QC): 2 Upper Body Dressing (QC): 4 Lower Body Dressing (QC): 4 (to don/doff brief) On/Off Footwear (QC): 5 (to don/doff socks; requiring mod A to don/doff compresion socks using sock aid) Toileting Hygiene (QC): 3 (for thoroughness ) Assessment/Plan Assessment and Plan Assess & Plan/Chief Complaint Assessment: Weakness Debility Confusion- resolved CT head without acute abnormalities CT spine without cause for weakness Aspirin Ezetimibe MRI brain- no evidence of stroke Carotid ultrasound mild disease noted Echo with negative bubble study PT/OT IRF evaluated and accepted for Tuesday Chest pain Elevated BNP Chronic HFpEF Chest pain resoved Troponin negative BNP elevated Echo with EF 70-75% HTN HLD AFib Pacemaker BPH Obesity Continue home meds as able Urinary incontinence Urinary retention Plan: PT OT Monitor BP Increase mobility 01/09/2023: Supportive care Monitor blood pressure closely 01/10/2023: Continue treatment Monitor closely 01/11/2023: Supportive care Monitor closely 01/12/2023: Supportive care Monitor blood pressure 01/13/2023: Continue treatment Improved edema Incontinence management 01/14/2023: Supportive care Monitor closely 01/15/2023: Supportive care Flomax twice daily 01/16/2023: Supportive care Monitor closely (1) Debilitated patient Status: Acute EVELYN CASSIDY 26, 2023 06:42
[2023-01-16 08:00] VITALS: BP 104/52
[2023-01-16] MEDS: DOCUSATE SODIUM 100 MG CAPSULE PO SCH ×2 (08:58→20:30)
[2023-01-16] MEDS: TAMSULOSIN 0.4 MG (FLOMAX) CAP PO SCH ×2 (08:58→20:30)
[2023-01-16] MEDS: APIXABAN 5 MG TABLET PO SCH ×2 (08:58→20:30)
[2023-01-16] MEDS: ASPIRIN enteric coated 81MG TABLET PO SCH (08:58)
[2023-01-16] MEDS: SENNA W/DOCUSATE TABLET PO SCH ×2 (08:58→20:30)
[2023-01-16] MEDS: FINASTERIDE 5 MG TABLET PO SCH (08:58)
[2023-01-16] MEDS: MICONAZOLE 2% POWDER 90 GM TOP SCH ×2 (09:00→20:30)
[2023-01-16 20:03] VITALS: BP 128/74
[2023-01-17] MEDS: LEVOTHYROXINE 75 MCG TABLET PO SCH (06:03)
[2023-01-17] MEDS: oxyCODONE IMMEDIATE RELEASE 5 MG TABLET PO PRN ×3 (06:03→22:28)
[2023-01-17] MEDS: PRIMIDONE 250MG TABLET PO SCH (06:03)
--- NOTE | 2023-01-17 07:09 | Occupational Ther Daily Note ---
OT Current Status-Daily Note Subjective Pt. alert sitting in recliner. No c/o pain at this time. Pt. agreed to therapy. Mental Status/Objective Patient Orientation: Person, Place, Time, Situation ADL-Treatment Pt. agreed to sponge bath. No loss of balance demonstrated during ADLs and functional mobility but he does require SBA due to unsteadiness and weakness when ambulating. After session, pt in recliner with call light and phone in reach and all needs met. Therapy Code Descriptions/Definitions Functional [place] Measure: 0=Not Assessed/NA 4=Minimal Assistance 1=Total Assistance 5=Supervision or Setup 2=Maximal Assistance 6=Modified [place] 3=Moderate Assistance 7=Complete IndependenceSCALE: Activities may be completed with or without assistive devices. 2-Arrqwukrkq-nvyvuue completes the activity by him/herself with no assistance from a helper. 5-Set-up or Clean-up Assistance-helper sets up or cleans up; patient completes activity. [place] assists only prior to or following the activity. 4-Supervision or Touching Assistance-helper provides verbal cues and/or touching/steadying and/or contact guard assistance as patient completes activity. Assistance may be provided throughout the activity or intermittently. 3-Partial/Moderate Assistance-helper does LESS THAN HALF the effort. [place] lifts, holds or supports trunk or limbs, but provides less than half the effort. 2-Substantial/Maximal Assistance-helper does MORE THAN HALF the effort. [place] lifts or holds trunk or limbs and provides more than half the effort. 0-Utohuovxs-sxehan does ALL the effort. Patient does none of the effort to complete the activity. Or, the assistance of 2 or more helpers is required for the patient to complete the activity. If activity was not attempted, code reason: 7-Patient Refused. 9-Not Applicable-not attempted and the patient did not perform the activity before the current illness, exacerbation or injury. 10-Not Attempted due to Environmental Limitations-(lack of equipment, weather restraints, etc.). 88-Not Attempted due to Medical Conditions or Safety Concerns. Eating (QC): 6 (Pt able to open containes and use regular utensils to eat.) Oral Hygiene (QC): 5 (assist with opening toothpaste cap then completed by self) Bathing Location: L Arm, R Arm, L Upper Leg, R Upper Leg, L Lower Leg (including foot), R Lower Leg (including foot), Chest, Abdomen Shower/Bathe Self (QC): 5 (After set up, pt. completed sponge bath while sitting in recliner able to clean arms, chest, abdomen and upper/lower legs by self. ) Upper Body Dressing (QC): 5 (Pt. able to don/doff UB dressing by self after set up.) Lower Body Dressing (QC): 4 (Pt. able to don LB dressing by self and stands to hike using FWW with SBA.) On/Off Footwear: 5 (Pt. able to doff/don socks completing figure 4 tech. while sitting.) Toileting Hygiene (QC): 4 (Pt. has demonstrated clothing manipulation using FWW and grabbars by self with SBA and is able to cleanse self.) Toilet Transfer (QC): 4 (Pt. has demonstrated toilet transfer using FWW and grabbars.) BIMS CAM BIMS Expression of Ideas and Wants: Without Difficulty Understanding Verbal Content: Understands Brief Interview/Mental Status: No IRF KATHARINA BIMS: IRF KATHARINA BIMS Response (Comments) Value Repitition of Three Words Three 3 Recalls Socks Yes, No Cue Required 2 Recalls Blue Yes, After Cueing (Color) 1 Recalls Bed Yes, No Cue Required 2 Year Correct 3 Month Accurate Within 5 Days 2 Day Correct 1 Total 14 Patient Normally Able to Recal: Current Session, Location of own room, Staff Names and faces, That he/she in a [facility] Should Staff Asses. Mental St.: No Memory/Recall Ability: Current Season, Location of Own Room, Staff Names and Faces, That He[facility]She in [facility] Mental Status Change/Baseline: 0 Inattention: 0 Disorganized thinkin Altered level of consciousness: 0 OT Short Term Goals Short Term Goals Time Frame: Jan 17, 2023 Eatin Oral hygiene: 5 Toileting hygiene: 5 Shower/bathe self: 3 Upper body dressin Lower body dressin Putting on/taking off footwear: 4 OT Product Picker Goals Product Picker Goals Time Frame: Jan 24, 2023 Acute change in mental status: 1 Inattention: 2 Disorganized thinkin Altered level of consciousness: 0 Eating (QC): 6 Oral Hygiene (QC): 6 Toileting Hygiene (QC): 6 Shower/Bathe Self (QC): 6 Upper Body Dressing (QC): 6 Lower Body Dressing (QC): 6 On/Off Footwear (QC): 6 1=Demonstrate adherence to instructed precautions during ADL tasks. 2=Patient will verbalize/demonstrate understanding of assistive devices/modifications for ADL. 3=Patient will improve strength/tolerance for activity to enable patient to perform ADL's. OT Education/Plan Problem List/Assessment Assessment: Decreased Safety Aware, Decreased UE Strength, Impaired Funct Balance, Impaired I ADL's, Impaired Self-Care Skills Discharge Recommendations Plan/Recommendations: Continue POC Treatment Plan/Plan of Care Patient would benefit from OT for education, treatment and training to promote independence in ADL's, mobility, safety and/or upper extremity function for ADL's. Plan of Care: ADL Retraining, Cognitive Retraining, Concurrent Therapy, Functional Mobility, Group Exercise/Act as Ind, UE Funct Exercise/Act Treatment Duration: Feb 07, 2023 Frequency: At least 5 of 7 days/Wk (IRF) Estimated Hrs Per Day: Other (75 minutes per day ) Agreement: Yes Rehab Potential: Fair Time Start Time: 07:00 Stop Time: 08:15 DATE: Jan 17, 2023 Total Time Billed (hr/min): 75 Billed Treatment Time 1 visit- ADL 5 (75 mins) BRIA LISA Jan 17, 2023 07:09
--- NOTE | 2023-01-17 07:13 | PM&R Progress Note ---
Subjective HPI/CC On Admission Date Seen by Provider: Jan 17, 2023 Time Seen by Provider: 09:00 Subjective/Events-last exam 01/17/2023: Patient doing well Short-term recall is poor No pain is reported except for back which is chronic No major concerns Bladder dysfunction has resolved 01/16/2023: Patient doing well His memory recall is very poor he still asked me who I am and I have seen him every day for the last 12 days Reviewed meds and labs No falls Urinary issues seem to be resolved 01/15/2023: Patient doing pretty well Flomax twice daily has helped retention No more urinary incontinence reported Overall doing well 01/14/2023: No new issues Urinary retention required In-N-Out cath last night but now resolved Increase Flomax to twice a day Moving around a little bit better 01/13/2023: Much improved Incontinence seems to be new NO falls NO pain 01/12/2023: Patient doing well Reviewed meds and labs No falls No pain Edema improved 01/11/2023: Patient doing well Denies any new problems No falls Edema much improved 01/10/2023: Doing well Edema still present Labs stable No falls Participation is good 01/09/2023: Patient doing about the same Reviewed meds and labs No falls Pain is pretty well controlled Labs reviewed No hypoxia Review of Systems General: Fatigue, Malaise Objective Exam Vital Signs Vital Signs Date Time Temp Pulse Resp B/P (MAP) Pulse Ox O2 Delivery O2 Flow Rate FiO2 01/17/23 21:05 36.5 67 16 117/73 (88) 95 Room Air Capillary Refill : General Appearance: No Apparent Distress, WD/WN, Anxious, Chronically ill HEENT: PERRL/EOMI, Normal ENT Inspection, Pharynx Normal Neck: Full Range of Motion, Normal Inspection, Non Tender, Supple, Carotid Bruit Respiratory: Chest Non Tender, Lungs Clear, Normal Breath Sounds, No Accessory Muscle Use, No Respiratory Distress Cardiovascular: No Edema, No Gallop, No JVD, No Murmur, Normal Peripheral Pulses, Irregularly Irregular Gastrointestinal: Normal Bowel Sounds, No Organomegaly, No Pulsatile Mass, Non Tender, Soft Back: Normal Inspection, No CVA Tenderness, No Vertebral Tenderness Extremity: Normal Capillary Refill, Normal Inspection, Normal Range of Motion, Non Tender, No Calf Tenderness, No Pedal Edema Neurologic/Psychiatric: Alert, Oriented x3, Abnormal Gait, Depressed Affect, Motor Weakness (generalized 3/5) Skin: Normal Color, Warm/Dry Lymphatic: No Adenopathy Results/Procedures Lab Patient resulted labs reviewed. FIM Transfers Therapy Code Descriptions/Definitions Functional [place] Measure: 0=Not Assessed/NA 4=Minimal Assistance 1=Total Assistance 5=Supervision or Setup 2=Maximal Assistance 6=Modified [place] 3=Moderate Assistance 7=Complete IndependenceSCALE: Activities may be completed with or without assistive devices. 3-Pqgwjgdspd-jvubmve completes the activity by him/herself with no assistance from a helper. 5-Set-up or Clean-up Assistance-helper sets up or cleans up; patient completes activity. [place] assists only prior to or following the activity. 4-Supervision or Touching Assistance-helper provides verbal cues and/or touching/steadying and/or contact guard assistance as patient completes activity. Assistance may be provided throughout the activity or intermittently. 3-Partial/Moderate Assistance-helper does LESS THAN HALF the effort. [place] lifts, holds or supports trunk or limbs, but provides less than half the effort. 2-Substantial/Maximal Assistance-helper does MORE THAN HALF the effort. [place] lifts or holds trunk or limbs and provides more than half the effort. 7-Cyvgakzlq-eieqnu does ALL the effort. Patient does none of the effort to complete the activity. Or, the assistance of 2 or more helpers is required for the patient to complete the activity. If activity was not attempted, code reason: 7-Patient Refused. 9-Not Applicable-not attempted and the patient did not perform the activity before the current illness, exacerbation or injury. 10-Not Attempted due to Environmental Limitations-(lack of equipment, weather restraints, etc.). 88-Not Attempted due to Medical Conditions or Safety Concerns. Roll Left to Right (QC): 6 ((I) using bed rail) Sit to Lying (QC): 6 Sit to Stand (QC): 4 Chair/Qey-sb-Ccqhn Xfer(QC): 3 Car Transfer (QC): 3 (min (A) /c cues) Gait Training Does the Patient Walk?: Yes Distance: 100ft x 2 Walk 10 feet (QC): 4 Walk 50 ft with 2 Turns(QC): 4 Walk 150 ft (QC): 4 Walking 10ft/uneven surface-QC: 3 (Mod (A) to step up onto uneven surface) Gait Persons Needed: 1 Gait Assistive Device: FWW Wheelchair Training Does the Pt Use a Wheelchair?: Yes Distance: 20' SBA to propel /c (B) UE's, distance limited by fatgiue Wheel 50 ft with 2 turns (QC): 5 (SBA) Wheel 150 ft (QC): 88 (unable to meet distance) Type of Wheelchair: Manual Stair Training 1 Step (curb) (QC): 1 (mod (A) of 2 for safety - froze at front of step and required extensive cues, assist with walker due to tremors, and assist to accomplish) 4 Steps (QC): 88 12 Steps (QC): 88 Balance Picking up an Object (QC): 3 (min (A) using tyre builder) ADL-Treatment Eating (QC): 5 Oral Hygiene (QC): 5 (Pt. able to complete grooming/oral hygiene while sitting at sink. Required assist with squeezing toothpaste onto toothbrush due tremors. ) Shower/Bathe Self (QC): 2 Upper Body Dressing (QC): 4 Lower Body Dressing (QC): 4 (to don/doff brief) On/Off Footwear (QC): 5 (to don/doff socks; requiring mod A to don/doff compresion socks using sock aid) Toileting Hygiene (QC): 3 (for thoroughness ) Assessment/Plan Assessment and Plan Assess & Plan/Chief Complaint Assessment: Weakness Debility Confusion- resolved but still with immediate recall deficit CT head without acute abnormalities CT spine without cause for weakness Aspirin Ezetimibe MRI brain- no evidence of stroke Carotid ultrasound mild disease noted Echo with negative bubble study PT/OT Chest pain Elevated BNP Chronic HFpEF Chest pain resoved Troponin negative BNP elevated Echo with EF 70-75% HTN HLD AFib Pacemaker BPH Obesity Continue home meds as able Urinary incontinence Urinary retention Plan: PT OT Monitor BP Increase mobility 01/09/2023: Supportive care Monitor blood pressure closely 01/10/2023: Continue treatment Monitor closely 01/11/2023: Supportive care Monitor closely 01/12/2023: Supportive care Monitor blood pressure 01/13/2023: Continue treatment Improved edema Incontinence management 01/14/2023: Supportive care Monitor closely 01/15/2023: Supportive care Flomax twice daily 01/16/2023: Supportive care Monitor closely 01/17/2023: Supportive care Discharge to home later this week (1) Debilitated patient Status: Acute EVELYN CASSIDY DO Jan 17, 2023 07:13
[2023-01-17 08:00] VITALS: BP 120/59
[2023-01-17] MEDS: TAMSULOSIN 0.4 MG (FLOMAX) CAP PO SCH ×2 (08:31→22:24)
[2023-01-17] MEDS: DOCUSATE SODIUM 100 MG CAPSULE PO SCH ×2 (08:31→22:24)
[2023-01-17] MEDS: SENNA W/DOCUSATE TABLET PO SCH ×2 (08:31→22:24)
[2023-01-17] MEDS: ASPIRIN enteric coated 81MG TABLET PO SCH (08:31)
[2023-01-17] MEDS: FINASTERIDE 5 MG TABLET PO SCH (08:31)
[2023-01-17] MEDS: APIXABAN 5 MG TABLET PO SCH ×2 (08:31→22:24)
[2023-01-17] MEDS: MICONAZOLE 2% POWDER 90 GM TOP SCH ×2 (10:22→22:24)
--- NOTE | 2023-01-17 11:07 | Speech Therapy Daily Note ---
Speech Daily Progress Note Subjective Date Seen by Provider: Jan 17, 2023 Time Seen by Provider: 08:55 Pt agreeable to session. Objective Pt participates in simple reasoning tasks and requires INCREMENT MANAGER to complete the writing portion due to tremor, however, pt was texting on his phone with no difficulties. Pt demonstrates poor attention to task, due to wanting to tell stories instead of completing tasks. Pt did not finish the simple logic grid puzzle, but required mod to max cues to complete the small amount that he did. Assessment Assessment Current Status: Fair Progress Treatment Plan Continue Plan of Care Speech Product Demonstrator Goals Residential Goals Pt will complete simple reasoning tasks to improve orientation and problem solving with 80% accuracy. Pt will demonstrate the ability to follow multi-step directions related to functional living with 80% accuracy. Pt will demonstrate recall of functional information following a short-term and long-term delay with 80% accuracy. Speech-Plan Treatment Plan Speech Therapy Treatment Plan: Continue Plan of Care Treatment Duration: Jan 10, 2023 Frequency: At least 5 of 7 days/Wk (IRF) Estimated Hrs Per Day: .5 hour per day Rehab Potential: Fair Time Speech Therapy Time In: 08:55 Speech Therapy Time Out: 09:25 DATE: Jan 17, 2023 Total Billed Time: 30 Billed Treatment Time 1 SLTS 30 min Jessica Tran Jan 17, 2023 11:07
--- NOTE | 2023-01-17 15:33 | Physical Therapy Daily Note ---
PT Daily Note-Current Subjective Pt reclined in recliner upon arrival. Pt reluctantly agreed to tx. Pt needed increased encouragement to participate and PROFESSOR OF CRIMINAL JUSTICE again told pt benefits of Therapy & why its important. Pain Location: Right, Left Location Body Site: Knee Pain Description: Ache Comment: Reports but doesn't rate Section J - Health Conditions 1. Rarely or not at all 2. Occasionally 3. Frequently 4. Almost constantly 8. Unable to answer Pain Effect on Sleep: 1 Pain Interference with Therapy: 2 Pain Interference w/Day-to-Day: 1 Mental Status Patient Orientation: Person, Place, Situation Transfers SCALE: Activities may be completed with or without assistive devices. 5-Iqnegnqxlg-cpzgwhc completes the activity by him/herself with no assistance from a helper. 5-Set-up or Clean-up Assistance-helper sets up or cleans up; patient completes activity. [place] assists only prior to or following the activity. 4-Supervision or Touching Assistance-helper provides verbal cues and/or touching/steadying and/or contact guard assistance as patient completes activity. Assistance may be provided throughout the activity or intermittently. 3-Partial/Moderate Assistance-helper does LESS THAN HALF the effort. [place] lifts, holds or supports trunk or limbs, but provides less than half the effort. 2-Substantial/Maximal Assistance-helper does MORE THAN HALF the effort. [place] lifts or holds trunk or limbs and provides more than half the effort. 1-Xorzhrglc-agevzq does ALL the effort. Patient does none of the effort to complete the activity. Or, the assistance of 2 or more helpers is required for the patient to complete the activity. If activity was not attempted, code reason: 7-Patient Refused. 9-Not Applicable-not attempted and the patient did not perform the activity before the current illness, exacerbation or injury. 10-Not Attempted due to Environmental Limitations-(lack of equipment, weather restraints, etc.). 88-Not Attempted due to Medical Conditions or Safety Concerns. Sit to Stand (QC): 5 Toilet Transfer (QC): 4 Weight Bearing Right Lower Extremity: Right Full Weight Bearing Left Lower Extremity: Left Full Weight Bearing Gait Training Does the Patient Walk?: Yes Distance: 167' Walk 10 feet (QC): 4 Walk 50 ft with 2 Turns(QC): 4 Walk 150 ft (QC): 4 Gait Persons Needed: 1 Gait Assistive Device: FWW Exercises Supine Ex: Ankle pumps, Quad Set, Glut sets, Heel Slides, Short Arc Quads, Hip abd/add Supine Reps: 10 Seated Therapy Exercises: Ankle pumps, Long arc quads, Hip flexion, Hamstring Curls, Hip abd/add Seated Reps: 10 Treatments TF from recliner to standing and amb in hallway. RB as needed. PROFESSOR OF CRIMINAL JUSTICE continues to need to give encouragement to participate throughout tx. Pt completes both Seated & Supine EX w/RB as needed. Pt returns to room to use BR for BM. After toileting, pt attempts self pericare. Pt returns to recliner to rest at end of tx. All needs met, call light in hand. Assessment Current Status: Fair Progress Pt continues to remain unmotivated & needs encouragement throughout tx to participate. Pt actively looks for topics to distract from tx or looks for activities such as using BR to use tx time (sometimes it is warranted but not always). PT Manager Willow Goals Manager Willow Goals PT Manager Willow Goals Time Frame: Jan 24, 2023 Roll Left & Right (QC): 6 Sit to Lying (QC): 6 Lying-Sitting on Side/Bed(QC): 6 Sit to Stand (QC): 6 Chair/Msh-wz-Rygld Xfer(QC): 6 (/c FWW) Toilet Transfer (QC): 6 Car Transfer (QC): 5 Does the Patient Walk: Yes Walk 10 feet (QC): 6 (/c FWW) Walk 50ft with 2 Turns (QC): 6 (/c FWW) Walk 150 ft (QC): 6 (/c FWW) Walking 10ft on Uneven Surface: 4 (SBA /c FWW) 1 Step (curb) (QC): 4 (CGA /c cues and FWW) 4 Steps (QC): 4 (/c (B) rails) 12 Steps (QC): 4 (/c (B) rails) Picking up an Object (QC): 5 (/c warehouse hand) Does the Pt use WC or Scooter?: Yes Wheel 50 feet with 2 turns (QC: 6 Type: Manual Wheel 150 feet: 6 Type: Manual PT Plan Problem List Problem List: Activity Tolerance, Functional Strength, Gait Treatment/Plan Treatment Plan: Continue Plan of Care Treatment Plan: Bed Mobility, Concurrent Therapy, Education, Functional Activity Christelle, Functional Strength, Group Therapy, Gait, Safety, Therapeutic Exercise, Transfers Treatment Duration: Jan 24, 2023 Frequency: At least 5 of 7 days/Wk (IRF) Estimated Hrs Per Day: 1.5 hours per day Patient and/or Family Agrees t: Yes Safety Risks/Education Patient Education: Gait Training, Safety Issues Teaching Recipient: Patient Teaching Methods: Discussion Response to Teaching: Verbalize Understanding Time Time In: 1400 Time Out: 1515 DATE: Jan 17, 2023 Total Billed Treatment Time: 75 Total Billed Treatment 1, GT x2 (30m), EX x2 (30m) & FA (15m) AARON BELLA PROFESSOR OF CRIMINAL JUSTICE Jan 17, 2023 15:33
[2023-01-17 21:05] VITALS: BP 117/73
[2023-01-18] MEDS: LEVOTHYROXINE 75 MCG TABLET PO SCH (06:17)
[2023-01-18] MEDS: PRIMIDONE 250MG TABLET PO SCH (06:17)
[2023-01-18] MEDS: oxyCODONE IMMEDIATE RELEASE 5 MG TABLET PO PRN ×2 (06:17→20:16)
[2023-01-18 07:18] VITALS: BP 102/66
[2023-01-18] MEDS: SENNA W/DOCUSATE TABLET PO SCH ×2 (09:15→20:15)
[2023-01-18] MEDS: TAMSULOSIN 0.4 MG (FLOMAX) CAP PO SCH ×2 (09:15→20:16)
[2023-01-18] MEDS: APIXABAN 5 MG TABLET PO SCH ×2 (09:15→20:16)
[2023-01-18] MEDS: ASPIRIN enteric coated 81MG TABLET PO SCH (09:15)
[2023-01-18] MEDS: FINASTERIDE 5 MG TABLET PO SCH (09:15)
[2023-01-18] MEDS: DOCUSATE SODIUM 100 MG CAPSULE PO SCH ×2 (09:15→20:15)
[2023-01-18] MEDS: MICONAZOLE 2% POWDER 90 GM TOP SCH ×2 (09:17→20:16)
--- NOTE | 2023-01-18 09:20 | Occupational Ther Daily Note ---
OT Current Status-Daily Note Subjective Pt received sitting in recliner. Pt pleasant and willing to participate in therapy. Pt requiring moderate encouragement throughout session to participate. Mental Status/Objective Patient Orientation: Person, Place, Time, Situation Attachments: IV ADL-Treatment Therapy Code Descriptions/Definitions Functional [place] Measure: 0=Not Assessed/NA 4=Minimal Assistance 1=Total Assistance 5=Supervision or Setup 2=Maximal Assistance 6=Modified [place] 3=Moderate Assistance 7=Complete IndependenceSCALE: Activities may be completed with or without assistive devices. 3-N[place]oba-mmucwbe completes the activity by him/herself with no assistance from a helper. 5-Set-up or Clean-up Assistance-helper sets up or cleans up; patient completes activity. [place] assists only prior to or following the activity. 4-Supervision or Touching Assistance-helper provides verbal cues and/or touching/steadying and/or contact guard assistance as patient completes activity. Assistance may be provided throughout the activity or intermittently. 3-Partial/Moderate Assistance-helper does LESS THAN HALF the effort. [place] lifts, holds or supports trunk or limbs, but provides less than half the effort. 2-Substantial/Maximal Assistance-helper does MORE THAN HALF the effort. [place] lifts or holds trunk or limbs and provides more than half the effort. 1-Afxycxaza-xsizvh does ALL the effort. Patient does none of the effort to complete the activity. Or, the assistance of 2 or more helpers is required for the patient to complete the activity. If activity was not attempted, code reason: 7-Patient Refused. 9-Not Applicable-not attempted and the patient did not perform the activity before the current illness, exacerbation or injury. 10-Not Attempted due to Environmental Limitations-(lack of equipment, weather restraints, etc.). 88-Not Attempted due to Medical Conditions or Safety Concerns. Eating (QC): 5 On/Off Footwear: 3 (to don/doff socks without use of sockaid ) Other Treatment PT/OT cotreat completed due to the need for two skilled therapists to increase safety during high level activities. OT focused on activity tolerance, ADL independence, UE strength and functional balance. Please refer to the PT note for details following PT care. Pt completed functional mobility for ~80ft, 40ft with FWW and supervision for balance, requiring min cues for safety. Pt self propelled in manual wheelchair for 40ft with supervision and no cues for safety. Pt completed dynamic standing activity, reaching outside of base of support for ~5 minutes x3 requiring supervision and no cues for safety. Pt completed functional standing activities in parallel bars to increase functional strength and balance with supervision, requiring min cues for safety and encouragement to complete activity. Pt completed laundry activity in standing with supervision and moderate cues for sequencing and to encourage pt to participate. Education OT Patient Education: Correct positioning, Energy conservation, Home exercise program, Modified ADL techniques, Progress toward Goal/Update tx plan, Purpose of tx/functional activities, Rehab process, Safety issues, Transfer techniques, Use of adapted equipment, W/C management Teaching Recipient: Patient Teaching Methods: Demonstration, Discussion Response to Teaching: Verbalize Understanding, Return Demonstration OT Short Term Goals Short Term Goals Time Frame: Jan 17, 2023 Eatin Oral hygiene: 5 Toileting hygiene: 5 Shower/bathe self: 3 Upper body dressin Lower body dressin Putting on/taking off footwear: 4 OT Skilled Nursing Goals Skilled Nursing Goals Time Frame: Jan 24, 2023 Acute change in mental status: 0 Inattention: 0 Disorganized thinkin Altered level of consciousness: 0 Eating (QC): 6 Oral Hygiene (QC): 6 Toileting Hygiene (QC): 6 Shower/Bathe Self (QC): 6 Upper Body Dressing (QC): 6 Lower Body Dressing (QC): 6 On/Off Footwear (QC): 6 1=Demonstrate adherence to instructed precautions during ADL tasks. 2=Patient will verbalize/demonstrate understanding of assistive devices/modifications for ADL. 3=Patient will improve strength/tolerance for activity to enable patient to perform ADL's. OT Education/Plan Problem List/Assessment Assessment: Decreased Activ Tolerance, Decreased Safety Aware, Decreased UE Strength, Impaired Bed Mobility, Impaired Cognition, Impaired Coordination, Impaired Funct Balance, Impaired I ADL's, Impaired Self-Care Skills Discharge Recommendations Plan/Recommendations: Continue POC Treatment Plan/Plan of Care Treatment,Training & Education: Yes Patient would benefit from OT for education, treatment and training to promote independence in ADL's, mobility, safety and/or upper extremity function for ADL's. Plan of Care: ADL Retraining, Cognitive Retraining, Concurrent Therapy, Functional Mobility, Group Exercise/Act as Ind, UE Funct Exercise/Act Treatment Duration: Feb 07, 2023 Frequency: At least 5 of 7 days/Wk (IRF) Estimated Hrs Per Day: Other (75 minutes per day ) Agreement: Yes Rehab Potential: Fair Time Start Time: 08:00 ([id number] OT/PT cotreat) Stop Time: 09:15 DATE: Jan 18, 2023 Total Time Billed (hr/min): 75 Billed Treatment Time 1, ADL 2, FA 3 Kavitha Coelho OTR/L Jan 18, 2023 09:20
--- NOTE | 2023-01-18 09:25 | Physical Therapy Daily Note ---
PT Daily Note-Current Subjective Pt presents sitting in recliner with B feet elevated. Pt is agreeable to PT/OT cotreat. Pt reports 10/10 pain in (B) LE during tx. Pt required moderate reinforcement to participate. Pain Section J - Health Conditions 1. Rarely or not at all 2. Occasionally 3. Frequently 4. Almost constantly 8. Unable to answer Pain Effect on Sleep: 1 Pain Interference with Therapy: 2 Pain Interference w/Day-to-Day: 1 Mental Status Patient Orientation: Person, Confused, Situation Transfers SCALE: Activities may be completed with or without assistive devices. 2-Jfpmpzphku-rcyqlrb completes the activity by him/herself with no assistance from a helper. 5-Set-up or Clean-up Assistance-helper sets up or cleans up; patient completes activity. [place] assists only prior to or following the activity. 4-Supervision or Touching Assistance-helper provides verbal cues and/or touching/steadying and/or contact guard assistance as patient completes activity. Assistance may be provided throughout the activity or intermittently. 3-Partial/Moderate Assistance-helper does LESS THAN HALF the effort. [place] lifts, holds or supports trunk or limbs, but provides less than half the effort. 2-Substantial/Maximal Assistance-helper does MORE THAN HALF the effort. [place] lifts or holds trunk or limbs and provides more than half the effort. 3-Yhkpwwdxz-vtnbwm does ALL the effort. Patient does none of the effort to complete the activity. Or, the assistance of 2 or more helpers is required for the patient to complete the activity. If activity was not attempted, code reason: 7-Patient Refused. 9-Not Applicable-not attempted and the patient did not perform the activity before the current illness, exacerbation or injury. 10-Not Attempted due to Environmental Limitations-(lack of equipment, weather restraints, etc.). 88-Not Attempted due to Medical Conditions or Safety Concerns. Sit to Stand (QC): 4 Chair/Ifw-in-Zrxto Xfer(QC): 4 Weight Bearing Right Lower Extremity: Right Full Weight Bearing Left Lower Extremity: Left Full Weight Bearing Gait Training Does the Patient Walk?: Yes Walk 10 feet (QC): 4 Walk 50 ft with 2 Turns(QC): 4 Gait Assistive Device: FWW Pt amb 40' + 80' /c FWW, CGA for safety and steadying. Wheelchair Training Does the Pt Use a Wheelchair?: Yes Wheel 50 ft with 2 turns (QC): 4 Type of Wheelchair: Manual Pt performed W/C mobility x 40' /c SBA for safety and vc's. Exercises Standing: Hip Abduction, Heel/toe raises, Sit to Stand, Step-ups, Weight shifts Standing Reps: 10 THER EX conducted in (II). Step-up's x 5 reps. Weight shifts (B) LE x 5 reps. Neuromuscular NM standing in (II) activity with villafana bags, focusing on dynamic standing balance and reaching out of ABDIRAHMAN. Treatments PT/OT cotreat completed due to the need for two skilled therapists to increase safety during high level activities. OT focused on activity tolerance, ADL independence, UE strength and functional balance. PT focused on transfers, ambulation and (B) LE strengthening. Pt completed functional mobility for ~80ft, 40ft with FWW and supervision for balance, requiring min cues for safety. Pt self propelled in manual wheelchair for 40ft with supervision and no cues for safety. Pt completed dynamic standing activity, reaching outside of base of support for ~5 minutes x3 requiring supervision and no cues for safety. Pt completed functional standing activities in parallel bars to increase functional strength and balance with supervision, requiring min cues for safety and encouragement to complete activity. Pt completed laundry activity in standing with supervision and moderate cues for sequencing and to encourage pt to participate. Post tx with pt in recliner, call light within reach and all needs met. Assessment Current Status: Good Progress Pt required multiple RB's secondary to pain and fatigue. PT Group Home Goals Bacteriologist Medical Goals PT Bacteriologist Medical Goals Time Frame: Jan 24, 2023 Roll Left & Right (QC): 6 Sit to Lying (QC): 6 Lying-Sitting on Side/Bed(QC): 6 Sit to Stand (QC): 6 Chair/Hum-jn-Czkvf Xfer(QC): 6 (/c FWW) Toilet Transfer (QC): 6 Car Transfer (QC): 5 Does the Patient Walk: Yes Walk 10 feet (QC): 6 (/c FWW) Walk 50ft with 2 Turns (QC): 6 (/c FWW) Walk 150 ft (QC): 6 (/c FWW) Walking 10ft on Uneven Surface: 4 (SBA /c FWW) 1 Step (curb) (QC): 4 (CGA /c cues and FWW) 4 Steps (QC): 4 (/c (B) rails) 12 Steps (QC): 4 (/c (B) rails) Picking up an Object (QC): 5 (/c fish frog or oyster farmer) Does the Pt use WC or Scooter?: Yes Wheel 50 feet with 2 turns (QC: 6 Type: Manual Wheel 150 feet: 6 Type: Manual PT Plan Problem List Problem List: Activity Tolerance, Functional Strength, Safety Treatment/Plan Treatment Plan: Continue Plan of Care Treatment Plan: Bed Mobility, Concurrent Therapy, Education, Functional Activity Christelle, Functional Strength, Group Therapy, Gait, Safety, Therapeutic Exercise, Transfers Treatment Duration: Jan 24, 2023 Frequency: At least 5 of 7 days/Wk (IRF) Estimated Hrs Per Day: 1.5 hours per day Patient and/or Family Agrees t: Yes Safety Risks/Education Patient Education: Gait Training, Steps, Safety Issues Teaching Recipient: Patient Teaching Methods: Discussion Response to Teaching: Verbalize Understanding, Reinforcement Needed Discharge Recommendations Plan Continue with tx per pt POC. Time Time In: 799 Time Out: 914 DATE: Jan 18, 2023 Total Billed Treatment Time: 75 Total Billed Treatment 1, GT (15m), FA2 (30m), EX2 (30m). CoTreat with OT: () (75m). MIGUEL CAMERON ASSISTANT PLANT MANAGER Jan 18, 2023 09:25
--- NOTE | 2023-01-18 10:46 | PM&R Progress Note ---
Subjective HPI/CC On Admission Date Seen by Provider: Jan 18, 2023 Time Seen by Provider: 11:00 Subjective/Events-last exam 01/18/2023: Patient doing about the same Discharge planned on No falls No pain 01/17/2023: Patient doing well Short-term recall is poor No pain is reported except for back which is chronic No major concerns Bladder dysfunction has resolved 01/16/2023: Patient doing well His memory recall is very poor he still asked me who I am and I have seen him every day for the last 12 days Reviewed meds and labs No falls Urinary issues seem to be resolved 01/15/2023: Patient doing pretty well Flomax twice daily has helped retention No more urinary incontinence reported Overall doing well 01/14/2023: No new issues Urinary retention required In-N-Out cath last night but now resolved Increase Flomax to twice a day Moving around a little bit better 01/13/2023: Much improved Incontinence seems to be new NO falls NO pain 01/12/2023: Patient doing well Reviewed meds and labs No falls No pain Edema improved 01/11/2023: Patient doing well Denies any new problems No falls Edema much improved 01/10/2023: Doing well Edema still present Labs stable No falls Participation is good 01/09/2023: Patient doing about the same Reviewed meds and labs No falls Pain is pretty well controlled Labs reviewed No hypoxia Review of Systems General: Fatigue, Malaise Objective Exam Vital Signs Vital Signs Date Time Temp Pulse Resp B/P (MAP) Pulse Ox O2 Delivery O2 Flow Rate FiO2 01/18/23 20:01 36.6 69 16 131/71 (91) 93 Room Air Capillary Refill : General Appearance: No Apparent Distress, WD/WN, Anxious, Chronically ill HEENT: PERRL/EOMI, Normal ENT Inspection, Pharynx Normal Neck: Full Range of Motion, Normal Inspection, Non Tender, Supple, Carotid Bruit Respiratory: Chest Non Tender, Lungs Clear, Normal Breath Sounds, No Accessory Muscle Use, No Respiratory Distress Cardiovascular: No Edema, No Gallop, No JVD, No Murmur, Normal Peripheral Pulses, Irregularly Irregular Gastrointestinal: Normal Bowel Sounds, No Organomegaly, No Pulsatile Mass, Non Tender, Soft Back: Normal Inspection, No CVA Tenderness, No Vertebral Tenderness Extremity: Normal Capillary Refill, Normal Inspection, Normal Range of Motion, Non Tender, No Calf Tenderness, No Pedal Edema Neurologic/Psychiatric: Alert, Oriented x3, Abnormal Gait, Depressed Affect, Motor Weakness (generalized 3/5) Skin: Normal Color, Warm/Dry Lymphatic: No Adenopathy Results/Procedures Lab Patient resulted labs reviewed. FIM Transfers Therapy Code Descriptions/Definitions Functional [place] Measure: 0=Not Assessed/NA 4=Minimal Assistance 1=Total Assistance 5=Supervision or Setup 2=Maximal Assistance 6=Modified [place] 3=Moderate Assistance 7=Complete IndependenceSCALE: Activities may be completed with or without assistive devices. 4-Egqgkpkvls-szymwpj completes the activity by him/herself with no assistance from a helper. 5-Set-up or Clean-up Assistance-helper sets up or cleans up; patient completes activity. [place] assists only prior to or following the activity. 4-Supervision or Touching Assistance-helper provides verbal cues and/or touching/steadying and/or contact guard assistance as patient completes activity. Assistance may be provided throughout the activity or intermittently. 3-Partial/Moderate Assistance-helper does LESS THAN HALF the effort. [place] lifts, holds or supports trunk or limbs, but provides less than half the effort. 2-Substantial/Maximal Assistance-helper does MORE THAN HALF the effort. [place] lifts or holds trunk or limbs and provides more than half the effort. 6-Ourmcnqrx-bnwevq does ALL the effort. Patient does none of the effort to complete the activity. Or, the assistance of 2 or more helpers is required for the patient to complete the activity. If activity was not attempted, code reason: 7-Patient Refused. 9-Not Applicable-not attempted and the patient did not perform the activity before the current illness, exacerbation or injury. 10-Not Attempted due to Environmental Limitations-(lack of equipment, weather restraints, etc.). 88-Not Attempted due to Medical Conditions or Safety Concerns. Roll Left to Right (QC): 6 ((I) using bed rail) Sit to Lying (QC): 6 Sit to Stand (QC): 4 Chair/Hhd-jp-Xxbgh Xfer(QC): 4 Car Transfer (QC): 3 (min (A) /c cues) Gait Training Does the Patient Walk?: Yes Distance: 167' Walk 10 feet (QC): 4 Walk 50 ft with 2 Turns(QC): 4 Walk 150 ft (QC): 4 Walking 10ft/uneven surface-QC: 3 (Mod (A) to step up onto uneven surface) Gait Persons Needed: 1 Gait Assistive Device: FWW Wheelchair Training Does the Pt Use a Wheelchair?: Yes Distance: 20' SBA to propel /c (B) UE's, distance limited by fatgiue Wheel 50 ft with 2 turns (QC): 4 Wheel 150 ft (QC): 88 (unable to meet distance) Type of Wheelchair: Manual Stair Training 1 Step (curb) (QC): 1 (mod (A) of 2 for safety - froze at front of step and required extensive cues, assist with walker due to tremors, and assist to accomplish) 4 Steps (QC): 88 12 Steps (QC): 88 Balance Picking up an Object (QC): 3 (min (A) using roller inspector and mender) ADL-Treatment Eating (QC): 5 Oral Hygiene (QC): 5 (assist with opening toothpaste cap then completed by self) Bathing Location: L Arm, R Arm, L Upper Leg, R Upper Leg, L Lower Leg (including foot), R Lower Leg (including foot), Chest, Abdomen Shower/Bathe Self (QC): 5 (After set up, pt. completed sponge bath while sitting in recliner able to clean arms, chest, abdomen and upper/lower legs by self. ) Upper Body Dressing (QC): 5 (Pt. able to don/doff UB dressing by self after set up.) Lower Body Dressing (QC): 4 (Pt. able to don LB dressing by self and stands to hike using FWW with SBA.) On/Off Footwear (QC): 3 (to don/doff socks without use of sockaid ) Toileting Hygiene (QC): 4 (Pt. has demonstrated clothing manipulation using FWW and grabbars by self with SBA and is able to cleanse self.) Toilet Transfer (QC): 4 (Pt. has demonstrated toilet transfer using FWW and grabbars.) Assessment/Plan Assessment and Plan Assess & Plan/Chief Complaint Assessment: Weakness Debility Confusion- resolved but still with immediate recall deficit CT head without acute abnormalities CT spine without cause for weakness Aspirin Ezetimibe MRI brain- no evidence of stroke Carotid ultrasound mild disease noted Echo with negative bubble study PT/OT Chest pain Elevated BNP Chronic HFpEF Chest pain resoved Troponin negative BNP elevated Echo with EF 70-75% HTN HLD AFib Pacemaker BPH Obesity Continue home meds as able Urinary incontinence Urinary retention Plan: PT OT Monitor BP Increase mobility 01/09/2023: Supportive care Monitor blood pressure closely 01/10/2023: Continue treatment Monitor closely 01/11/2023: Supportive care Monitor closely 01/12/2023: Supportive care Monitor blood pressure 01/13/2023: Continue treatment Improved edema Incontinence management 01/14/2023: Supportive care Monitor closely 01/15/2023: Supportive care Flomax twice daily 01/16/2023: Supportive care Monitor closely 01/17/2023: Supportive care Discharge to home later this week 01/18/2023: Supportive care Monitor closely (1) Debilitated patient Status: Acute EVELYN CASSIDY DO Jan 18, 2023 10:46
--- NOTE | 2023-01-18 13:38 | Physical Therapy Progress Note ---
Therapy Progress Note Patient is able to ambulate 40' + 80' with Front Wheeled Walker, with Stand-by Assist for safety and verbal/tactile cues. Pt performs wheelchair mobility from room to therapy gym. Pt can complete now-gs-reywg transfers with contact-guard assist for steadying, with extra-time allowance for pt to complete. Pt has no resting tremor but does present with mobility tremors that affect his progress and ability to complete ADL's and functional mobility. MIGUEL CAMERON RN CAMP Jan 18, 2023 13:38
--- NOTE | 2023-01-18 13:45 | Speech Therapy Daily Note ---
Speech Daily Progress Note Subjective Date Seen by Provider: Jan 18, 2023 Time Seen by Provider: 10:25 Pt requires encouragement to participate Objective Pt demonstrates poor ST and LT recall of functional information. Pt participates in simple reasoning tasks and requires mod encouragement to participate and completes with 45% accuracy. Assessment Assessment Current Status: Poor Progress Treatment Plan Continue Plan of Care Speech Livestock Counter Goals Mcfp Goals Pt will complete simple reasoning tasks to improve orientation and problem solving with 80% accuracy. Pt will demonstrate the ability to follow multi-step directions related to functional living with 80% accuracy. Pt will demonstrate recall of functional information following a short-term and long-term delay with 80% accuracy. Speech-Plan Treatment Plan Speech Therapy Treatment Plan: Continue Plan of Care Treatment Duration: Jan 10, 2023 Frequency: At least 5 of 7 days/Wk (IRF) Estimated Hrs Per Day: .5 hour per day Rehab Potential: Fair Time Speech Therapy Time In: 10:25 Speech Therapy Time Out: 10:55 DATE: Jan 18, 2023 Total Billed Time: 30 Billed Treatment Time 1 SLTS 30 min Jessica Tran Jan 18, 2023 13:45
[2023-01-18 20:01] VITALS: BP 131/71
[2023-01-19] MEDS: oxyCODONE IMMEDIATE RELEASE 5 MG TABLET PO PRN ×4 (04:19→23:49)
--- NOTE | 2023-01-19 06:26 | PM&R Progress Note ---
Subjective HPI/CC On Admission Date Seen by Provider: Jan 19, 2023 Time Seen by Provider: 12:30 Subjective/Events-last exam 01/19/2023: Patient doing really well Discharge plan for tomorrow His cognition is definitely deficient since I introduce myself every day 01/18/2023: Patient doing about the same Discharge planned on No falls No pain 01/17/2023: Patient doing well Short-term recall is poor No pain is reported except for back which is chronic No major concerns Bladder dysfunction has resolved 01/16/2023: Patient doing well His memory recall is very poor he still asked me who I am and I have seen him every day for the last 12 days Reviewed meds and labs No falls Urinary issues seem to be resolved 01/15/2023: Patient doing pretty well Flomax twice daily has helped retention No more urinary incontinence reported Overall doing well 01/14/2023: No new issues Urinary retention required In-N-Out cath last night but now resolved Increase Flomax to twice a day Moving around a little bit better 01/13/2023: Much improved Incontinence seems to be new NO falls NO pain 01/12/2023: Patient doing well Reviewed meds and labs No falls No pain Edema improved 01/11/2023: Patient doing well Denies any new problems No falls Edema much improved 01/10/2023: Doing well Edema still present Labs stable No falls Participation is good 01/09/2023: Patient doing about the same Reviewed meds and labs No falls Pain is pretty well controlled Labs reviewed No hypoxia Review of Systems General: Fatigue, Malaise Objective Exam Vital Signs Vital Signs Date Time Temp Pulse Resp B/P (MAP) Pulse Ox O2 Delivery O2 Flow Rate FiO2 01/19/23 19:47 36.6 78 18 128/76 (93) 97 Room Air Capillary Refill : General Appearance: No Apparent Distress, WD/WN, Anxious, Chronically ill HEENT: PERRL/EOMI, Normal ENT Inspection, Pharynx Normal Neck: Full Range of Motion, Normal Inspection, Non Tender, Supple, Carotid Bruit Respiratory: Chest Non Tender, Lungs Clear, Normal Breath Sounds, No Accessory Muscle Use, No Respiratory Distress Cardiovascular: No Edema, No Gallop, No JVD, No Murmur, Normal Peripheral Pulses, Irregularly Irregular Gastrointestinal: Normal Bowel Sounds, No Organomegaly, No Pulsatile Mass, Non Tender, Soft Back: Normal Inspection, No CVA Tenderness, No Vertebral Tenderness Extremity: Normal Capillary Refill, Normal Inspection, Normal Range of Motion, Non Tender, No Calf Tenderness, No Pedal Edema Neurologic/Psychiatric: Alert, Oriented x3, Abnormal Gait, Depressed Affect, Motor Weakness (generalized 3/5) Skin: Normal Color, Warm/Dry Lymphatic: No Adenopathy Results/Procedures Lab Patient resulted labs reviewed. FIM Transfers Therapy Code Descriptions/Definitions Functional [place] Measure: 0=Not Assessed/NA 4=Minimal Assistance 1=Total Assistance 5=Supervision or Setup 2=Maximal Assistance 6=Modified [place] 3=Moderate Assistance 7=Complete IndependenceSCALE: Activities may be completed with or without assistive devices. 3-Ygkrgftisc-drildch completes the activity by him/herself with no assistance from a helper. 5-Set-up or Clean-up Assistance-helper sets up or cleans up; patient completes activity. [place] assists only prior to or following the activity. 4-Supervision or Touching Assistance-helper provides verbal cues and/or touching/steadying and/or contact guard assistance as patient completes activity. Assistance may be provided throughout the activity or intermittently. 3-Partial/Moderate Assistance-helper does LESS THAN HALF the effort. [place] lifts, holds or supports trunk or limbs, but provides less than half the effort. 2-Substantial/Maximal Assistance-helper does MORE THAN HALF the effort. [place] lifts or holds trunk or limbs and provides more than half the effort. 9-Nmgmnojkj-najbfs does ALL the effort. Patient does none of the effort to complete the activity. Or, the assistance of 2 or more helpers is required for the patient to complete the activity. If activity was not attempted, code reason: 7-Patient Refused. 9-Not Applicable-not attempted and the patient did not perform the activity before the current illness, exacerbation or injury. 10-Not Attempted due to Environmental Limitations-(lack of equipment, weather restraints, etc.). 88-Not Attempted due to Medical Conditions or Safety Concerns. Roll Left to Right (QC): 6 ((I) using bed rail) Sit to Lying (QC): 6 Sit to Stand (QC): 4 Chair/Bto-zm-Dfqyb Xfer(QC): 4 Car Transfer (QC): 3 (min (A) /c cues) Gait Training Does the Patient Walk?: Yes Distance: 167' Walk 10 feet (QC): 4 Walk 50 ft with 2 Turns(QC): 4 Walk 150 ft (QC): 4 Walking 10ft/uneven surface-QC: 3 (Mod (A) to step up onto uneven surface) Gait Persons Needed: 1 Gait Assistive Device: FWW Wheelchair Training Does the Pt Use a Wheelchair?: Yes Distance: 20' SBA to propel /c (B) UE's, distance limited by fatgiue Wheel 50 ft with 2 turns (QC): 4 Wheel 150 ft (QC): 88 (unable to meet distance) Type of Wheelchair: Manual Stair Training 1 Step (curb) (QC): 1 (mod (A) of 2 for safety - froze at front of step and required extensive cues, assist with walker due to tremors, and assist to accomplish) 4 Steps (QC): 88 12 Steps (QC): 88 Balance Picking up an Object (QC): 3 (min (A) using heat welder plastics) ADL-Treatment Eating (QC): 5 Oral Hygiene (QC): 5 (assist with opening toothpaste cap then completed by self) Bathing Location: L Arm, R Arm, L Upper Leg, R Upper Leg, L Lower Leg (including foot), R Lower Leg (including foot), Chest, Abdomen Shower/Bathe Self (QC): 5 (After set up, pt. completed sponge bath while sitting in recliner able to clean arms, chest, abdomen and upper/lower legs by self. ) Upper Body Dressing (QC): 5 (Pt. able to don/doff UB dressing by self after set up.) Lower Body Dressing (QC): 4 (Pt. able to don LB dressing by self and stands to hike using FWW with SBA.) On/Off Footwear (QC): 3 (to don/doff socks without use of sockaid ) Toileting Hygiene (QC): 4 (Pt. has demonstrated clothing manipulation using FWW and grabbars by self with SBA and is able to cleanse self.) Toilet Transfer (QC): 4 (Pt. has demonstrated toilet transfer using FWW and grabbars.) Assessment/Plan Assessment and Plan Assess & Plan/Chief Complaint Assessment: Weakness Debility Confusion- resolved but still with immediate recall deficit CT head without acute abnormalities CT spine without cause for weakness Aspirin Ezetimibe MRI brain- no evidence of stroke Carotid ultrasound mild disease noted Echo with negative bubble study PT/OT Chest pain Elevated BNP Chronic HFpEF Chest pain resoved Troponin negative BNP elevated Echo with EF 70-75% HTN HLD AFib Pacemaker BPH Obesity Continue home meds as able Urinary incontinence Urinary retention Plan: PT OT Monitor BP Increase mobility 01/09/2023: Supportive care Monitor blood pressure closely 01/10/2023: Continue treatment Monitor closely 01/11/2023: Supportive care Monitor closely 01/12/2023: Supportive care Monitor blood pressure 01/13/2023: Continue treatment Improved edema Incontinence management 01/14/2023: Supportive care Monitor closely 01/15/2023: Supportive care Flomax twice daily 01/16/2023: Supportive care Monitor closely 01/17/2023: Supportive care Discharge to home later this week 01/18/2023: Supportive care Monitor closely 01/19/2023: Supportive care Monitor closely (1) Debilitated patient Status: Acute EVELYN CASSIDY DO Jan 19, 2023 06:26
[2023-01-19] MEDS: LEVOTHYROXINE 75 MCG TABLET PO SCH (06:29)
[2023-01-19] MEDS: PRIMIDONE 250MG TABLET PO SCH (06:29)
[2023-01-19 07:43] VITALS: BP 116/57
--- NOTE | 2023-01-19 08:07 | Physical Therapy Daily Note ---
PT Daily Note-Current Subjective No new complaints. States he always has pain but it is no worse this am. States he had a good breakfast. Patient does not recall this therapist from evaluation. Patient reluctant to perform therapy activities. While upright, states his knees are killing him. Co-treat with OT 8-9:15 am due to activity tolerance deficits and patient requiring 2 person assist steps/curbs. Pain Section J - Health Conditions 1. Rarely or not at all 2. Occasionally 3. Frequently 4. Almost constantly 8. Unable to answer Pain Effect on Sleep: 1 Pain Interference with Therapy: 2 Pain Interference w/Day-to-Day: 1 Transfers SCALE: Activities may be completed with or without assistive devices. 4-Bpbyswlwzp-slqdpne completes the activity by him/herself with no assistance from a helper. 5-Set-up or Clean-up Assistance-helper sets up or cleans up; patient completes activity. [place] assists only prior to or following the activity. 4-Supervision or Touching Assistance-helper provides verbal cues and/or touching/steadying and/or contact guard assistance as patient completes activity. Assistance may be provided throughout the activity or intermittently. 3-Partial/Moderate Assistance-helper does LESS THAN HALF the effort. [place] lifts, holds or supports trunk or limbs, but provides less than half the effort. 2-Substantial/Maximal Assistance-helper does MORE THAN HALF the effort. [place] lifts or holds trunk or limbs and provides more than half the effort. 3-Lwrcboplg-liwpgk does ALL the effort. Patient does none of the effort to complete the activity. Or, the assistance of 2 or more helpers is required for the patient to complete the activity. If activity was not attempted, code reason: 7-Patient Refused. 9-Not Applicable-not attempted and the patient did not perform the activity before the current illness, exacerbation or injury. 10-Not Attempted due to Environmental Limitations-(lack of equipment, weather restraints, etc.). 88-Not Attempted due to Medical Conditions or Safety Concerns. Roll Left & Right (QC): 6 (with bed rail to (L), none to (R)) Sit to Lying (QC): 6 Lying to Sitting/Side of Bed(Q: 6 (/s bed rail use) Sit to Stand (QC): 4 (CGA, increased time to complete) Chair/Qzm-tr-Xxnfn Xfer(QC): 4 (CGA /c FWW) Toilet Transfer (QC): 4 (CGA /c FWW and cues) Car Transfer (QC): 4 (/c FWW) Weight Bearing Right Lower Extremity: Right Full Weight Bearing Left Lower Extremity: Left Full Weight Bearing Gait Training Distance: 97' Walk 10 feet (QC): 4 (CGA /c FWW) Walk 50 ft with 2 Turns(QC): 4 (/c FWW CGA) Walk 150 ft (QC): 88 (unable to make 150' due to knee pain, endurance) Walking 10ft/uneven surface-QC: 4 (CGA /c FWW) Gait Assistive Device: FWW Wheelchair Training Does the Pt Use a Wheelchair?: Yes Wheel 50 ft with 2 turns (QC): 6 Wheel 150 ft (QC): 6 Type of Wheelchair: Manual Stair Training 1 Step (curb) (QC): 1 (mod (A) of 2 - required assist of 2 people for stepping up and walker management coming down curb) 4 Steps (QC): 1 (min (A) of 2 /c significantly increased time to complete) 12 Steps (QC): 88 (not safe due to pain and activity tolerance limitations) Balance Picking up an Object (QC): 4 (CGA using [employer] certified network professional) Special Test Comments Elderly Mobility Scale: 10/10. (compared to 09/09 at [facility]). Assessment QC's captured today for D/C planned for 01/20/23. Patient will require physical assist of nephew to enter home. Recommend in-home care for patient. PT Mamma Logist Goals Snf Goals PT Snf Goals Time Frame: Jan 24, 2023 Roll Left & Right (QC): 6 Sit to Lying (QC): 6 Lying-Sitting on Side/Bed(QC): 6 Sit to Stand (QC): 6 Chair/Ldm-jm-Qcaql Xfer(QC): 6 (/c FWW) Toilet Transfer (QC): 6 Car Transfer (QC): 5 Does the Patient Walk: Yes Walk 10 feet (QC): 6 (/c FWW) Walk 50ft with 2 Turns (QC): 6 (/c FWW) Walk 150 ft (QC): 6 (/c FWW) Walking 10ft on Uneven Surface: 4 (SBA /c FWW) 1 Step (curb) (QC): 4 (CGA /c cues and FWW) 4 Steps (QC): 4 (/c (B) rails) 12 Steps (QC): 4 (/c (B) rails) Picking up an Object (QC): 5 (/c [employer] certified network professional) Does the Pt use WC or Scooter?: Yes Wheel 50 feet with 2 turns (QC: 6 Type: Manual Wheel 150 feet: 6 Type: Manual PT Plan Treatment/Plan Treatment Plan: Continue Plan of Care Treatment Plan: Bed Mobility, Concurrent Therapy, Education, Functional Activity Christelle, Functional Strength, Group Therapy, Gait, Safety, Therapeutic Exercise, Transfers Treatment Duration: Jan 24, 2023 Frequency: At least 5 of 7 days/Wk (IRF) Estimated Hrs Per Day: 1.5 hours per day Patient and/or Family Agrees t: Yes Time Time In: 800 Time Out: 915 DATE: Jan 19, 2023 Total Billed Treatment Time: 75 Total Billed Treatment co-treat 8-9:15 am - 2FA, 3 GT Shirley Lamb PT Jan 19, 2023 08:07
[2023-01-19] MEDS: APIXABAN 5 MG TABLET PO SCH ×2 (08:47→19:35)
[2023-01-19] MEDS: FINASTERIDE 5 MG TABLET PO SCH (08:47)
[2023-01-19] MEDS: DOCUSATE SODIUM 100 MG CAPSULE PO SCH ×2 (08:47→19:42)
[2023-01-19] MEDS: SENNA W/DOCUSATE TABLET PO SCH ×2 (08:48→19:42)
[2023-01-19] MEDS: ASPIRIN enteric coated 81MG TABLET PO SCH (08:48)
[2023-01-19] MEDS: TAMSULOSIN 0.4 MG (FLOMAX) CAP PO SCH ×2 (08:48→19:35)
[2023-01-19] MEDS: MICONAZOLE 2% POWDER 90 GM TOP SCH ×2 (08:48→19:37)
--- NOTE | 2023-01-19 11:06 | Speech Therapy Daily Note ---
Speech Daily Progress Note Subjective Date Seen by Provider: Jan 19, 2023 Time Seen by Provider: 10:30 Pt requires encouragement to participate Objective Pt completes functional recall tasks and requires mod encouragement to participate. Pt demonstrates poor attention to task, which affects progress. Assessment Assessment Current Status: Poor Progress Treatment Plan Continue Plan of Care Speech Financial Management Goals Financial Management Goals Pt will complete simple reasoning tasks to improve orientation and problem solving with 80% accuracy. Pt will demonstrate the ability to follow multi-step directions related to functional living with 80% accuracy. Pt will demonstrate recall of functional information following a short-term and long-term delay with 80% accuracy. Speech-Plan Treatment Plan Speech Therapy Treatment Plan: Continue Plan of Care Treatment Duration: Jan 10, 2023 Frequency: At least 5 of 7 days/Wk (IRF) Estimated Hrs Per Day: .5 hour per day Rehab Potential: Fair Time Speech Therapy Time In: 10:30 Speech Therapy Time Out: 11:00 DATE: Jan 19, 2023 Total Billed Time: 30 Billed Treatment Time 1 SLTS 30 min Jessica Tran Jan 19, 2023 11:06
--- NOTE | 2023-01-19 13:19 | Occupational Ther Daily Note ---
OT Current Status-Daily Note Subjective Pt received sitting in recliner. Pt pleasant and willing to participate in therapy, though requiring cues and encouragement to continue to participate throughout therapy session. Mental Status/Objective Patient Orientation: Person, Place, Time, Situation ADL-Treatment Therapy Code Descriptions/Definitions Functional [place] Measure: 0=Not Assessed/NA 4=Minimal Assistance 1=Total Assistance 5=Supervision or Setup 2=Maximal Assistance 6=Modified [place] 3=Moderate Assistance 7=Complete IndependenceSCALE: Activities may be completed with or without assistive devices. 9-Tgzvaxxrwy-tqxtsob completes the activity by him/herself with no assistance from a helper. 5-Set-up or Clean-up Assistance-helper sets up or cleans up; patient completes activity. [place] assists only prior to or following the activity. 4-Supervision or Touching Assistance-helper provides verbal cues and/or touching/steadying and/or contact guard assistance as patient completes activity. Assistance may be provided throughout the activity or intermittently. 3-Partial/Moderate Assistance-helper does LESS THAN HALF the effort. [place] lifts, holds or supports trunk or limbs, but provides less than half the effort. 2-Substantial/Maximal Assistance-helper does MORE THAN HALF the effort. [place] lifts or holds trunk or limbs and provides more than half the effort. 3-Xjjghcjdk-vjqncq does ALL the effort. Patient does none of the effort to complete the activity. Or, the assistance of 2 or more helpers is required for the patient to complete the activity. If activity was not attempted, code reason: 7-Patient Refused. 9-Not Applicable-not attempted and the patient did not perform the activity be fore the current illness, exacerbation or injury. 10-Not Attempted due to Environmental Limitations-(lack of equipment, weather restraints, etc.). 88-Not Attempted due to Medical Conditions or Safety Concerns. Eating (QC): 6 Oral Hygiene (QC): 6 (standing at sink ) Bathing Location: L Arm, R Arm, L Upper Leg, R Upper Leg, L Lower Leg (including foot), R Lower Leg (including foot), Chest, Abdomen, Buttocks, Perineal Area Shower/Bathe Self (QC): 5 (requiring extensive cueing for sequencing and for encouragement to participate in therapy.) Upper Body Dressing (QC): 6 Lower Body Dressing (QC): 4 (Pt refusing to use print project manager to complete dressing; able to complete with figure 4) On/Off Footwear: 5 (Pt refusing to attempt sock aid; able to complete with figure 4 method) Toileting Hygiene (QC): 6 Toilet Transfer (QC): 6 Other Treatment PT/OT co-treat completed due to the need for two skilled therapists to increase safety during high level activities. OT focused on activity tolerance, ADL independence, UE strength and functional balance. Please refer to the PT note for details following PT care. Pt requiring increased cueing this session to sequence activities that he has previously performed with minimal cueing and to participate fully in activities. Pt not demonstrating consistent level of independence throughout session due to decreased participation and effort; though with maximum encouragement and cueing, pt completed all therapeutic tasks. Education OT Patient Education: Correct positioning, Energy conservation, Home exercise program, Modified ADL techniques, Progress toward Goal/Update tx plan, Purpose of tx/functional activities, Rehab process, Safety issues, Transfer techniques, Use of adapted equipment Teaching Recipient: Patient Teaching Methods: Demonstration, Discussion Response to Teaching: Verbalize Understanding, Return Demonstration, Reinforcement Needed BIMS CAM BIMS Expression of Ideas and Wants: Without Difficulty Understanding Verbal Content: Sometimes Understands Brief Interview/Mental Status: Yes IRF KATHARINA BIMS: IRF KATHARINA BIMS Response (Comments) Value Repitition of Three Words Three 3 Recalls Blue Yes, No Cue Required 2 Recalls Bed No, Could Not Recall 0 Year Correct 3 Month Accurate Within 5 Days 2 Day Correct 1 Total 11 Patient Normally Able to Recal: Current Session, Location of own room, [facility] Should Staff Asses. Mental St.: Yes Memory/Recall Ability: Current Season, Location of Own Room, That He[facility]She in [facility] Mental Status Change/Baseline: 0 Inattention: 0 Disorganized thinkin Altered level of consciousness: 0 OT Short Term Goals Short Term Goals Time Frame: Jan 17, 2023 Eatin Oral hygiene: 5 Toileting hygiene: 5 Shower/bathe self: 3 Upper body dressin Lower body dressin Putting on/taking off footwear: 4 OT Longterm Goals Longterm Goals Time Frame: Jan 24, 2023 Acute change in mental status: 0 Inattention: 0 Disorganized thinkin Altered level of consciousness: 0 Eating (QC): 6 Oral Hygiene (QC): 6 Toileting Hygiene (QC): 6 Shower/Bathe Self (QC): 6 Upper Body Dressing (QC): 6 Lower Body Dressing (QC): 6 On/Off Footwear (QC): 6 1=Demonstrate adherence to instructed precautions during ADL tasks. 2=Patient will verbalize/demonstrate understanding of assistive devices/modifications for ADL. 3=Patient will improve strength/tolerance for activity to enable patient to perform ADL's. OT Education/Plan Problem List/Assessment Assessment: Decreased Activ Tolerance, Decreased Safety Aware, Decreased UE Strength, Impaired Cognition, Impaired Coordination, Impaired Funct Balance, Impaired I ADL's, Impaired Self-Care Skills Discharge Recommendations Plan/Recommendations: Continue POC Barriers to Progress pain, decreased effort Treatment Plan/Plan of Care Treatment,Training & Education: Yes Patient would benefit from OT for education, treatment and training to promote independence in ADL's, mobility, safety and/or upper extremity function for ADL's. Plan of Care: ADL Retraining, Cognitive Retraining, Concurrent Therapy, Functional Mobility, Group Exercise/Act as Ind, UE Funct Exercise/Act Treatment Duration: Feb 07, 2023 Frequency: At least 5 of 7 days/Wk (IRF) Estimated Hrs Per Day: Other (75 minutes per day ) Agreement: Yes Rehab Potential: Fair Time Start Time: 08:00 (OT/PT co-treat [facility] [id number]) Stop Time: 09:15 DATE: Jan 19, 2023 Total Time Billed (hr/min): 75 Billed Treatment Time 1, ADL 4, FA 1 Kavitha Coelho OTR/L Jan 19, 2023 13:19
[2023-01-19 19:47] VITALS: BP 128/76
[2023-01-20] MEDS: oxyCODONE IMMEDIATE RELEASE 5 MG TABLET PO PRN ×2 (04:54→08:44)
[2023-01-20] MEDS: LEVOTHYROXINE 75 MCG TABLET PO SCH (06:09)
[2023-01-20] MEDS: PRIMIDONE 250MG TABLET PO SCH (06:09)
[2023-01-20] MEDS ORDERED: OXC5T PO (06:57)
[2023-01-20] MEDS ORDERED: TMSL.4C PO (06:57)
[2023-01-20] MEDS ORDERED: ASPI-1238 PO (06:57)
--- NOTE | 2023-01-20 06:59 | D/C HH Face to Face Order ---
D/C Face to Face Orders Reconcile Patient Problems Problems Reviewed?: Yes Instructions for Patient Via [facility], Patient Instructions/FollowUp: pcp 1 week Physician to follow Patient: pcp Discharge Diet for Home: No Restrictions Patient Problems: debility Patient Data-Allergies,Ht & Wt Patient Allergies: Coded Allergies: No Known Drug Allergies (Unverified , 12/31/22) Home Health Need/Face to Face Date of Face to Face: Jan 20, 2023 Clinical Findings: Generalized weakness and fatigue, Instability, Muscle weakness I have seen Pt lfsl-mk-vctc: Yes Discharged To: Home Diagnosis/Conditions: debility Patient is Homebound due to: CognItive deficits, Muscle weakness Homebound Status Due to the above stated illness, injury or surgical procedure (medical condition or diagnosis) and associated clinical findings, the patient is homebound because of his/her inability to leave home except with aid of a supportive device and/or person AND leaving the home requires a considerable and taxing effort or is medically contraindicated. Pt req the following assistanc: [facility] Nursing Orders Home Health Services Order: Nursing Services, Pass Worker-Evaluate & Treat, Physical Therapy-Evaluate & Treat Certify Stmt I certify that this patient is under my care and that I, a nurse practitioner or a physician; a post production assistant working with me, had a face to face encounter that - meets the physician face to face encounter requirements with this patient as dated. EVELYN CASSIDY DO Jan 20, 2023 06:59
--- NOTE | 2023-01-20 06:59 | Discharge Summary ---
Diagnosis/Chief Complaint Date of Admission Jan 08, 2023 at 12:11 Date of Discharge Discharge Date: Jan 20, 2023 Discharge Diagnosis Assessment: Weakness Debility Confusion- resolved but still with immediate recall deficit CT head without acute abnormalities CT spine without cause for weakness Aspirin Ezetimibe MRI brain- no evidence of stroke Carotid ultrasound mild disease noted Echo with negative bubble study PT/OT Chest pain Elevated BNP Chronic HFpEF Chest pain resoved Troponin negative BNP elevated Echo with EF 70-75% HTN HLD AFib Pacemaker BPH Obesity Continue home meds as able Urinary incontinence Urinary retention Plan: PT OT Monitor BP Increase mobility 01/09/2023: Supportive care Monitor blood pressure closely 01/10/2023: Continue treatment Monitor closely 01/11/2023: Supportive care Monitor closely 01/12/2023: Supportive care Monitor blood pressure 01/13/2023: Continue treatment Improved edema Incontinence management 01/14/2023: Supportive care Monitor closely 01/15/2023: Supportive care Flomax twice daily 01/16/2023: Supportive care Monitor closely 01/17/2023: Supportive care Discharge to home later this week 01/18/2023: Supportive care Monitor closely 01/19/2023: Supportive care Monitor closely (1) Debilitated patient Status: Acute Discharge Summary Discharge Physical Examination Allergies: Coded Allergies: No Known Drug Allergies (Unverified , 12/31/22) Vitals & I&Os Vital Signs Date Time Temp Pulse Resp B/P (MAP) Pulse Ox O2 Delivery O2 Flow Rate FiO2 01/20/23 10:50 36.6 68 20 120/88 95 Room Air General Appearance: Alert, Oriented X3, Cooperative, Other (Poor recall) Respiratory: Clear to Auscultation Cardiovascular: Regular Rate Hospital Course Was the Problem List Reviewed?: Yes Patient had an uneventful hospital course and she was admitted for debility and weakness and falls. Lower extremity edema resolved. Urinary retention and bladder incontinence both occurred I increase Flomax to 0.5 mg twice daily which helped. Labs remained stable. Poor recall of memory noted but that seems to be an issue chronically. Overall he did very well regained a lot of his baseline function and was deemed stable for discharge Labs (last 24 hrs) Laboratory Tests 01/08/23 16:21: Glucometer 113H 01/08/23 20:51: Glucometer 114H 01/09/23 05:12: White Blood Count 7.1, Red Blood Count 3.92L, Hemoglobin 12.6L, Hematocrit 37L, Mean Corpuscular Volume 95, Mean Corpuscular Hemoglobin 32, Mean Corpuscular Hemoglobin Concent 34, Red Cell Distribution Width 12.9, Platelet Count 286, Mean Platelet Volume 9.2, Immature Granulocyte % (Auto) 1, Neutrophils (%) (Auto) 74, Lymphocytes (%) (Auto) 13, Monocytes (%) (Auto) 9, Eosinophils (%) (Auto) 3, Basophils (%) (Auto) 1, Neutrophils # (Auto) 5.2, Lymphocytes # (Auto) 0.9L, Monocytes # (Auto) 0.6, Eosinophils # (Auto) 0.2, Basophils # (Auto) 0.1, Immature Granulocyte # (Auto) 0.1, Sodium Level 136, Potassium Level 4.1, Chloride Level 107, Carbon Dioxide Level 24, Anion Gap 5, Blood Urea Nitrogen 17 , Creatinine 0.86, Estimat Glomerular Filtration Rate 87, BUN/Creatinine Ratio 20, Glucose Level 121H, Calcium Level 8.4L, Corrected Calcium 9.3, Total Bilirubin 0.3, Aspartate Amino Transf (AST/SGOT) 19, Alanine Aminotransferase (ALT/SGPT) 35, Alkaline Phosphatase 57, Total Protein 5.5L, Albumin 2.9L 01/09/23 11:07: Glucometer 110 01/09/23 16:04: Glucometer 136H 01/09/23 20:40: Glucometer 100 01/10/23 04:58: Glucometer 109 01/10/23 11:46: Glucometer 100 01/10/23 15:39: Glucometer 109 01/10/23 20:30: Glucometer 156H 01/14/23 07:10: White Blood Count 7.3, Red Blood Count 3.98L, Hemoglobin 12.7L, Hematocrit 38L, Mean Corpuscular Volume 95, Mean Corpuscular Hemoglobin 32, Mean Corpuscular Hemoglobin Concent 34, Red Cell Distribution Width 12.8, Platelet Count 275, Mean Platelet Volume 8.8L, Immature Granulocyte % (Auto) 0, Neutrophils (%) (Auto) 75, Lymphocytes (%) (Auto) 14, Monocytes (%) (Auto) 7, Eosinophils (%) (Auto) 3, Basophils (%) (Auto) 1, Neutrophils # (Auto) 5.5, Lymphocytes # (Auto) 1.0, Monocytes # (Auto) 0.5, Eosinophils # (Auto) 0.2, Basophils # (Auto) 0.1, Immature Granulocyte # (Auto) 0.0, Sodium Level 138, Potassium Level 3.8, Chloride Level 107, Carbon Dioxide Level 25, Anion Gap 6, Blood Urea Nitrogen 17, Creatinine 0.95, Estimat Glomerular Filtration Rate 80, BUN/Creatinine Ratio 18, Glucose Level 107H, Calcium Level 8.7, Corrected Calcium 9.3, Total Bilirubin 0.4, Aspartate Amino Transf (AST/SGOT) 22, Alanine Aminotransferase (ALT/SGPT) 34, Alkaline Phosphatase 80, Total Protein 5.8L, Albumin 3.2 Pending Labs Laboratory Tests 01/08/23 16:21: Glucometer 113 01/08/23 20:51: Glucometer 114 01/09/23 05:12: White Blood Count 7.1, Red Blood Count 3.92, Hemoglobin 12.6, Hematocrit 37, Mean Corpuscular Volume 95, Mean Corpuscular Hemoglobin 32, Mean Corpuscular Hemoglobin Concent 34, Red Cell Distribution Width 12.9, Platelet Count 286, Mean Platelet Volume 9.2, Immature Granulocyte % (Auto) 1, Neutrophils (%) (Auto) 74, Lymphocytes (%) (Auto) 13, Monocytes (%) (Auto) 9, Eosinophils (%) (Auto) 3, Basophils (%) (Auto) 1, Neutrophils # (Auto) 5.2, Lymphocytes # (Auto) 0.9, Monocytes # (Auto) 0.6, Eosinophils # (Auto) 0.2, Basophils # (Auto) 0.1, Immature Granulocyte # (Auto) 0.1, Sodium Level 136, Potassium Level 4.1, Chloride Level 107, Carbon Dioxide Level 24, Anion Gap 5, Blood Urea Nitrogen 17, Creatinine 0.86, Estimat Glomerular Filtration Rate 87, BUN/Creatinine Ratio 20, Glucose Level 121, Calcium Level 8.4, Corrected Calcium 9.3, Total Bilirubin 0.3, Aspartate Amino Transf (AST/SGOT) 19, Alanine Aminotransferase (ALT/SGPT) 35, Alkaline Phosphatase 57, Total Protein 5.5, Albumin 2.9 01/09/23 11:07: Glucometer 110 01/09/23 16:04: Glucometer 136 01/09/23 20:40: Glucometer 100 01/10/23 04:58: Glucometer 109 01/10/23 11:46: Glucometer 100 01/10/23 15:39: Glucometer 109 01/10/23 20:30: Glucometer 156 01/14/23 07:10: White Blood Count 7.3, Red Blood Count 3.98, Hemoglobin 12.7, Hematocrit 38, Mean Corpuscular Volume 95, Mean Corpuscular Hemoglobin 32, Mean Corpuscular Hemoglobin Concent 34, Red Cell Distribution Width 12.8, Platelet Count 275, Mean Platelet Volume 8.8, Immature Granulocyte % (Auto) 0, Neutrophils (%) (Auto) 75, Lymphocytes (%) (Auto) 14, Monocytes (%) (Auto) 7, Eosinophils (%) (Auto) 3, Basophils (%) (Auto) 1, Neutrophils # (Auto) 5.5, Lymphocytes # (Auto) 1.0, Monocytes # (Auto) 0.5, Eosinophils # (Auto) 0.2, Basophils # (Auto) 0.1, Immature Granulocyte # (Auto) 0.0, Sodium Level 138, Potassium Level 3.8, Chloride Level 107, Carbon Dioxide Level 25, Anion Gap 6, Blood Urea Nitrogen 17, Creatinine 0.95, Estimat Glomerular Filtration Rate 80, BUN/Creatinine Ratio 18, Glucose Level 107, Calcium Level 8.7, Corrected Calcium 9.3, Total Bilirubin 0.4, Aspartate Amino Transf (AST/SGOT) 22, Alanine Aminotransferase (ALT/SGPT) 34, Alkaline Phosphatase 80, Total Protein 5.8, Albumin 3.2 Discharge Home Medications: Active Scripts Active Oxyir Tablet (Oxycodone HCl) 5 Mg Tab 5 Mg PO Q4H PRN Aspirin EC (Aspirin) 81 Mg Tablet.dr 81 Mg PO DAILY Flomax (Tamsulosin HCl) 0.4 Mg Cap 0.4 Mg PO BID Reported Advair 250-50 Diskus (Fluticasone/Salmeterol) 250 Mcg-50 Mcg/Dose Blst.w.dev 1 Each IH DAILY PRN Cetirizine HCl 10 Mg Tablet 10 Mg PO DAILY PRN Eliquis (Apixaban) 5 Mg Tablet 5 Mg PO BID Metformin HCl 500 Mg Tablet 500 Mg PO BID Primidone 125 Mg Tablet 250 Mg PO HS Synthroid (Levothyroxine Sodium) 75 Mcg Tablet 75 Mcg PO DAILY Ezetimibe 10 Mg Tablet 10 Mg PO DAILY Finasteride 5 Mg Tablet 5 Mg PO DAILY Instructions to patient/family Please see electronic discharge instructions given to patient. Diagnosis/Problems Diagnosis/Problems (1) Debilitated patient Status: Acute EVELYN CASSIDY DO Jan 20, 2023 06:59
[2023-01-20 07:21] VITALS: BP 117/61
[2023-01-20] MEDS: TAMSULOSIN 0.4 MG (FLOMAX) CAP PO SCH (08:44)
[2023-01-20] MEDS: MICONAZOLE 2% POWDER 90 GM TOP SCH (08:44)
[2023-01-20] MEDS: ASPIRIN enteric coated 81MG TABLET PO SCH (08:44)
[2023-01-20] MEDS: APIXABAN 5 MG TABLET PO SCH (08:44)
[2023-01-20] MEDS: FINASTERIDE 5 MG TABLET PO SCH (08:44)
[2023-01-20] MEDS: DOCUSATE SODIUM 100 MG CAPSULE PO SCH (09:39)
[2023-01-20] MEDS: SENNA W/DOCUSATE TABLET PO SCH (09:39)
[2023-01-20 10:50] VITALS: BP 120/88
--- NOTE | 2023-01-20 10:51 | Occupational Ther Daily Note ---
OT Current Status-Daily Note Subjective Pt. alert sitting in recliner with nephew present in room. No c/o pain. Pt. agreed to therapy. OT/PT co-treat([id number]), skills of 2 clinicians required for family training, decrease fall risk and increase overall safety with functional mobility. PT focusing on ambulation, stairs, family education and transfers while OT focusing on family education, ADLs, functional mobility and assisting with all mobility. Mental Status/Objective Patient Orientation: Person, Place, Time, Situation ADL-Treatment Therapy Code Descriptions/Definitions Functional [place] Measure: 0=Not Assessed/NA 4=Minimal Assistance 1=Total Assistance 5=Supervision or Setup 2=Maximal Assistance 6=Modified [place] 3=Moderate Assistance 7=Complete IndependenceSCALE: Activities may be completed with or without assistive devices. 5-Kjcelhpcbn-fgiglzw completes the activity by him/herself with no assistance from a helper. 5-Set-up or Clean-up Assistance-helper sets up or cleans up; patient completes activity. [place] assists only prior to or following the activity. 4-Supervision or Touching Assistance-helper provides verbal cues and/or touching/steadying and/or contact guard assistance as patient completes activity. Assistance may be provided throughout the activity or intermittently. 3-Partial/Moderate Assistance-helper does LESS THAN HALF the effort. [place] lifts, holds or supports trunk or limbs, but provides less than half the effort. 2-Substantial/Maximal Assistance-helper does MORE THAN HALF the effort. [place] lifts or holds trunk or limbs and provides more than half the effort. 9-Wpbytuktb-smqjty does ALL the effort. Patient does none of the effort to complete the activity. Or, the assistance of 2 or more helpers is required for the patient to complete the activity. If activity was not attempted, code reason: 7-Patient Refused. 9-Not Applicable-not attempted and the patient did not perform the activity before the current illness, exacerbation or injury. 10-Not Attempted due to Environmental Limitations-(lack of equipment, weather restraints, etc.). 88-Not Attempted due to Medical Conditions or Safety Concerns. Other Treatment Family training with nephew OT Short Term Goals Short Term Goals Time Frame: Jan 17, 2023 Eatin Oral hygiene: 5 Toileting hygiene: 5 Shower/bathe self: 3 Upper body dressin Lower body dressin Putting on/taking off footwear: 4 OT Clamp Operator Goals Jail Goals Time Frame: Jan 24, 2023 Acute change in mental status: 0 Inattention: 0 Disorganized thinkin Altered level of consciousness: 0 Eating (QC): 6 Oral Hygiene (QC): 6 Toileting Hygiene (QC): 6 Shower/Bathe Self (QC): 6 Upper Body Dressing (QC): 6 Lower Body Dressing (QC): 6 On/Off Footwear (QC): 6 1=Demonstrate adherence to instructed precautions during ADL tasks. 2=Patient will verbalize/demonstrate understanding of assistive devices/modifications for ADL. 3=Patient will improve strength/tolerance for activity to enable patient to perform ADL's. OT Education/Plan Problem List/Assessment Assessment: Decreased UE Strength, Impaired Funct Balance, Impaired Self-Care Skills Discharge Recommendations Plan/Recommendations: Continue POC Treatment Plan/Plan of Care Patient would benefit from OT for education, treatment and training to promote independence in ADL's, mobility, safety and/or upper extremity function for ADL's. Plan of Care: ADL Retraining, Cognitive Retraining, Concurrent Therapy, Functional Mobility, Group Exercise/Act as Ind, UE Funct Exercise/Act Treatment Duration: Feb 07, 2023 Frequency: At least 5 of 7 days/Wk (IRF) Estimated Hrs Per Day: Other (75 minutes per day ) Agreement: Yes Rehab Potential: Fair Time Start Time: 10:15 Stop Time: 10:30 DATE: Jan 20, 2023 Total Time Billed (hr/min): 15 Billed Treatment Time 1 visit- FA 1 (15 mins) co-treat with PT ([id number]) BRIA LISA Jan 20, 2023 10:51
--- NOTE | 2023-01-20 12:46 | Physical Therapy Daily Note ---
PT Daily Note-Current Subjective Co-treat with OT [id number] for family trianing with nephew to eview upright safety, gait and transfers while OT focused on ADL activities. Discussed that patient has the ability to walk up to 97' /c FWW CGA and transfer CGA when he choses to participate. Discussed that home health PT will continue to follow in the home. Discussed that nephew will have to assist patient with any stairs, and level entry is recommended at this time. Nephew asked that therapist verbalize that patient should not be using his stairs to go to his basement - this was reinforced by this P.T. Pain Section J - Health Conditions 1. Rarely or not at all 2. Occasionally 3. Frequently 4. Almost constantly 8. Unable to answer Pain Effect on Sleep: 1 Pain Interference with Therapy: 2 Pain Interference w/Day-to-Day: 1 Transfers SCALE: Activities may be completed with or without assistive devices. 0-Hzrejmijly-cjmpjyg completes the activity by him/herself with no assistance from a helper. 5-Set-up or Clean-up Assistance-helper sets up or cleans up; patient completes activity. [place] assists only prior to or following the activity. 4-Supervision or Touching Assistance-helper provides verbal cues and/or touching/steadying and/or contact guard assistance as patient completes activity. Assistance may be provided throughout the activity or intermittently. 3-Partial/Moderate Assistance-helper does LESS THAN HALF the effort. [place] lifts, holds or supports trunk or limbs, but provides less than half the effort. 2-Substantial/Maximal Assistance-helper does MORE THAN HALF the effort. [place] lifts or holds trunk or limbs and provides more than half the effort. 3-Kukqnmwix-ihpukf does ALL the effort. Patient does none of the effort to complete the activity. Or, the assistance of 2 or more helpers is required for the patient to complete the activity. If activity was not attempted, code reason: 7-Patient Refused. 9-Not Applicable-not attempted and the patient did not perform the activity before the current illness, exacerbation or injury. 10-Not Attempted due to Environmental Limitations-(lack of equipment, weather restraints, etc.). 88-Not Attempted due to Medical Conditions or Safety Concerns. Weight Bearing Right Lower Extremity: Right Full Weight Bearing Left Lower Extremity: Left Full Weight Bearing PT Retirement Goals Student Officer Goals PT Student Officer Goals Time Frame: Jan 24, 2023 Roll Left & Right (QC): 6 Sit to Lying (QC): 6 Lying-Sitting on Side/Bed(QC): 6 Sit to Stand (QC): 6 Chair/Bpo-du-Cxtak Xfer(QC): 6 (/c FWW) Toilet Transfer (QC): 6 Car Transfer (QC): 5 Does the Patient Walk: Yes Walk 10 feet (QC): 6 (/c FWW) Walk 50ft with 2 Turns (QC): 6 (/c FWW) Walk 150 ft (QC): 6 (/c FWW) Walking 10ft on Uneven Surface: 4 (SBA /c FWW) 1 Step (curb) (QC): 4 (CGA /c cues and FWW) 4 Steps (QC): 4 (/c (B) rails) 12 Steps (QC): 4 (/c (B) rails) Picking up an Object (QC): 5 (/c explosives mixer operator) Does the Pt use WC or Scooter?: Yes Wheel 50 feet with 2 turns (QC: 6 Type: Manual Wheel 150 feet: 6 Type: Manual PT Plan Treatment/Plan Treatment Plan: Discontinue PT, goals met Treatment Plan: Bed Mobility, Concurrent Therapy, Education, Functional Activity Christelle, Functional Strength, Group Therapy, Gait, Safety, Therapeutic Exercise, Transfers Treatment Duration: Jan 24, 2023 Frequency: At least 5 of 7 days/Wk (IRF) Estimated Hrs Per Day: 1.5 hours per day Patient and/or Family Agrees t: Yes Discharge Recommendations Target Placement Home /c in-home caregivers and HH P.T. Time Time In: 1015 Time Out: 1030 DATE: Jan 20, 2023 Total Billed Treatment Time: 15 Total Billed Treatment co-treat [id number], 1 FA Shirley Lamb PT Jan 20, 2023 12:46
--- NOTE | 2023-01-20 15:19 | Therapy Team Discharge Summary ---
Therapy Discharge Summary Discharge Recommendations Date of Discharge Therapy D/C Recommendations: Occupational Therapy Home Care Physical Therapy Roll Left to Right (QC): 6 (with bed rail to (L), none to (R)) Sit to Lying (QC): 6 Lying to Sitting/Side of Bed(Q: 6 (/s bed rail use) Sit to Stand (QC): 4 (CGA, increased time to complete) Chair/Bux-sj-Xhymd Xfer(QC): 4 (CGA /c FWW) Toilet Transfer (QC): 3 Car Transfer (QC): 4 (/c FWW) Does the Patient Walk: Yes Walk 10 feet (QC): 4 (CGA /c FWW) Walk 50 ft with 2 Turns(QC): 4 (/c FWW CGA) Walk 150 ft (QC): 88 (unable to make 150' due to knee pain, endurance) Walking 10ft on uneven surface: 4 (CGA /c FWW) Distance: 68', 44' Gait Assistive Device: FWW Does the Pt Use a Wheelchair: Yes Wheelchair Distance: 20' SBA to propel /c (B) UE's, distance limited by fatgiue Wheel 50 ft with 2 turns (QC): 6 Wheel 150 ft (QC): 6 Type of Wheelchair: Manual 1 Step (curb) (QC): 1 (mod (A) of 2 - required assist of 2 people for stepping up and walker management coming down curb) 4 Steps (QC): 1 (min (A) of 2 /c significantly increased time to complete) 12 Steps (QC): 88 (not safe due to pain and activity tolerance limitations) Walking Assistive Device: Walker Balance Sitting Static: Good Balance Sitting Dynamic: Fair Balance-Standing Static: Fair Picking up an Object (QC): 4 (CGA using medical physics researcher) Occupational Therapy Pt admitted to ARU with debility. He required some assistance with ADLs at [facility]. Upon initial evaluation, pt required set up assistance with eating, SBA-CGA with oral care and UBD, max A showering, and partial assistance with LBD, footwear and toileting. OT tx focused on increasing BUE Strength and activity tolerance, and increasing safety and independence with ADLS and functional mobility. Pt made some progress towards goals, attaining IND level with eating, oral care, UBD and toileting. Pt discharged home, d/c from OT Decreased UE Strength, Impaired Funct Balance, Impaired Self-Care Skills Eating (QC): 6 Oral Hygiene (QC): 6 (standing at sink ) Shower/Bathe Self (QC): 5 (requiring extensive cueing for sequencing and for encouragement to participate in therapy.) Upper Body Dressing (QC): 6 Lower Body Dressing (QC): 4 (Pt refusing to use medical physics researcher to complete dressing; able to complete with figure 4) On/Off Footwear (QC): 5 (Pt refusing to attempt sock aid; able to complete with figure 4 method) Toileting Hygiene (QC): 6 PT Long-Term Goals Long-Term Goals PT Long-Term Goals Time Frame: Jan 24, 2023 Roll Left to Right (QC): 6 Sit to Lying (QC): 6 Lying-Sitting on Side/Bed(QC): 6 Sit to Stand (QC): 6 Chair/Rku-yq-Vxuek Xfer(QC): 6 (/c FWW) Toilet/Commode Transfer (QC): 6 Car Transfer (QC): 5 Does the Patient Walk: Yes Walk 10 feet (QC): 6 (/c FWW) Walk 10ft-Uneven Surface(QC): 4 (SBA /c FWW) Walk 50ft with 2 Turns (QC): 6 (/c FWW) Walk 150 ft (QC): 6 (/c FWW) Does the Pt use WC or Scooter?: Yes Wheel 50 feet with 2 turns (QC: 6 Type: Manual Wheel 150 feet: 6 Type: Manual 1 Step (curb) (QC): 4 (CGA /c cues and FWW) 4 Steps (QC): 4 (/c (B) rails) 12 Steps (QC): 4 (/c (B) rails) Picking up an Object (QC): 5 (/c medical physics researcher) OT Long-Term Goals Long-Term Goals Time Frame: Jan 24, 2023 Acute change in mental status: 0 Inattention: 0 Disorganized thinkin Altered level of consciousness: 0 Eating (QC): 6 (met) Oral Hygiene (QC): 6 (met) Toileting Hygiene (QC): 6 (met) Shower/Bathe Self (QC): 6 (not met) Upper Body Dressing (QC): 6 (met) Lower Body Dressing (QC): 6 (not met) On/Off Footwear (QC): 6 (not met) 1=Demonstrate adherence to instructed precautions during ADL tasks. 2=Patient will verbalize/demonstrate understanding of assistive devices/modifications for ADL. 3=Patient will improve strength/tolerance for activity to enable patient to perform ADL's. Speech Long-Term Goals Long-Term Goals Pt will complete simple reasoning tasks to improve orientation and problem solving with 80% accuracy. Pt will demonstrate the ability to follow multi-step directions related to functional living with 80% accuracy. Pt will demonstrate recall of functional information following a short-term and long-term delay with 80% accuracy. NONA KO OT Jan 20, 2023 15:19
--- NOTE | 2023-01-24 13:37 | Therapy Team Discharge Summary ---
Therapy Discharge Summary Discharge Recommendations Date of Discharge Jan 20, 2023 at 10:50 Therapy D/C Recommendations: Occupational Therapy Home Care Physical Therapy Patient admitted to ARU for dx of debility. Patient demonstrated the ability to walk 97' CGA /c FWW and was (I) with all bed mobility, CGA with transfers using the FWW on 01/19/23. His Elderly Mobility Scale score on 01/19/23 was 8/20. (compared to 7/20 at [facility]). It was recommended that patient have nephew with him if patient needed to ascend/descend stairs - the nephew stated the patient has a level entry at home. Reiterated to patient that he should NOT attempt his basement stairs. There were times during the patient's stay that he needed encouragement to participate, but he demonstrated the ability to complete tasks as noted above. The patient's nephew was educated on patient's abilities on 01/20/23, prior to patient's discharge from the ARU. Roll Left to Right (QC): 6 (with bed rail to (L), none to (R)) Sit to Lying (QC): 6 Lying to Sitting/Side of Bed(Q: 6 (/s bed rail use) Sit to Stand (QC): 4 (CGA, increased time to complete) Chair/Mde-qr-Ionma Xfer(QC): 4 (CGA /c FWW) Toilet Transfer (QC): 4 (CGA /c FWW) Car Transfer (QC): 4 (/c FWW) Does the Patient Walk: Yes Walk 10 feet (QC): 4 (CGA /c FWW) Walk 50 ft with 2 Turns(QC): 4 (/c FWW CGA) Walk 150 ft (QC): 88 (unable to make 150' due to knee pain, endurance) Walking 10ft on uneven surface: 4 (CGA /c FWW) Distance: 97' max distance. Gait Assistive Device: FWW Does the Pt Use a Wheelchair: Yes Wheel 50 ft with 2 turns (QC): 6 Wheel 150 ft (QC): 6 Type of Wheelchair: Manual 1 Step (curb) (QC): 1 (mod (A) of 2 - required assist of 2 people for stepping up and walker management coming down curb) 4 Steps (QC): 1 (min (A) of 2 /c significantly increased time to complete) 12 Steps (QC): 88 (not safe due to pain and activity tolerance limitations) Walking Assistive Device: Walker Balance Sitting Static: Good Balance Sitting Dynamic: Fair Balance-Standing Static: Fair Picking up an Object (QC): 4 (CGA using hydrogen plant operator) Occupational Therapy Decreased UE Strength, Impaired Funct Balance, Impaired Self-Care Skills Eating (QC): 6 Oral Hygiene (QC): 6 (standing at sink ) Shower/Bathe Self (QC): 5 (requiring extensive cueing for sequencing and for encouragement to participate in therapy.) Upper Body Dressing (QC): 6 Lower Body Dressing (QC): 4 (Pt refusing to use hydrogen plant operator to complete dressing; able to complete with figure 4) On/Off Footwear (QC): 5 (Pt refusing to attempt sock aid; able to complete with figure 4 method) Toileting Hygiene (QC): 6 PT Correction Goals Correction Goals PT Correction Goals Time Frame: Jan 24, 2023 Roll Left to Right (QC): 6 Sit to Lying (QC): 6 Lying-Sitting on Side/Bed(QC): 6 Sit to Stand (QC): 6 Chair/Nuy-zf-Ojdta Xfer(QC): 6 (/c FWW) Toilet/Commode Transfer (QC): 6 Car Transfer (QC): 5 Does the Patient Walk: Yes Walk 10 feet (QC): 6 (/c FWW) Walk 10ft-Uneven Surface(QC): 4 (SBA /c FWW) Walk 50ft with 2 Turns (QC): 6 (/c FWW) Walk 150 ft (QC): 6 (/c FWW) Does the Pt use WC or Scooter?: Yes Wheel 50 feet with 2 turns (QC: 6 Type: Manual Wheel 150 feet: 6 Type: Manual 1 Step (curb) (QC): 4 (CGA /c cues and FWW) 4 Steps (QC): 4 (/c (B) rails) 12 Steps (QC): 4 (/c (B) rails) Picking up an Object (QC): 5 (/c hydrogen plant operator) OT Correction Goals Global Program Manager Goals Time Frame: Jan 24, 2023 Acute change in mental status: 0 Inattention: 0 Disorganized thinkin Altered level of consciousness: 0 Eating (QC): 6 (met) Oral Hygiene (QC): 6 (met) Toileting Hygiene (QC): 6 (met) Shower/Bathe Self (QC): 6 (not met) Upper Body Dressing (QC): 6 (met) Lower Body Dressing (QC): 6 (not met) On/Off Footwear (QC): 6 (not met) 1=Demonstrate adherence to instructed precautions during ADL tasks. 2=Patient will verbalize/demonstrate understanding of assistive devices/modifications for ADL. 3=Patient will improve strength/tolerance for activity to enable patient to perform ADL's. Speech Correction Goals Global Program Manager Goals Pt will complete simple reasoning tasks to improve orientation and problem solving with 80% accuracy. Pt will demonstrate the ability to follow multi-step directions related to functional living with 80% accuracy. Pt will demonstrate recall of functional information following a short-term and long-term delay with 80% accuracy. Shirley Lamb PT Jan 24, 2023 13:37
--- NOTE | 2023-01-24 15:24 | Therapy Team Discharge Summary ---
Therapy Discharge Summary Discharge Recommendations Date of Discharge Jan 20, 2023 at 10:50 Therapy D/C Recommendations: Occupational Therapy Home Care Physical Therapy Roll Left to Right (QC): 6 (with bed rail to (L), none to (R)) Sit to Lying (QC): 6 Lying to Sitting/Side of Bed(Q: 6 (/s bed rail use) Sit to Stand (QC): 4 (CGA, increased time to complete) Chair/Wur-jx-Fnqnt Xfer(QC): 4 (CGA /c FWW) Toilet Transfer (QC): 4 (CGA /c FWW) Car Transfer (QC): 4 (/c FWW) Does the Patient Walk: Yes Walk 10 feet (QC): 4 (CGA /c FWW) Walk 50 ft with 2 Turns(QC): 4 (/c FWW CGA) Walk 150 ft (QC): 88 (unable to make 150' due to knee pain, endurance) Walking 10ft on uneven surface: 4 (CGA /c FWW) Distance: 97' max distance. Gait Assistive Device: FWW Does the Pt Use a Wheelchair: Yes Wheel 50 ft with 2 turns (QC): 6 Wheel 150 ft (QC): 6 Type of Wheelchair: Manual 1 Step (curb) (QC): 1 (mod (A) of 2 - required assist of 2 people for stepping up and walker management coming down curb) 4 Steps (QC): 1 (min (A) of 2 /c significantly increased time to complete) 12 Steps (QC): 88 (not safe due to pain and activity tolerance limitations) Walking Assistive Device: Walker Balance Sitting Static: Good Balance Sitting Dynamic: Fair Balance-Standing Static: Fair Picking up an Object (QC): 4 (CGA using supervisor composing room) Occupational Therapy Decreased UE Strength, Impaired Funct Balance, Impaired Self-Care Skills Eating (QC): 6 Oral Hygiene (QC): 6 (standing at sink ) Shower/Bathe Self (QC): 5 (requiring extensive cueing for sequencing and for encouragement to participate in therapy.) Upper Body Dressing (QC): 6 Lower Body Dressing (QC): 4 (Pt refusing to use supervisor composing room to complete dressing; able to complete with figure 4) On/Off Footwear (QC): 5 (Pt refusing to attempt sock aid; able to complete with figure 4 method) Toileting Hygiene (QC): 6 Speech-Language Pathology Pt admitted to ARU with debility. He required some assistance with ADLs at [facility]. Upon initial evaluation, pt demonstrated cognitive-linguistic deficits in orientation, problem solving, following directions, and recall of functional information. TOLL GATE TENDER tx focused on these cognitive-linguistic skills to increase independence. Pt made some progress, but did not reach max potential due to self-limiting behaviors. Pt discharged home, d/c from TOLL GATE TENDER. PT Associate Web Developer Goals Associate Web Developer Goals PT Associate Web Developer Goals Time Frame: Jan 24, 2023 Roll Left to Right (QC): 6 Sit to Lying (QC): 6 Lying-Sitting on Side/Bed(QC): 6 Sit to Stand (QC): 6 Chair/Lda-wo-Jsihv Xfer(QC): 6 (/c FWW) Toilet/Commode Transfer (QC): 6 Car Transfer (QC): 5 Does the Patient Walk: Yes Walk 10 feet (QC): 6 (/c FWW) Walk 10ft-Uneven Surface(QC): 4 (SBA /c FWW) Walk 50ft with 2 Turns (QC): 6 (/c FWW) Walk 150 ft (QC): 6 (/c FWW) Does the Pt use WC or Scooter?: Yes Wheel 50 feet with 2 turns (QC: 6 Type: Manual Wheel 150 feet: 6 Type: Manual 1 Step (curb) (QC): 4 (CGA /c cues and FWW) 4 Steps (QC): 4 (/c (B) rails) 12 Steps (QC): 4 (/c (B) rails) Picking up an Object (QC): 5 (/c supervisor composing room) OT Associate Web Developer Goals Senior Care Goals Time Frame: Jan 24, 2023 Acute change in mental status: 0 Inattention: 0 Disorganized thinkin Altered level of consciousness: 0 Eating (QC): 6 (met) Oral Hygiene (QC): 6 (met) Toileting Hygiene (QC): 6 (met) Shower/Bathe Self (QC): 6 (not met) Upper Body Dressing (QC): 6 (met) Lower Body Dressing (QC): 6 (not met) On/Off Footwear (QC): 6 (not met) 1=Demonstrate adherence to instructed precautions during ADL tasks. 2=Patient will verbalize/demonstrate understanding of assistive devices/modifications for ADL. 3=Patient will improve strength/tolerance for activity to enable patient to perform ADL's. Speech Senior Care Goals Senior Care Goals Pt will complete simple reasoning tasks to improve orientation and problem solving with 80% accuracy. Pt will demonstrate the ability to follow multi-step directions related to functional living with 80% accuracy. Pt will demonstrate recall of functional information following a short-term and long-term delay with 80% accuracy. Jessica Tran Jan 24, 2023 15:24
== END 2023-01-20 10:50 | disposition home health service (06) | DRG 948 ==
PROVIDERS: ADMIT Internal Medicine; ATTEND Internal Medicine
DX: R53.81 Other malaise (principal); I50.32 Chronic diastolic (congestive) heart failure; E87.20 Acidosis, unspecified; F05 Delirium due to known physiological condition; I11.0 Hypertensive heart disease with heart failure; N40.1 Benign prostatic hyperplasia with lower urinary tract symptoms; N39.498 Other specified urinary incontinence; R33.9 Retention of urine, unspecified; R25.1 Tremor, unspecified; E11.9 Type 2 diabetes mellitus without complications; E78.00 Pure hypercholesterolemia, unspecified; I48.91 Unspecified atrial fibrillation; E66.9 Obesity, unspecified; F03.90 Unspecified dementia, unspecified severity, without behavioral disturbance, psychotic disturbance, mood disturbance, and anxiety; Z79.01 Long term (current) use of anticoagulants; Z68.31 Body mass index [BMI] 31.0-31.9, adult; Z79.84 Long term (current) use of oral hypoglycemic drugs; Z79.899 Other long term (current) drug therapy
CPT/HCPCS: 36415; 80053; 82947; 85025; 94760